=== PATIENT | male | born 1940 | race Caucasian/White ===

== ENCOUNTER → 2016-12-30 | Outpatient (CLI) | payer MEDICARE, OTHER | LOC: RAD 08:42 | PROVIDERS: ATTEND Nurse Practitioner Family | DX: R13.10 Dysphagia, unspecified (principal) | CPT/HCPCS: 74220 ==

== ENCOUNTER → 2017-01-21 | Day surgery (SDC) | payer MEDICARE, OTHER ==
[~2017-01-21] MED LIST: LIDOCAINE 2% JELLY 5 ML TUBE ONE
== END ==
LOC: END 07:24
PROVIDERS: ATTEND Nurse Practitioner Family
PROC: 4A0B7BZ Measurement of Gastrointestinal Pressure, Via Natural or Artificial Opening (ICD-10-PCS; principal; 2017-01-21)
DX: R13.10 Dysphagia, unspecified (principal)
CPT/HCPCS: 91010

== ENCOUNTER 2017-02-19 10:02 | Emergency (ER) | payer OTHER, MEDICARE ==
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
[2017-02-19] MEDS ORDERED: ACETAMINOPHEN 325 MG TABLET PO ONE (10:34)
[2017-02-19 11:27] VITALS: BP 166/79
== END 2017-02-19 11:27 | disposition home or self-care (01) ==
LOC: ER 10:02
DX: S02.40EA Zygomatic fracture, right side, initial encounter for closed fracture (principal); R68.84 Jaw pain; R22.0 Localized swelling, mass and lump, head; W22.8XXA Striking against or struck by other objects, initial encounter
CPT/HCPCS: 70486; 99284

== ENCOUNTER 2017-04-27 09:52 | Emergency (ER) | payer OTHER, MEDICARE ==
--- NOTE | 2017-04-27 10:57 | ER Document Report ---
ED Medical Screen (RME) - General Chief Complaint: Abdominal Pain Stated Complaint: ABDOMINAL PAIN,GROIN PAIN Time Seen by Provider: 04/27/17 10:53 Mode of Arrival: Ambulatory Information source: Patient TRAVEL OUTSIDE OF THE [place] IN LAST 30 DAYS: No - HPI Patient complains to provider of: abdominal pain Notes: 04/27/17 10:56 patient is a 76-year-old male who presents to the emergency room complaining of pain, mostly in his abdomen which radiates down into his testicles, he does report that he hurts "from my head to my toes", symptoms have been going on for the past 4-5 months, he was seen at [facility] recently and diagnosed with hematuria and proteinuria, was advised to get a CT scan which is scheduled for this Thursday, however he [facility] morning to tell them that he was not feeling any better and they advised him to come to the emergency room - Related Data Allergies/Adverse Reactions: latex Allergy (Verified 04/27/17 09:55) Past Medical History - Past Medical History Cardiac Medical History: Reports: Hx Coronary Artery Disease, Hx Hypertension Denies: Hx Heart Attack Pulmonary Medical History: Reports: Hx COPD Denies: Hx Asthma, Hx Bronchitis, Hx Pneumonia, Hx Tuberculosis Neurological Medical History: Denies: Hx Cerebrovascular Accident, Hx Seizures Endocrine Medical History: Reports: Hx Diabetes Mellitus Type 2 Renal/ Medical History: Denies: Hx Peritoneal Dialysis GI Medical History: Reports: Hx Gastroesophageal Reflux Disease Musculoskeltal Medical History: Reports Hx Arthritis Psychiatric Medical History: Denies: Hx Depression Past Surgical History: Reports: Hx Abdominal Surgery - had here, colon, Hx Bowel Surgery, Hx Testicular Surgery. Denies: Hx Pacemaker - Immunizations Immunizations up to date: Yes Hx Diphtheria, Pertussis, Tetanus Vaccination: Yes Physical Exam - Vital signs Vitals: Temp Pulse Resp BP Pulse Ox 98 F 83 18 126/71 H 96 04/27/17 09:55 04/27/17 09:55 04/27/17 09:55 04/27/17 09:55 04/27/17 09:55 Course - Vital Signs Vital signs: Temp Pulse Resp BP Pulse Ox 98 F 83 18 126/71 H 96 04/27/17 09:55 04/27/17 09:55 04/27/17 09:55 04/27/17 09:55 04/27/17 09:55
[2017-04-27 11:39] LABS: ABSOLUTE EOSINOPHILS # (AUTO) 0.1 10^3/uL (0.0-0.6); ABSOLUTE LYMPHOCYTES (AUTO) 1.3 10^3/uL (0.5-4.7); ABSOLUTE MONOCYTES (AUTO) 0.6 10^3/uL (0.1-1.4); ABSOLUTE NEUT (AUTO) 4.7 10^3/uL (1.7-8.2); BASOPHILS % (AUTO) 0.7 % (0-2); EOSINOPHILS % (AUTO) 1.4 % (0-6); HEMATOCRIT 39.6 % (37.9-51.0); HEMOGLOBIN 13.3 g/dL (13.5-17.0); HGB HCT DIFFERENCE 0.3; LYMPHOCYTES % (AUTO) 19.1 % (13-45); MEAN CORPUSCULAR HEMOGLOBIN 29.4 pg (27.0-33.4); MEAN CORPUSCULAR HGB CONC 33.5 g/dL (32.0-36.0); MEAN CORPUSCULAR VOLUME 88 fl (80-97); MONOCYTES % (AUTO) 8.5 % (3-13); RED BLOOD COUNT 4.52 10^6/uL (4.35-5.55); SEGMENTED NEUTROPHILS % (AUTO) 70.3 % (42-78); WHITE BLOOD COUNT 6.7 10^3/uL (4.0-10.5)
[2017-04-27 11:42] LABS: APPEARANCE,URINE CLOUDY; BILIRUBIN,URINE NEGATIVE (NEGATIVE); CALCIUM OXALATE CRYSTALS,URINE TOO NUMEROUS TO CNT /HPF; GLUCOSE, URINE NEGATIVE (NEGATIVE); KETONES,URINE NEGATIVE (NEGATIVE); LEUKOCYTE ESTERASE,URINE NEGATIVE (NEGATIVE); NITRITE,URINE NEGATIVE (NEGATIVE); PROTEIN,URINE 30 mg/dL (NEGATIVE); URINE SPECIFIC GRAVITY 1.029; UROBILINOGEN,URINE NEGATIVE mg/dL (<2.0)
[2017-04-27 11:54] LABS: ALANINE AMINOTRANSFERASE 32 U/L (21-72); ALBUMIN 4.6 g/dL (3.5-5.0); ALKALINE PHOSPHATASE 71 U/L (38-126); ANION GAP 13 (5-19); ASPARTATE AMINO TRANSFERASE 40 U/L (17-59); BILIRUBIN,DIRECT 0.3 mg/dL (0.0-0.4); BILIRUBIN,TOTAL 0.6 mg/dL (0.2-1.3); BLOOD UREA NITROGEN 20 mg/dL (7-20); CALCIUM 9.6 mg/dL (8.4-10.2); CARBON DIOXIDE 26 mmol/L (22-30); CHLORIDE 102 mmol/L (98-107); CREATININE RESULT 1.22 mg/dL (0.52-1.25); GLUCOSE 96 mg/dL (75-110); LIPASE 115.8 U/L (23-300); SODIUM 141.4 mmol/L (137-145); TOTAL PROTEIN 7.7 g/dL (6.3-8.2)
--- NOTE | 2017-04-27 12:12 | RADIOLOGY REPORT (SQ) ---
EXAM DESCRIPTION: CHEST PA/LAT COMPLETED DATE/TIME: 04/27/2017 11:47 am REASON FOR STUDY: cough COMPARISON: 10/18/2013. NUMBER OF VIEWS: Two view. TECHNIQUE: Frontal and lateral radiographic views of the chest acquired. LIMITATIONS: None. FINDINGS: LUNGS AND PLEURA: No opacities, masses or pneumothorax. No pleural effusion. Attenuated bl ood vessels and flattened jason-diaphragms. MEDIASTINUM AND HILAR STRUCTURES: No masses. No contour abnormalities. HEART AND VASCULAR STRUCTURES: Heart normal in size and contour. No evidence for failure. BONES: No acute findings. HARDWARE: Hardware in the right shoulder. OTHER: No other significant finding. IMPRESSION: COPD. NO ACUTE RADIOGRAPHIC FINDING IN THE CHEST. TECHNICAL DOCUMENTATION: JOB ID: [id number] [employer]- All Rights Reserved
--- NOTE | 2017-04-27 14:30 | RADIOLOGY REPORT (SQ) ---
EXAM DESCRIPTION: CT ABD/PELVIS WITH IV ORAL COMPLETED DATE/TIME: 04/27/2017 2:12 pm REASON FOR STUDY: abdominal pain COMPARISON: 05/24/2013 and 08/06/2011. TECHNIQUE: CT scan of the abdomen and pelvis performed with intravenous and oral contrast using shweta sadie scanning technique with dynamic intravenous contrast injection. Images reviewed with lung, soft t issue, and bone windows. Reconstructed coronal and sagittal MPR images reviewed. Delayed images for e valuation of the urinary system also acquired. All images stored on PACS. All CT scanners at this facility use dose modulation, iterative reconstruction, and/or weight based d osing when appropriate to reduce radiation dose to as low as reasonably achievable (ALARA). [facility]: Dose Right [facility]: CareDose [facility]: Dose Right [facility]: Teradose 4D [facility]: [employer] CONTRAST TYPE AND DOSE: contrast/concentration: Isovue 370.00 mg/ml; Total Contrast Delivered: 79.0 ml; Total Saline Delivered: 68.0 ml RENAL FUNCTION: BUN 20 creatinine 1.22. RADIATION DOSE: Up-to-date CT equipment and radiation dose reduction techniques were employed. CTDIv ol: 5.9 - 8.0 mGy. DLP: 773 mGy-cm. . LIMITATIONS: None. FINDINGS: LOWER CHEST: No significant findings. No nodules or infiltrates. LIVER: Normal size. No masses or dilated ducts. SPLEEN: Normal size. 1.2 cm low-attenuation lesion in the superior spleen. This measured 3-4 mm on the prior study. PANCREAS: Lobulated cystic structure in the head and proximal body of the pancreas. Currently measur es 2.1 x 5.0 cm. Previous measurement 1.6 x 3.9 cm. No enhancing lesions. No significant calcificat ions. No adjacent inflammation or peripancreatic fluid collections. Pancreatic duct not dilated. GALLBLADDER: No identified stones by CT criteria. No inflammatory changes to suggest cholecystitis. ADRENAL GLANDS: No significant masses or asymmetry. RIGHT KIDNEY AND URETER: Small subcentimeter cortical cyst No solid masses. No significant calcific ations. No hydronephrosis or hydroureter. LEFT KIDNEY AND URETER: No solid masses. 3 mm calculus in the lower pole. No hydronephrosis or hy droureter. AORTA AND VESSELS: No aneurysm. No dissection. Renal arteries, SMA, celiac without stenosis. RETROPERITONEUM: No retroperitoneal adenopathy, hemorrhage or masses. BOWEL AND PERITONEAL CAVITY: Right hemicolectomy. No obstruction. No visualized masses. No free flui d. No inflammatory changes or thickening of bowel wall. APPENDIX: Surgically absent. PELVIS: No significant masses. Normal bladder. No free fluid. ABDOMINAL WALL: No masses. Surgical mesh in the lower abdominal wall. No hernias. BONES: Stable lucent lesion in the left iliac crest with sclerotic center. Chronic changes in the sp ine. No acute findings. OTHER: No other significant finding. IMPRESSION: 1. LOBULATED CYSTIC LESION IN THE PROXIMAL PANCREAS SHOWS PROGRESSIVE INCREASE IN SIZE. CONCERNING F OR A CYSTIC PANCREATIC NEOPLASM. FURTHER EVALUATION WITH OUTPATIENT MRI OF THE PANCREAS MAY PROVIDE ADDITIONAL DETAIL. 2. NONOBSTRUCTING CALYCEAL CALCULUS IN THE LEFT KIDNEY. SMALL CORTICAL CYST IN THE RIGHT KIDNEY. 3. LOW-ATTENUATION LESION IN THE SUPERIOR ASPECT OF THE SPLEEN, POSSIBLY A SMALL CYST. 4. SURGICAL CHANGES AND CHRONIC BONY FINDINGS DESCRIBED ABOVE. 5. NO ACUTE FINDINGS. TECHNICAL DOCUMENTATION: JOB ID: [id number] Quality ID # [id number]: Final reports with documentation of one or more dose reduction techniques (e.g., Au tomated exposure control, adjustment of the mA and/or kV according to patient size, use of iterative reconstruction technique) 2010 [employer]- All Rights Reserved
--- NOTE | 2017-04-27 14:56 | ER Document Report ---
ED General - General Chief Complaint: Abdominal Pain Stated Complaint: ABDOMINAL PAIN,GROIN PAIN Time Seen by Provider: 04/27/17 10:53 Mode of Arrival: Ambulatory Information source: Patient Notes: 76-year-old male with extensive family history of pancreatic cancers presents with concerns of abdominal pain and possible pancreatic cancer. Patient notes he has not been feeling well over the past 5 months Denies any fevers or chills nausea vomiting or diarrhea TRAVEL OUTSIDE OF THE [place] IN LAST 30 DAYS: No - HPI Onset: Other Onset/Duration: Persistent Quality of pain: Achy Severity: Mild Pain Level: 1 Associated symptoms: Other Exacerbated by: Denies Relieved by: Denies Similar symptoms previously: Yes Recently seen / treated by doctor: Yes - Related Data Allergies/Adverse Reactions: latex Allergy (Verified 04/27/17 09:55) Past Medical History - General Information source: Patient - Social History Smoking Status: Former Smoker Cigarette use (# per day): No Chew tobacco use (# tins/day): No Smoking Education Provided: No Frequency of alcohol use: None Drug Abuse: None Family History: Reviewed & Not Pertinent Patient has suicidal ideation: No Patient has homicidal ideation: No - Past Medical History Cardiac Medical History: Reports: Hx Coronary Artery Disease, Hx Hypertension Denies: Hx Heart Attack Pulmonary Medical History: Reports: Hx COPD Denies: Hx Asthma, Hx Bronchitis, Hx Pneumonia, Hx Tuberculosis Neurological Medical History: Denies: Hx Cerebrovascular Accident, Hx Seizures Endocrine Medical History: Reports: Hx Diabetes Mellitus Type 2 Renal/ Medical History: Denies: Hx Peritoneal Dialysis GI Medical History: Reports: Hx Gastroesophageal Reflux Disease Musculoskeltal Medical History: Reports Hx Arthritis Psychiatric Medical History: Denies: Hx Depression Past Surgical History: Reports: Hx Abdominal Surgery - had here, colon, Hx Bowel Surgery, Hx Testicular Surgery. Denies: Hx Pacemaker - Immunizations Immunizations up to date: Yes Hx Diphtheria, Pertussis, Tetanus Vaccination: Yes Hx Pneumococcal Vaccination: 11/09/08 Review of Systems - Review of Systems Notes: REVIEW OF SYSTEMS: CONSTITUTIONAL : Denies fever, chills, or sweats. Denies recent illness. EENT: Denies eye, ear, throat, or mouth pain or symptoms. Denies nasal or sinus congestion or discharge. Denies throat, tongue, or mouth swelling or difficulty swallowing. CARDIOVASCULAR: Denies chest pain. Denies palpitations or racing or irregular heart beat. Denies ankle edema. RESPIRATORY: Denies cough, cold, or chest congestion. Denies shortness of breath, difficulty breathing, or wheezing. GASTROINTESTINAL: Admits to abdominal pain GENITOURINARY: Denies difficulty urinating, painful urination, burning, frequency, blood in urine, or discharge. MUSCULOSKELETAL: Denies back or neck pain or stiffness. Denies joint pain or swelling. SKIN: Denies rash, lesions or sores. HEMATOLOGIC : Denies easy bruising or bleeding. LYMPHATIC: Denies swollen, enlarged glands. NEUROLOGICAL: Denies confusion or altered mental status. Denies passing out or loss of consciousness. Denies dizziness or lightheadedness. Denies headache. Denies weakness or paralysis or loss of use of either side. Denies problems with gait or speech. Denies sensory loss, numbness, or tingling. Denies seizures. PSYCHIATRIC: Denies anxiety or stress. Denies depression, suicidal ideation, or homicidal ideation. ALL OTHER SYSTEMS REVIEWED AND NEGATIVE. Dictation was performed using [email or web address] voice recognition software PHYSICAL EXAMINATION: GENERAL: Well-appearing, well-nourished and in no acute distress. HEAD: Atraumatic, normocephalic. EYES: Pupils equal round and reactive to light, extraocular movements intact, sclera anicteric, conjunctiva are normal. ENT: Nares patent, oropharynx clear without exudates. Moist mucous membranes. NECK: Normal range of motion, supple without lymphadenopathy LUNGS: Breath sounds clear to auscultation bilaterally and equal. No wheezes rales or rhonchi. HEART: Regular rate and rhythm without murmurs ABDOMEN: Soft, nontender, nondistended abdomen. No guarding, no rebound. No masses appreciated. Musculoskeletal: Normal range of motion, no pitting or edema. No cyanosis. NEUROLOGICAL: Cranial nerves grossly intact. Normal speech, normal gait. Normal sensory, motor exams PSYCH: Normal mood, normal affect. SKIN: Warm, Dry, normal turgor, no rashes or lesions noted. Physical Exam - Vital signs Vitals: Temp Pulse Resp BP Pulse Ox 98 F 83 18 126/71 H 96 04/27/17 09:55 04/27/17 09:55 04/27/17 09:55 04/27/17 09:55 04/27/17 09:55 Course - Re-evaluation Re-evalutation: 04/27/17 16:31 Urinalysis is consistent with multiple numerous calcium oxalate crystals, however no large stone is noted in his ureter, given that the pain has been constant for 5-6 months I do not expect this to be the issue more worrisome the patient does not fact have a mass on his pancreas, therefore has been given to the patient he has been instructed to follow-up with oncology today. Patient states she will do so. Unfortunately have poor prognosis if it is pancreatic cancer After performing a Medical Screening Examination, I estimate there is LOW risk for ACUTE APPENDICITIS, BOWEL OBSTRUCTION, ACUTE CHOLECYSTITIS, PERFORATED DIVERTICULITIS, INCARCERATED HERNIA, PANCREATITIS, or PERFORATED ULCER, thus I consider the discharge disposition reasonable. Also, there is no evidence or peritonitis, sepsis, or toxicity. I have reevaluated this patient multiple times and no significant life threatening changes are noted. The patient and I have discussed the diagnosis and risks, and we agree with discharging home with close follow-up with the understanding that symptoms and presentations can change. We also discussed returning to the Emergency Department immediately if new or worsening symptoms occur. We have discussed the symptoms which are most concerning (e.g., bloody stool, fever, changing or worsening pain, intractable vomiting - standard verbal up date) that necessitate immediate return. - Vital Signs Vital signs: Temp Pulse Resp BP Pulse Ox 98 F 83 18 126/71 H 96 04/27/17 09:55 04/27/17 09:55 04/27/17 09:55 04/27/17 09:55 04/27/17 09:55 - Laboratory Result Diagrams: 04/27/17 11:20 04/27/17 11:20 Laboratory results interpreted by me: 04/27/17 04/27/17 04/27/17 11:20 11:20 11:20 Hgb 13.3 L Est GFR (Non-Af Amer) 58 L Urine Protein 30 H Urine Ascorbic Acid 40 H - Diagnostic Test Radiology reviewed: Image reviewed, Reports reviewed - Report given to patient concern for pancreatic mass Discharge - Discharge Clinical Impression: Pancreatic mass Abdominal pain Qualifiers: Abdominal location: generalized Qualified Code(s): R10.84 - Generalized abdominal pain Condition: Stable Disposition: HOME, SELF-CARE Instructions: Growth or Mass, Pending Workup (OM) Referrals: NATALEE WELLER MD [ACTIVE STAFF] - Follow up tomorrow MITCHELL HAN MD [ACTIVE STAFF] - Follow up tomorrow CARIDAD REGALADO MD [ACTIVE STAFF] - Follow up tomorrow
[2017-04-27 16:54] VITALS: BP 148/72
== END 2017-04-27 15:05 | disposition home or self-care (01) ==
LOC: ER 09:52
DX: K86.9 Disease of pancreas, unspecified (principal); R10.84 Generalized abdominal pain; R10.30 Lower abdominal pain, unspecified; Z80.8 Family history of malignant neoplasm of other organs or systems; Z87.891 Personal history of nicotine dependence
CPT/HCPCS: 36415; 71020; 74177; 80053; 81001; 83690; 85025; 99284

== ENCOUNTER → 2017-05-15 | Outpatient (CLI) | payer MEDICARE ==
--- NOTE | 2017-05-18 09:20 | RADIOLOGY REPORT (SQ) ---
EXAM DESCRIPTION: PET CT SKULL/THIGH COMPLETED DATE/TIME: 05/15/2017 12:34 pm REASON FOR STUDY: PANCREATIC CA (C25) C25.0 MALIGNANT NEOPLASM OF HEAD OF PANCREAS COMPARISON: CT abdomen pelvis 04/27/2017, 05/24/2013, 08/06/2011, 07/13/2007 MRI abdomen 07/07/2012 RADIONUCLIDE AND DOSE: 9.8 mCi F18 FDG The route of agent administration: Intravenous FASTING BLOOD SUGAR: 111 mg/dl CONTRAST TYPE AND DOSE: No CT contrast given. TECHNIQUE: Blood glucose level was verified. Above dose of FDG was injected intravenously. 2-D seg mented attenuation correction images were obtained from the base of the skull to the midthighs. Nonc ontrast CT images were obtained for attenuation correction and fusion with emission images. CT image s were performed without oral or intravenous contrast and are not sensitive for parenchymal lesions. A series of overlapping emission PET images were obtained. Images reviewed and manipulated at [facility] work station by the radiologist. Images stored on PACS. LIMITATIONS: None. FINDINGS: HEAD AND NECK: No areas of abnormal metabolic activity in the soft tissues of the head and neck. CHEST: No areas of abnormal metabolic activity in the chest. ABDOMEN AND PELVIS: Patient has a cystic lesion along the ventral edge of the pancreatic head and nec k, 5 cm transverse x 2.5 cm AP. This is non metabolic. This is similar compared to 04/27/2017, and l arger than on 05/24/2013 where it measured 4 x 2 cm in size. In 2006, this lesion measured about 3 by 1.4 cm size. No areas of abnormal metabolic activity in the abdomen or pelvis. Expected physiologic activity is p resent in the genitourinary system and bowel. PROXIMAL LOWER EXTREMITIES: No areas of abnormal metabolic activity in the soft tissues of the lower extremities. BONES: No abnormal metabolic activity in the visualized skeleton. A stable skeletal lesion is presen t in the left innominate bone 6 x 4 cm in size with peripheral lucency and central dense sclerosis. This non metabolic, and has not changed since [address] FINDINGS: Post right hemicolectomy. Old right humeral head prosthesis. Hiatal hernia repair, bilateral inguinal hernia repair, 5 mm left lower pole intrarenal nonobstructive stone, ather osclerotic aortoiliac and bilateral renal artery calcification OTHER: Liver SUV 2.1, blood pool activity 1.8 SUV IMPRESSION: Non metabolic cystic pancreatic mass TECHNICAL DOCUMENTATION: JOB ID: [id number] [employer]- All Rights Reserved
== END ==
LOC: RAD 10:20
PROVIDERS: ATTEND Internal Medicine
DX: C25.0 Malignant neoplasm of head of pancreas (principal)
CPT/HCPCS: 78815; A9552

== ENCOUNTER 2017-06-18 17:11 | Emergency (ER) | payer OTHER, MEDICARE ==
[2017-06-18 18:15] LABS: ABSOLUTE EOSINOPHILS # (AUTO) 0.1 10^3/uL (0.0-0.6); ABSOLUTE MONOCYTES (AUTO) 0.7 10^3/uL (0.1-1.4); ABSOLUTE NEUT (AUTO) 5.5 10^3/uL (1.7-8.2); BASOPHILS % (AUTO) 0.5 % (0-2); EOSINOPHILS % (AUTO) 1.2 % (0-6); HEMATOCRIT 35.8 % (37.9-51.0); HEMOGLOBIN 11.9 g/dL (13.5-17.0); HGB HCT DIFFERENCE -0.1; LYMPHOCYTES % (AUTO) 13.3 % (13-45); MEAN CORPUSCULAR HEMOGLOBIN 29.8 pg (27.0-33.4); MEAN CORPUSCULAR HGB CONC 33.2 g/dL (32.0-36.0); MEAN CORPUSCULAR VOLUME 90 fl (80-97); MONOCYTES % (AUTO) 9.2 % (3-13); RED CELL DISTRIBUTION WIDTH 13.4 % (11.5-14.0); SEGMENTED NEUTROPHILS % (AUTO) 75.8 % (42-78); WHITE BLOOD COUNT 7.2 10^3/uL (4.0-10.5)
[2017-06-18 18:23] LABS: ALANINE AMINOTRANSFERASE 44 U/L (21-72); ALBUMIN 4.1 g/dL (3.5-5.0); ALKALINE PHOSPHATASE 64 U/L (38-126); ANION GAP 10 (5-19); ASPARTATE AMINO TRANSFERASE 42 U/L (17-59); BILIRUBIN,DIRECT 0.4 mg/dL (0.0-0.4); BILIRUBIN,TOTAL 0.4 mg/dL (0.2-1.3); BLOOD UREA NITROGEN 29 mg/dL (7-20); CALCIUM 9.1 mg/dL (8.4-10.2); CARBON DIOXIDE 25 mmol/L (22-30); CHLORIDE 112 mmol/L (98-107); CREATINE KINASE 78 U/L (55-170); GLUCOSE 61 mg/dL (75-110); POTASSIUM 3.8 mmol/L (3.6-5.0); SODIUM 146.6 mmol/L (137-145); TOTAL PROTEIN 6.6 g/dL (6.3-8.2)
[2017-06-18 18:32] LABS: APPEARANCE,URINE CLOUDY; BILIRUBIN,URINE NEGATIVE (NEGATIVE); CALCIUM OXALATE CRYSTALS,URINE TOO NUMEROUS TO CNT /HPF; GLUCOSE, URINE NEGATIVE (NEGATIVE); KETONES,URINE NEGATIVE (NEGATIVE); LEUKOCYTE ESTERASE,URINE MODERATE (NEGATIVE); NITRITE,URINE NEGATIVE (NEGATIVE); PROTEIN,URINE 100 mg/dL (NEGATIVE)
[2017-06-18 18:35] LABS: CREATINE KINASE MB 2.75 ng/mL (<4.55); TROPONIN I 0.016 ng/mL
--- NOTE | 2017-06-18 19:20 | ER Document Report ---
ED Syncope and Near Syncope - General Information source: Patient TRAVEL OUTSIDE OF THE [place] IN LAST 30 DAYS: No <DESTINI WU - Last Filed: 06/18/17 22:50> <LINA BAILEY - Last Filed: 06/19/17 00:21> - General Chief Complaint: Syncope Stated Complaint: SYNCOPE Time Seen by Provider: 06/18/17 18:53 Notes: Patient is a 76 year old male that presents to the emergency department today with complaints of a syncopal episode that occurred just prior to arrival. According to the patient, he felt like he was going to have an episode of diarrhea just prior to this. Patient states he cannot remember whether or not he actually did have a bowel movement prior to the syncopal episode. Patient mentions that he was told he had a mass in his pancreas the last time he was seen here, he went to oncology at [facility] and he said that this mass was not cancerous and they opted not to operate on this because of inherent dangers of the Whipple procedure. Grand daughter at bedside states that she heard the patient fall, she got to him immediately and he was "not breathing" for a few seconds and then began gasping and moaning but not talking. states it took a few minutes for the patient to come back to his baseline. states the patient was in a "cold sweat". Patient denies any urinary symptoms. Granddaughter and at bedside deny any seizure-like activity. (DESTINI WU ) - Related Data Allergies/Adverse Reactions: latex Allergy (Verified 06/18/17 20:44) Past Medical History - General Information source: [facility], [facility] - Social History Smoking Status: Never Smoker Cigarette use (# per day): No Chew tobacco use (# tins/day): No Frequency of alcohol use: None Drug Abuse: None Lives with: Family Family History: Reviewed & Not Pertinent - Past Medical History Cardiac Medical History: Reports: Hx Coronary Artery Disease, Hx Hypertension Pulmonary Medical History: Reports: Hx COPD Endocrine Medical History: Reports: Hx Diabetes Mellitus Type 2 GI Medical History: Reports: Hx Gastroesophageal Reflux Disease Musculoskeltal Medical History: Reports Hx Arthritis Past Surgical History: Reports: Hx Abdominal Surgery - had here, colon, Hx Bowel Surgery, Hx Testicular Surgery - Immunizations Immunizations up to date: Yes Hx Diphtheria, Pertussis, Tetanus Vaccination: Yes Hx Pneumococcal Vaccination: 11/09/08 <DESTINI WU - Last Filed: 06/18/17 22:50> Review of Systems - Review of Systems Constitutional: No symptoms reported EENT: No symptoms reported Cardiovascular: See HPI, Syncope, Dizziness Respiratory: No symptoms reported Gastrointestinal: See HPI, Diarrhea Genitourinary: No symptoms reported Male Genitourinary: No symptoms reported Musculoskeletal: No symptoms reported Skin: No symptoms reported Hematologic/Lymphatic: No symptoms reported Neurological/Psychological: No symptoms reported -: Yes All other systems reviewed and negative <DESTINI WU - Last Filed: 06/18/17 22:50> Physical Exam <DESTINI WU - Last Filed: 06/18/17 22:50> <LINA BAILEY - Last Filed: 06/19/17 00:21> - Vital signs Vitals: Resp Pulse Ox 18 99 06/18/17 17:27 06/18/17 17:27 - Notes Notes: PHYSICAL EXAM GENERAL: Alert, interacts well. No acute distress. HEAD: Normocephalic, atraumatic. EYES: Pupils equal, round, and reactive to light. Extraocular movements intact. ENT: Oral mucosa moist, tongue midline. NECK: Full range of motion. Supple. Trachea midline. LUNGS: Clear to auscultation bilaterally, no wheezes, rales, or rhonchi. No respiratory distress. HEART: Mildly bradycardic, normal rhythm. No murmurs, gallops, or rubs. ABDOMEN: Easily reducible ventral hernia. Soft, non-tender. Non-distended. Bowel sounds present in all 4 quadrants. EXTREMITIES: Moves all 4 extremities spontaneously. No edema, radial and dorsalis pedis pulses 2/4 bilaterally. No cyanosis. NEUROLOGICAL: Alert and oriented x3. Normal speech. PSYCH: Normal affect, normal mood. SKIN: Warm, dry, normal turgor. No rashes or lesions noted. (DESTINI WU) Course - Laboratory Result Diagrams: 06/18/17 17:35 06/18/17 17:35 <DESTINI WU - Last Filed: 06/18/17 22:50> - Laboratory Result Diagrams: 06/18/17 17:35 06/18/17 17:35 <LINA BAILEY - Last Filed: 06/19/17 00:21> - Re-evaluation Re-evalutation: 06/18/17 23:05 CBC shows anemia with hemoglobin 11.9 this is chronic, no leukocytosis, CMP shows slightly worsened renal failure compared to baseline, urinalysis shows moderate leukocyte esterase and too numerous to count calcium oxalate crystals. Lipase normal, cardiac enzymes negative, no evidence of obstructive biliary process at this time. Abdominal ultrasound does not visualize the previously seen mass but there is no evidence of obstruction. Patient had occasional mild episodes of bradycardia but no severe or symptomatic bradycardia while he was here. Patient's syncopal episode happened right after he stood up after having diarrhea, suspect this was a vasovagal in nature. No evidence of ischemic cardiac event, no evidence of cardiac arrest. Patient is completely neurologically intact at this time. Patient will be discharged to home on antibiotics for the urinary tract infection, encouraged to return should he have any further dizzy spells. (LINA BAILEY) - Vital Signs Vital signs: Temp Pulse Resp BP Pulse Ox 98.3 F 54 L 18 186/92 H 100 06/18/17 23:20 06/18/17 18:55 06/18/17 23:20 06/18/17 23:20 06/18/17 22:51 - Laboratory Laboratory results interpreted by me: 06/18/17 06/18/17 06/18/17 17:35 17:35 17:35 RBC 4.00 L Hgb 11.9 L Hct 35.8 L Sodium 146.6 H Chloride 112 H BUN 29 H Creatinine 1.70 H Est GFR ( Amer) 48 L Est GFR (Non-Af Amer) 39 L Glucose 61 L Urine Protein 100 H Urine Urobilinogen 2.0 H Ur Leukocyte Esterase MODERATE H Urine Ascorbic Acid 40 H - EKG Interpretation by Me Additional EKG results interpreted by me: 06/18/17 23:07 EKG shows sinus bradycardia at a rate of 53, no ST segment elevations or depressions, right bundle branch block, rapid R-wave progression per my interpretation. (LINA BAILEY) Discharge <DESTINI WU - Last Filed: 06/18/17 22:50> <LINA BAILEY - Last Filed: 06/19/17 00:21> - Discharge Clinical Impression: Syncope Qualifiers: Syncope type: vasovagal syncope Qualified Code(s): R55 - Syncope and collapse Hypertension Qualifiers: Hypertension type: renovascular hypertension Qualified Code(s): I15.0 - Renovascular hypertension Urinary tract infection Qualifiers: Urinary tract infection type: acute cystitis Hematuria presence: with hematuria Qualified Code(s): N30.01 - Acute cystitis with hematuria Condition: Stable Disposition: HOME, SELF-CARE Additional Instructions: Vasovagal Symptoms Your symptoms seem to be due to a fall in blood pressure, caused by the interaction of your nervous system with your circulatory system. This can result in abnormally slow pulse rate, faintness, abnormal sensations, low blood pressure, difficulty with vision, or fainting (syncope). Vasovagal symptoms may be brought on by emotional distress, pain, dehydration, bleeding, or medication effects. Often, no cause can be identified. Your exam has revealed no signs of a serious problem. Usually, no further tests are required. However, if further workup has been recommended it's important that you follow up as instructed. Should you feel lightheaded or "about to faint," you should sit or lie down as quickly as possible. The episode will usually pass. Recurring symptoms will require further evaluation to determine the cause. Call the physician if you develop severe prolonged dizziness, headache, chest pain, shortness of breath, or other new symptoms. Prescriptions: Cephalexin Monohydrate [Keflex 500 mg Capsule] 500 mg PO QID #20 capsule Scribe Attestation: 06/19/17 00:21 I personally performed the services described in the documentation, reviewed and edited the documentation which was dictated to the scribe in my presence, and it accurately records my words and actions. (LINA BAILEY) Scribe Documentation - Scribe Written by Lisa:: Lisa Dai, 06/18/2017 [id number] acting as scribe for :: Scotty <DESTINI WU - Last Filed: 06/18/17 22:50>
[2017-06-18] MEDS ORDERED: NORMAL SALINE 500 ML IV ONE (19:50)
--- NOTE | 2017-06-18 22:00 | RADIOLOGY REPORT (SQ) ---
EXAM DESCRIPTION: U/S ABDOMEN LIMITED W/O DOP COMPLETED DATE/TIME: 06/18/2017 9:45 pm REASON FOR STUDY: RUQ pain, mass COMPARISON: None. TECHNIQUE: Dynamic and static grayscale images acquired of the abdomen and recorded on PACS. Additio nal selected color Doppler and spectral images recorded. LIMITATIONS: None. FINDINGS: PANCREAS: The mass demonstrated on PET-CT and recent CT is not appreciated by ultrasound. This is obscured by bowel gas. LIVER: No masses. Echotexture normal. LIVER VASCULATURE: Normal directional flow of the main portal vein and hepatic veins. GALLBLADDER: No stones. Normal wall thickness. No pericholecystic fluid. ULTRASOUND-DETECTED ESPINOZA'S SIGN: Negative. INTRAHEPATIC DUCTS AND COMMON DUCT: CBD and intrahepatic ducts normal caliber. No filling defects. INFERIOR VENA CAVA: Normal flow. AORTA: No aneurysm. RIGHT KIDNEY: Normal size. Normal echogenicity. No solid or suspicious masses. No hydronephrosis. No calcifications. PERITONEAL AND RIGHT PLEURAL SPACE: No ascites or effusions. OTHER: No other significant findings. IMPRESSION: Pancreatic lesion is not visualized. It is obscured by overlying bowel gas. No other s ignificant findings. TECHNICAL DOCUMENTATION: JOB ID: [id number] All Rights Reserved
[2017-06-18] MEDS ORDERED: CEFTRIAXONE 1 GM/D5W RTU 50 ML IV ONE (22:14)
[2017-06-18 23:38] VITALS: BP 186/92
--- NOTE | 2017-06-19 13:00 | EKG REPORT ---
SEVERITY:- ABNORMAL ECG - SINUS RHYTHM RIGHT BUNDLE BRANCH BLOCK INFERIOR Q WAVES, CONSIDER PRIOR INFERIOR SD : Confirmed by: Cheng Brumfield 19-Jun-2017 12:59:28
== END 2017-06-18 23:30 | disposition home or self-care (01) ==
LOC: ER 17:11
DX: R55 Syncope and collapse (principal); N30.01 Acute cystitis with hematuria; R19.7 Diarrhea, unspecified; R00.1 Bradycardia, unspecified; I45.10 Unspecified right bundle-branch block; K43.9 Ventral hernia without obstruction or gangrene; I25.10 Atherosclerotic heart disease of native coronary artery without angina pectoris; I12.9 Hypertensive chronic kidney disease with stage 1 through stage 4 chronic kidney disease, or unspecified chronic kidney disease; E11.22 Type 2 diabetes mellitus with diabetic chronic kidney disease; N18.9 Chronic kidney disease, unspecified; D64.9 Anemia, unspecified; J44.9 Chronic obstructive pulmonary disease, unspecified; Z91.040 Latex allergy status
CPT/HCPCS: 93005; 99285; 96361; 96365; 36415; 87040; 82553; 82550; 83690; 85025; 80053; 81001; 84484; 76705; 93010; J7040; J0696

== ENCOUNTER 2017-10-11 06:57 | Observation (INO) | payer OTHER, MEDICARE ==
[2017-10-11] MEDS ORDERED: MORPHINE SULFATE 10 MG/ML INJ IV ONE (07:22)
[2017-10-11] MEDS ORDERED: VANCOMYCIN HCL INJ 1000 MG VIAL IV ONE (07:22)
--- NOTE | 2017-10-11 07:32 | ER Document Report ---
ED General - General Chief Complaint: Hand Pain Stated Complaint: FINGER PAIN R HAND Time Seen by Provider: 10/11/17 07:10 Mode of Arrival: Ambulatory Information source: Patient Notes: 76-year-old male presents with one half week duration of finger pain. Patient notes about a week and half ago he was working with [employer], had a spine stick him in the finger. He noted over the next day that it became swollen red and painful, [facility], notes that since then the pain initially went down has worsened. Patient is unable to extend his finger notes pain with movement TRAVEL OUTSIDE OF THE [place] IN LAST 30 DAYS: No - HPI Onset: Last week Onset/Duration: Worse Quality of pain: Sharp Severity: Moderate Pain Level: 2 Associated symptoms: Other Exacerbated by: Movement Relieved by: Denies Similar symptoms previously: Yes Recently seen / treated by doctor: Yes - Related Data Allergies/Adverse Reactions: latex Allergy (Verified 10/11/17 07:00) Past Medical History - Social History Smoking Status: Never Smoker Cigarette use (# per day): No Chew tobacco use (# tins/day): No Smoking Education Provided: No Drug Abuse: None Family History: Reviewed & Not Pertinent Patient has suicidal ideation: No Patient has homicidal ideation: No - Past Medical History Cardiac Medical History: Reports: Hx Coronary Artery Disease, Hx Hypertension Denies: Hx Heart Attack Pulmonary Medical History: Reports: Hx COPD Denies: Hx Asthma, Hx Bronchitis, Hx Pneumonia, Hx Tuberculosis Neurological Medical History: Denies: Hx Cerebrovascular Accident, Hx Seizures Endocrine Medical History: Reports: Hx Diabetes Mellitus Type 2 Renal/ Medical History: Denies: Hx Peritoneal Dialysis GI Medical History: Reports: Hx Gastroesophageal Reflux Disease Musculoskeltal Medical History: Reports Hx Arthritis Psychiatric Medical History: Denies: Hx Depression Past Surgical History: Reports: Hx Abdominal Surgery - had here, colon, Hx Bowel Surgery, Hx Testicular Surgery. Denies: Hx Pacemaker - Immunizations Immunizations up to date: Yes Hx Diphtheria, Pertussis, Tetanus Vaccination: Yes Hx Pneumococcal Vaccination: 11/09/08 Review of Systems - Review of Systems Notes: REVIEW OF SYSTEMS: CONSTITUTIONAL : Denies fever, chills, or sweats. Denies recent illness. EENT: Denies eye, ear, throat, or mouth pain or symptoms. Denies nasal or sinus congestion or discharge. Denies throat, tongue, or mouth swelling or difficulty swallowing. CARDIOVASCULAR: Denies chest pain. Denies palpitations or racing or irregular heart beat. Denies ankle edema. RESPIRATORY: Denies cough, cold, or chest congestion. Denies shortness of breath, difficulty breathing, or wheezing. GASTROINTESTINAL: Denies abdominal pain or distention. Denies nausea, vomiting , or diarrhea. Denies blood in vomitus, stools, or per rectum. Denies black, tarry stools. Denies constipation. GENITOURINARY: Denies difficulty urinating, painful urination, burning, frequency, blood in urine, or discharge. MUSCULOSKELETAL: right hand 4th digit pain SKIN: redness to finger HEMATOLOGIC : Denies easy bruising or bleeding. LYMPHATIC: Denies swollen, enlarged glands. NEUROLOGICAL: Denies confusion or altered mental status. Denies passing out or loss of consciousness. Denies dizziness or lightheadedness. Denies headache. Denies weakness or paralysis or loss of use of either side. Denies problems with gait or speech. Denies sensory loss, numbness, or tingling. Denies seizures. PSYCHIATRIC: Denies anxiety or stress. Denies depression, suicidal ideation, or homicidal ideation. ALL OTHER SYSTEMS REVIEWED AND NEGATIVE. Dictation was performed using [employer] voice recognition software PHYSICAL EXAMINATION: GENERAL: Well-appearing, well-nourished and in no acute distress. HEAD: Atraumatic, normocephalic. EYES: Pupils equal round extraocular movements intact, conjunctiva are normal. ENT: Nares patent NECK: Normal range of motion LUNGS: No respiratory distress Musculoskeletal: Patient has arthritic changes in all digits, in right hand fourth digit is contracted in flexion, patient is unable to extend fully, it is erythematous at the joint space and swollen all throughout. NEUROLOGICAL: Normal speech, normal gait. PSYCH: Normal mood, normal affect. SKIN: Warm, Dry, normal turgor, no rashes or lesions noted. Physical Exam - Vital signs Vitals: Temp Pulse Resp BP Pulse Ox 97.9 F 71 16 110/55 L 97 10/11/17 07:06 10/11/17 07:06 10/11/17 07:06 10/11/17 07:06 10/11/17 07:06 Course - Re-evaluation Re-evalutation: 10/11/17 07:29 Dr Piedra called on cell phone due ot ocncern for flexor tenosynovitis , he requests lab work and will evaluate in the ED 10/11/17 07:35 10/11/17 08:49 Dr Piedra will admit ot his service due ot concerns of cellulitis - Vital Signs Vital signs: Temp Pulse Resp BP Pulse Ox 97.9 F 71 16 110/55 L 97 10/11/17 07:06 10/11/17 07:06 10/11/17 07:06 10/11/17 07:06 10/11/17 07:06 - Laboratory Result Diagrams: 10/11/17 07:45 10/11/17 07:45 Laboratory results interpreted by me: 10/11/17 10/11/17 07:45 07:45 RBC 3.71 L Hgb 11.0 L Hct 32.5 L BUN 27 H Est GFR (Non-Af Amer) 56 L Total Protein 6.0 L - Diagnostic Test Radiology reviewed: Image reviewed, Reports reviewed Discharge - Discharge Clinical Impression: Finger pain, right Cellulitis Qualifiers: Site of cellulitis of extremity: finger Laterality: right Qualified Code(s): L03.011 - Cellulitis of right finger Condition: Stable Disposition: ADMITTED INPATIENT Admitting Provider: Dorothea Unit Admitted: Surgical Floor
--- NOTE | 2017-10-11 07:54 | RADIOLOGY REPORT (SQ) ---
EXAM DESCRIPTION: FINGER RIGHT COMPLETED DATE/TIME: 10/11/2017 7:43 am REASON FOR STUDY: concern for infection COMPARISON: None. NUMBER OF VIEWS: Three views. TECHNIQUE: AP, lateral, and oblique images acquired of the right fourth finger. LIMITATIONS: None. FINDINGS: MINERALIZATION: Osteopenia. BONES: No acute fracture or dislocation. No worrisome bone lesions. [id number] osteoarthritis involves the interphalangeal joints and 1st carpometacarpal joint. Several ossicular loose bodies o f the ulnocarpal joint measure up to 0.8 cm each. 0.3 cm ossicular fragment at the lateral aspect of the 1st carpometacarpal joint. Bones and joints of the 4th digit appear intact, as queried. SOFT TISSUES: Possible swelling of the 4th digit. No foreign body. OTHER: No other significant finding. IMPRESSION: No acute bone or joint defect. [id number]-[id number] osteoarthritis. COMMENT: SITE OF TRAUMA/COMPLAINT MARKED/STAMP COMPLETED: YES. TECHNICAL DOCUMENTATION: JOB ID: [id number] [employer]- All Rights Reserved
[2017-10-11 08:32] LABS: ABSOLUTE BASOPHILS # (AUTO) 0.1 10^3/uL (0.0-0.2); ABSOLUTE EOSINOPHILS # (AUTO) 0.1 10^3/uL (0.0-0.6); ABSOLUTE LYMPHOCYTES (AUTO) 1.1 10^3/uL (0.5-4.7); ABSOLUTE MONOCYTES (AUTO) 0.5 10^3/uL (0.1-1.4); ABSOLUTE NEUT (AUTO) 4.3 10^3/uL (1.7-8.2); BASOPHILS % (AUTO) 0.8 % (0-2); EOSINOPHILS % (AUTO) 1.8 % (0-6); HEMATOCRIT 32.5 % (37.9-51.0); HGB HCT DIFFERENCE 0.5; LYMPHOCYTES % (AUTO) 18.5 % (13-45); MEAN CORPUSCULAR HEMOGLOBIN 29.5 pg (27.0-33.4); MEAN CORPUSCULAR HGB CONC 33.8 g/dL (32.0-36.0); MEAN CORPUSCULAR VOLUME 88 fl (80-97); MONOCYTES % (AUTO) 8.3 % (3-13); RED BLOOD COUNT 3.71 10^6/uL (4.35-5.55); RED CELL DISTRIBUTION WIDTH 13.5 % (11.5-14.0); SEGMENTED NEUTROPHILS % (AUTO) 70.6 % (42-78); WHITE BLOOD COUNT 6.1 10^3/uL (4.0-10.5)
[2017-10-11 08:42] LABS: ALANINE AMINOTRANSFERASE 39 U/L (21-72); ALBUMIN 3.8 g/dL (3.5-5.0); ALKALINE PHOSPHATASE 66 U/L (38-126); ANION GAP 12 (5-19); ASPARTATE AMINO TRANSFERASE 35 U/L (17-59); BILIRUBIN,DIRECT 0.3 mg/dL (0.0-0.4); BILIRUBIN,TOTAL 0.4 mg/dL (0.2-1.3); BLOOD UREA NITROGEN 27 mg/dL (7-20); CALCIUM 8.8 mg/dL (8.4-10.2); CARBON DIOXIDE 25 mmol/L (22-30); CHLORIDE 106 mmol/L (98-107); CREATININE RESULT 1.25 mg/dL (0.52-1.25); GLUCOSE 93 mg/dL (75-110); POTASSIUM 4.1 mmol/L (3.6-5.0); SODIUM 142.5 mmol/L (137-145)
[2017-10-11 08:47] LABS: C-REACTIVE PROTEIN < 5.0 mg/L (<10.0)
[2017-10-11] MEDS ORDERED: MORPHINE SULFATE 10 MG/ML INJ IV PRN (08:49)
[2017-10-11] MEDS ORDERED: OXYCODONE-ACETAMINOPHEN 5-325 MG TABLET PO PRN (08:49)
[2017-10-11] MEDS ORDERED: ONDANSETRON HCL INJ/PF 4 MG/2 ML SDV IV PRN (08:49)
[2017-10-11 09:12] LABS: ERYTHROCYTE SEDIMENTATION RATE 19 mm/hr (0-20)
--- NOTE | 2017-10-11 09:20 | PDOC H&P ---
History of Present Illness Patient complains of: Right ring finger pain History of Present Illness: KIERSTEN BEAN is a 76 year old male patient presents today for evaluation of his right ring finger. States 2 week ago he began having pain swelling and redness he was seen at [facility] and started on antibiotics. He states it significantly improved at that time but over the past 48 hours the pain returned he has difficulty moving his fingers and has increased swelling of the ring finger. Denies fever chills or sweats. States he has been eating more shrimp likely which has caused him cramps and discomfort throughout his extremities. Unaware of history of gout. Notes history of MRSA. Past Medical History Cardiac Medical History: Reports: Coronary Artery Disease, Hypertension Denies: Myocardial Infarction Pulmonary Medical History: Reports: Chronic Obstructive Pulmonary Disease (COPD) Denies: Asthma, Bronchitis, Pneumonia, Tuberculosis Neurological Medical History: Denies: Seizures Endocrine Medical History: Reports: Diabetes Mellitus Type 2 GI Medical History: Reports: Gastroesophageal Reflux Disease Musculoskeltal Medical History: Reports: Arthritis Psychiatric Medical History: Denies: Depression Hematology: Denies: Anemia Past Surgical History Past Surgical History: Denies: Pacemaker Social History Smoking Status: Never Smoker Frequency of Alcohol Use: None Hx Recreational Drug Use: No Drugs: Marijuana Hx Prescription Drug Abuse: No Family History Family History: Reviewed & Not Pertinent Parental Family History Reviewed: No Children Family History Reviewed: No Sibling(s) Family History Reviewed.: No Medication/Allergy Allergies/Adverse Reactions: latex Allergy (Verified 10/11/17 07:00) Review of Systems All systems: as per PMH Constitutional: ABSENT: chills, fever(s), headache(s), weight gain, weight loss Eyes: ABSENT: visual disturbances Ears: ABSENT: hearing changes Cardiovascular: ABSENT: chest pain, dyspnea on exertion, edema, orthropnea, palpitations Respiratory: ABSENT: cough, hemoptysis Gastrointestinal: ABSENT: abdominal pain, constipation, diarrhea, hematemesis, hematochezia, nausea, vomiting Genitourinary: PRESENT: hematuria. ABSENT: dysuria Musculoskeletal: PRESENT: as per HPI Integumentary: ABSENT: rash, wounds Neurological: ABSENT: abnormal gait, abnormal speech, confusion, dizziness, focal weakness, syncope Psychiatric: ABSENT: anxiety, depression, homidical ideation, suicidal ideation Endocrine: ABSENT: cold intolerance, heat intolerance, menstrual abnormalities, polydipsia, polyuria Hematologic/Lymphatic: ABSENT: easy bleeding, easy bruising, lymphadenopathy Physical Exam Vital Signs: Temp Pulse Resp BP Pulse Ox 97.9 F 71 16 110/55 L 97 10/11/17 07:06 10/11/17 07:06 10/11/17 07:06 10/11/17 07:06 10/11/17 07:06 Intake & Output 10/10/17 10/11/17 10/12/17 06:59 06:59 06:59 Weight 72.575 kg General appearance: PRESENT: no acute distress, well-developed, well-nourished Head exam: PRESENT: atraumatic, normocephalic Eye exam: PRESENT: conjunctiva pink, EOMI, PERRLA. ABSENT: scleral icterus Ear exam: PRESENT: normal external ear exam Mouth exam: PRESENT: moist, tongue midline Neck exam: PRESENT: full ROM. ABSENT: carotid bruit, JVD, lymphadenopathy, thyromegaly Cardiovascular exam: PRESENT: RRR. ABSENT: diastolic murmur, rubs, systolic murmur Pulses: PRESENT: normal dorsalis pedis pul, +2 pedal pulses bilateral Vascular exam: PRESENT: normal capillary refill GI/Abdominal exam: PRESENT: normal bowel sounds, soft. ABSENT: distended, guarding, mass, organolmegaly, rebound, tenderness Rectal exam: PRESENT: deferred Musculoskeletal exam: PRESENT: other - Right ring finger: Swelling along the ring finger compared to a non-affected side. Exquisite tenderness along the PIP joint radially and ulnarly. No significant effusion noted. Mild soft tissue swelling dorsally. No pain with PIP joint mid arc range of motion. Pain with terminal flexion and extension. No tenderness along the flexor sheath. No significant fusiform swelling appreciated. Patient has degenerative changes noted of the PIP and DIP joint with flexed position of PIPs of middle and small finger. Neurological exam: PRESENT: alert, awake, oriented to person, oriented to place , oriented to time, oriented to situation, CN II-XII grossly intact. ABSENT: motor sensory deficit Psychiatric exam: PRESENT: appropriate affect, normal mood. ABSENT: homicidal ideation, suicidal ideation Skin exam: PRESENT: dry, intact, warm. ABSENT: cyanosis, rash Results Laboratory Results: 10/11/17 07:45 10/11/17 07:45 10/11/17 10/11/17 07:45 07:45 WBC 6.1 RBC 3.71 L Hgb 11.0 L Hct 32.5 L MCV 88 MCH 29.5 MCHC 33.8 RDW 13.5 Plt Count 186 Seg Neutrophils % 70.6 Lymphocytes % 18.5 Monocytes % 8.3 Eosinophils % 1.8 Basophils % 0.8 Absolute Neutrophils 4.3 Absolute Lymphocytes 1.1 Absolute Monocytes 0.5 Absolute Eosinophils 0.1 Absolute Basophils 0.1 Sodium 142.5 Potassium 4.1 Chloride 106 Carbon Dioxide 25 Anion Gap 12 BUN 27 H Creatinine 1.25 Est GFR ( Amer) > 60 Est GFR (Non-Af Amer) 56 L Glucose 93 Calcium 8.8 Total Bilirubin 0.4 AST 35 ALT 39 Alkaline Phosphatase 66 C-Reactive Protein < 5.0 Total Protein 6.0 L Albumin 3.8 Impressions: Finger X-Ray 10/11/17 07:29 IMPRESSION: No acute bone or joint defect. [id number] osteoarthritis. Status: Image reviewed by me - I have reviewed patient's radiographs demonstrate moderate degenerative changes of the PIP joint with osteophyte formation and soft tissue swelling. Assessment & Plan - Diagnosis (1) Cellulitis Qualifiers: Site of cellulitis of extremity: finger Laterality: right Qualified Code( s): L03.011 - Cellulitis of right finger Is this a current diagnosis for this admission?: Yes Plan: On examination patient does not meet all diagnostic criteria for flexor tenosynovitis however this remains within differential diagnosis. At this point I feel majority of patient's discomfort is more cellulitic in nature as opposed to septic joint or flexor tenosynovitis thus today patient will be started on antibiotics including MRSA coverage given his history of MRSA furthermore if he continues to have discomfort would consider MRI. 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 Lastly given patient's recent reaction to shellfish and polyarthralgia type complaints I will start the patient on colchicine prophylactically for gout.
--- NOTE | 2017-10-11 09:45 | EKG REPORT ---
SEVERITY:- ABNORMAL ECG - SINUS RHYTHM FIRST DEGREE AV BLOCK RIGHT BUNDLE BRANCH BLOCK BORDERLINE INFERIOR Q WAVES : Confirmed by: Andrews Mccrary MD 11-Oct-2017 09:45:20
[2017-10-11] MEDS ORDERED: COLCHICINE 0.6 MG TABLET PO ONE (10:00)
[2017-10-11] MEDS ORDERED: AMPICILLIN SOD/SULBACTAM 1.5 GM VIAL IV SCH (12:00)
[2017-10-11] MEDS: AMPICILLIN SODIUM/SULBACTAM NA 1.5 GM in NORMAL SALINE 50 ML IV SCH ×2 (17:08→20:41)
[2017-10-11] MEDS ORDERED: KETOROLAC TROMETHAMINE INJ/PF 30 MG/1 ML SDV IV PRN (18:44)
[2017-10-11] MEDS ORDERED: VANCOMYCIN HCL INJ 1000 MG VIAL IV PRN (19:13)
[2017-10-11] MEDS ORDERED: VANCOMYCIN HCL INJ 1000 MG VIAL ONE (21:39)
[2017-10-11] MEDS: VANCOMYCIN HCL 1,000 MG in DEXTROSE 5%-WATER 250 ML IV SCH (21:52)
[2017-10-11] MEDS ORDERED: RIVAROXABAN 10 MG TABLET PO SCH (22:00)
[2017-10-12] MEDS: AMPICILLIN SODIUM/SULBACTAM NA 1.5 GM in NORMAL SALINE 50 ML IV SCH ×3 (02:53→14:34)
--- NOTE | 2017-10-12 08:12 | PDOC DISCHARGE SUMMARY ---
General - Admit/Disc Date/PCP Admission Date/Primary Care Provider: 10/11/17 09:09 Discharge Date: 10/12/17 - Discharge Diagnosis (1) Cellulitis Is this a current diagnosis for this admission?: Yes - Additional Information Resuscitation Status: Full Code Discharge Diet: Regular Discharge Activity: Activity As Tolerated Home Medications: Hydralazine HCl [Apresoline 10 mg Tablet] 20 mg PO BID 10/11/17 Lisinopril [Zestril] 5 mg PO DAILY 10/11/17 Nifedipine [Nifedipine ER] 60 mg PO DAILY 10/11/17 Ranitidine HCl [Zantac 150 mg Tablet] 150 mg PO BIDP PRN 10/11/17 Sucralfate [Carafate 1 gm Tablet] 1 gm PO QID 10/11/17 Sulfamethoxazole/Trimethoprim [Bactrim Ds Tablet] 1 each PO BID PRN #10 tablet 10/12/17 History of Present Illness History of Present Illness: KIERSTEN BEAN is a 76 year old male patient presents today for evaluation of his right ring finger. States 2 week ago he began having pain swelling and redness he was seen at the [place] and started on antibiotics. He states it significantly improved at that time but over the past 48 hours the pain returned he has difficulty moving his fingers and has increased swelling of the ring finger. Denies fever chills or sweats. States he has been eating more shrimp likely which has caused him cramps and discomfort throughout his extremities. Unaware of history of gout. Notes history of MRSA. Hospital Course Hospital Course: Patient was admitted under observation for IV antibiotics. Over 24 hours patient saw significant improvement of his pain swelling and discomfort after IV antibiotics and anti-inflammatories. Underlying gout could still be cause for patient's issue however superficial infection continues within the differential diagnosis. Given the patient saw significant improvement and had no pain or discomfort on examination today the decision was made to proceed with discharge on p.o. antibiotics. Furthermore patient's history of pancreatic tumor was discussed with patient's oncologist who will set the patient up for outpatient evaluation. Physical Exam Vital Signs: Temp Pulse Resp BP Pulse Ox 97.5 F 70 18 164/76 H 99 10/11/17 23:26 10/11/17 23:26 10/11/17 23:26 10/11/17 23:26 10/11/17 23:26 Intake & Output 10/11/17 10/12/17 10/13/17 06:59 06:59 06:59 Intake Total 585 Output Total 0 Balance 585 Weight 73.4 kg General appearance: PRESENT: no acute distress, well-developed, well-nourished Head exam: PRESENT: atraumatic, normocephalic Eye exam: PRESENT: conjunctiva pink, EOMI, PERRLA. ABSENT: scleral icterus Ear exam: PRESENT: normal external ear exam Mouth exam: PRESENT: moist, tongue midline Neck exam: PRESENT: full ROM. ABSENT: carotid bruit, JVD, lymphadenopathy, thyromegaly Cardiovascular exam: PRESENT: RRR. ABSENT: diastolic murmur, rubs, systolic murmur Pulses: PRESENT: normal dorsalis pedis pul, +2 pedal pulses bilateral Vascular exam: PRESENT: normal capillary refill GI/Abdominal exam: PRESENT: normal bowel sounds, soft. ABSENT: distended, guarding, mass, organolmegaly, rebound, tenderness Rectal exam: PRESENT: deferred Musculoskeletal exam: PRESENT: other - Right ring finger: No tenderness palpation on the joint line. Flexed position of the PIPs middle ring and small finger. Patient able to make full composite fist without discomfort. No pain with passive stretch. No tenderness to palpation of the flexor sheath. No fusiform swelling. Neurological exam: PRESENT: alert, awake, oriented to person, oriented to place , oriented to time, oriented to situation, CN II-XII grossly intact. ABSENT: motor sensory deficit Psychiatric exam: PRESENT: appropriate affect, normal mood. ABSENT: homicidal ideation, suicidal ideation Skin exam: PRESENT: dry, intact, warm. ABSENT: cyanosis, rash Results Impressions: Finger X-Ray 10/11/17 07:29 IMPRESSION: No acute bone or joint defect. [id number] osteoarthritis. Plan Discharge Plan: Patient will be discharged on p.o. antibiotics. I have recommended he follow- up with his primary care physician for further evaluation and treatment of possible gouty arthropathy as well. Patient is to call or present to the emergency room he has increasing pain redness swelling or temperature greater than 101.5.
[2017-10-12] MEDS ORDERED: FAMOTIDINE 20 MG TABLET PO PRN (08:50)
[2017-10-12] MEDS ORDERED: ONDANSETRON HCL INJ/PF 4 MG/2 ML SDV IV PRN (09:00)
[2017-10-12] MEDS ORDERED: VANCOMYCIN HCL INJ 1000 MG VIAL IV SCH (10:00)
[2017-10-12] MEDS ORDERED: LISINOPRIL 5 MG TABLET PO SCH (10:00)
[2017-10-12] MEDS ORDERED: HYDRALAZINE HCL 10 MG TABLET PO SCH (10:00)
[2017-10-12] MEDS ORDERED: NIFEDIPINE 30 MG TAB.ER.24 PO SCH (10:00)
[2017-10-12] MEDS: VANCOMYCIN HCL 1,000 MG in DEXTROSE 5%-WATER 250 ML IV SCH (10:57)
[2017-10-12] MEDS ORDERED: SUCRALFATE 1 GM TABLET PO SCH (11:00)
--- NOTE | 2017-10-12 14:15 | PDOC CONSULTATION ---
Consultation Consult Date: 10/12/17 Attending physician:: LEO TONG Consult reason:: Hypertension History of Present Illness Admission Date/PCP: 10/11/17 09:09 History of Present Illness: KIERSTEN BEAN is a 76 year old male patient who presented to the orthopedic surgery service for cellulitis of his right ring finger. The patient has been discharged today after receiving IV antibiotics. Unfortunately his blood pressure was elevated as high as 196 systolic. The patient has a history of severe hypertension. He tells me that he takes his blood pressure medicines regularly but that for the last 34 years he has always had trouble with his blood pressure. His blood pressure is currently managed at the local [place] [facility]. He is currently on hydralazine 20 mg twice a day, nifedipine 60 mg daily, lisinopril 5 mg daily. The patient states that sometimes he has to take an extra tablet of the nifedipine for total dose of 90 mg daily. He usually judges this by whatever his blood pressure is doing for the day. On admission the patient's systolic blood pressure was noted to be 131. His home medications were not started here in the hospital. Over the course of time the patient's blood pressure gradually trended up to what it is today at 196/90. The patient was given his blood pressure medicines at 9:45 today. This is would be his first dose of medications in over 24 hours. Repeat blood pressure at the time of my visit is 179 systolic in the right arm and 174 systolic in the left at the bedside. The patient states he usually gets headaches and has a small one now. He states his blood pressures usually run this high even without his medications. Sometimes it will come right back down. Past Medical History Cardiac Medical History: Reports: Coronary Artery Disease, Hypertension Pulmonary Medical History: Reports: Chronic Obstructive Pulmonary Disease (COPD) Endocrine Medical History: Reports: Diabetes Mellitus Type 2 GI Medical History: Reports: Gastroesophageal Reflux Disease Musculoskeltal Medical History: Reports: Arthritis Past Surgical History Past Surgical History: Reports: Herniorrhaphy Social History Smoking Status: Never Smoker Frequency of Alcohol Use: None Hx Recreational Drug Use: No Drugs: Marijuana Hx Prescription Drug Abuse: No - Advance Directive Resuscitation Status: Full Code Family History Family History: Reviewed & Not Pertinent Medication/Allergy Home Medications: Lisinopril [Zestril] 5 mg PO DAILY 10/11/17 Nifedipine [Nifedipine ER] 60 mg PO DAILY 10/11/17 Ranitidine HCl [Zantac 150 mg Tablet] 150 mg PO BIDP PRN 10/11/17 Sucralfate [Carafate 1 gm Tablet] 1 gm PO QID 10/11/17 Hydralazine HCl [Apresoline 10 mg Tablet] 20 mg PO TID #90 tablet 10/12/17 Sulfamethoxazole/Trimethoprim [Bactrim Ds Tablet] 1 each PO BID PRN #10 tablet 10/12/17 Allergies/Adverse Reactions: latex Allergy (Verified 10/11/17 07:00) Review of Systems Review of Systems: Patient denies any current fevers, chills, nausea, vomiting, blood in stool, blood in the urine, coughing up blood, bloody emesis. He does report headache. He describes it as small. Physical Exam Vital Signs: Temp Pulse Resp BP Pulse Ox 97.7 F 51 L 16 196/90 H 100 10/12/17 11:32 10/12/17 11:32 10/12/17 07:34 10/12/17 12:18 10/12/17 11:32 Intake & Output 10/11/17 10/12/17 10/13/17 06:59 06:59 06:59 Intake Total 585 Output Total 0 Balance 585 Weight 73.4 kg GENERAL: This is a well-developed and nourished appearing white male resting in bed currently in no acute distress. HEENT: Normocephalic atraumatic. Trachea is midline. Sclera are anicteric. Moist mucous membranes. HEART: Regular rate and rhythm. No murmurs, rubs or gallops. LUNGS: Clear to auscultation bilaterally with equal rise and fall of the chest. ABDOMEN: Soft, nontender, nondistended with normoactive bowel sounds EXTREMETIES: No clubbing, cyanosis or edema. 2+ peripheral pulses bilaterally. NEURO: Awake, alert and oriented 3. Cranial nerves II through XII are grossly intact. Results Impressions: Finger X-Ray 10/11/17 07:29 IMPRESSION: No acute bone or joint defect. Bgsc-[id number] osteoarthritis. Assessment & Plan - Diagnosis (1) Uncontrolled hypertension Is this a current diagnosis for this admission?: Yes Plan: Patient is currently on several medications to include lisinopril, nifedipine, hydralazine. I think part of the problem may be due to rebound hypertension. Right now the patient's hydralazine is scheduled for 20 mg every 12 hours. This is too far apart and would allow for rebound hypertension. At minimum the patient should be dosed 3 times daily and preferably 4 times daily. I am going to give the patient a stat dose of hydralazine and change his prescription to 20 mg 3 times daily. He was asked to follow-up with his primary care physician in regards to management of his blood pressures. Unfortunately, I cannot add on medications such as beta-joana or calcium channel joana secondary to the patient's bradycardia in the low 50s. If he still remains elevated, one might consider going up on his lisinopril or changing his hydralazine to 4 times daily. A prescription for hydralazine 3 times daily was made for the patient. (2) Hyperlipidemia Plan: Continue home medications. (3) Cellulitis Qualifiers: Site of cellulitis of extremity: finger Laterality: right Qualified Code( s): L03.011 - Cellulitis of right finger Is this a current diagnosis for this admission?: Yes Plan: As per primary service. - Time Time Spent: 30 to 50 Minutes Within: within 24 hours
[2017-10-12] MEDS ORDERED: HYDRALAZINE HCL INJ/PF 20 MG/1 ML SDV IV ONE (14:45)
[2017-10-12 15:39] VITALS: BP 196/90
== END 2017-10-12 16:59 | disposition home or self-care (01) ==
LOC: ER 06:57 → EH 09:09 → INTOOBSV 09:09 → 4W 12:07
PROVIDERS: ADMIT Orthopaedic Surgery; ATTEND Orthopaedic Surgery
DX: L03.011 Cellulitis of right finger (principal); M19.041 Primary osteoarthritis, right hand; M18.9 Osteoarthritis of first carpometacarpal joint, unspecified; I10 Essential (primary) hypertension; R51 Headache; R00.1 Bradycardia, unspecified; E78.5 Hyperlipidemia, unspecified; K21.9 Gastro-esophageal reflux disease without esophagitis; I25.10 Atherosclerotic heart disease of native coronary artery without angina pectoris; Z86.14 Personal history of Methicillin resistant Staphylococcus aureus infection; Z79.899 Other long term (current) drug therapy
CPT/HCPCS: 93005; 99285; 96374; 36415; 87040; 84550; 85025; 85652; 86140; 80053; 73140; 93010; G0378 ×3; J3490; J0360; J2270; J0295 ×2; J2405; J7060; J3370 ×2

== ENCOUNTER 2017-12-16 19:05 | Emergency (ER) | payer OTHER, MEDICARE ==
[2017-12-16 19:21] VITALS: BP 154/77
[2017-12-16] MEDS ORDERED: NORMAL SALINE 1000 ML 1,000 ML IV ONE (20:07)
--- NOTE | 2017-12-16 20:07 | ER Document Report ---
ED Medical Screen (RME) - General Chief Complaint: Abdominal Pain Stated Complaint: ABDOMINAL PAIN Time Seen by Provider: 12/16/17 20:04 Notes: Patient states that he was seen here approximate 9 months ago for epigastric pain. At that time he was told he had pancreatic cancer. He states he followed up in [place] and they did a biopsy and told him that he did not have cancer. They did tell him that he had pancreatitis. He states since then he has had diarrhea and has to wake up 4-5 times each night to have a bowel movement. No recent antibiotics. No fever. He still has epigastric pain. He was seen by his primary care physician today who told him to come to the hospital and get a CT scan. TRAVEL OUTSIDE OF THE [place] IN LAST 30 DAYS: No - Related Data Allergies/Adverse Reactions: latex Allergy (Verified 12/16/17 19:05) Past Medical History - Social History Frequency of alcohol use: Occasional Drug Abuse: None - Past Medical History Cardiac Medical History: Reports: Hx Coronary Artery Disease, Hx Hypertension Denies: Hx Heart Attack Pulmonary Medical History: Reports: Hx COPD Denies: Hx Asthma, Hx Bronchitis, Hx Pneumonia, Hx Tuberculosis Neurological Medical History: Denies: Hx Cerebrovascular Accident, Hx Seizures Endocrine Medical History: Reports: Hx Diabetes Mellitus Type 2 Renal/ Medical History: Denies: Hx Peritoneal Dialysis GI Medical History: Reports: Hx Gastroesophageal Reflux Disease Musculoskeltal Medical History: Reports Hx Arthritis Psychiatric Medical History: Denies: Hx Depression Past Surgical History: Reports: Hx Abdominal Surgery - had here, colon, Hx Bowel Surgery, Hx Herniorrhaphy, Hx Testicular Surgery. Denies: Hx Pacemaker - Immunizations Immunizations up to date: Yes Hx Diphtheria, Pertussis, Tetanus Vaccination: Yes History of Influenza Vaccine for 08/2017 - 01/2018 Season: Yes Influenza Administration Date for 08/2017 - 01/2018 Season: 08/09/17 Physical Exam - Vital signs Vitals: Temp Pulse Resp BP Pulse Ox 98.6 F 56 L 16 154/77 H 96 12/16/17 19:19 12/16/17 19:19 12/16/17 19:19 12/16/17 19:19 12/16/17 19:19 Course - Vital Signs Vital signs: Temp Pulse Resp BP Pulse Ox 98.6 F 56 L 16 154/77 H 96 12/16/17 19:19 12/16/17 19:19 12/16/17 19:19 12/16/17 19:19 12/16/17 19:19
[2017-12-16 20:41] LABS: ABSOLUTE BASOPHILS # (AUTO) 0.1 10^3/uL (0.0-0.2); ABSOLUTE EOSINOPHILS # (AUTO) 0.1 10^3/uL (0.0-0.6); ABSOLUTE LYMPHOCYTES (AUTO) 1.8 10^3/uL (0.5-4.7); ABSOLUTE MONOCYTES (AUTO) 0.4 10^3/uL (0.1-1.4); ABSOLUTE NEUT (AUTO) 3.7 10^3/uL (1.7-8.2); BASOPHILS % (AUTO) 1.1 % (0-2); EOSINOPHILS % (AUTO) 1.2 % (0-6); HEMATOCRIT 35.4 % (37.9-51.0); HEMOGLOBIN 11.5 g/dL (13.5-17.0); LYMPHOCYTES % (AUTO) 30.1 % (13-45); MEAN CORPUSCULAR HEMOGLOBIN 27.7 pg (27.0-33.4); MEAN CORPUSCULAR HGB CONC 32.6 g/dL (32.0-36.0); MEAN CORPUSCULAR VOLUME 85 fl (80-97); MONOCYTES % (AUTO) 6.1 % (3-13); PLATELET COUNT 169 10^3/uL (150-450); RED BLOOD COUNT 4.16 10^6/uL (4.35-5.55); RED CELL DISTRIBUTION WIDTH 14.2 % (11.5-14.0); SEGMENTED NEUTROPHILS % (AUTO) 61.5 % (42-78); TOTAL CELLS COUNTED % (AUTO) 100 %
[2017-12-16 20:48] LABS: ALANINE AMINOTRANSFERASE 28 U/L (21-72); ALBUMIN 4.7 g/dL (3.5-5.0); ALKALINE PHOSPHATASE 59 U/L (38-126); ANION GAP 13 (5-19); ASPARTATE AMINO TRANSFERASE 28 U/L (17-59); BILIRUBIN,DIRECT 0.1 mg/dL (0.0-0.4); BILIRUBIN,TOTAL 0.3 mg/dL (0.2-1.3); BLOOD UREA NITROGEN 28 mg/dL (7-20); CALCIUM 9.7 mg/dL (8.4-10.2); CARBON DIOXIDE 21 mmol/L (22-30); CHLORIDE 108 mmol/L (98-107); GLUCOSE 86 mg/dL (75-110); LIPASE 93.9 U/L (23-300); POTASSIUM 3.9 mmol/L (3.6-5.0); SODIUM 142.4 mmol/L (137-145); TOTAL PROTEIN 6.7 g/dL (6.3-8.2)
[2017-12-16 20:57] LABS: APPEARANCE,URINE CLOUDY; BILIRUBIN,URINE NEGATIVE (NEGATIVE); COLOR,URINE YELLOW; GLUCOSE, URINE NEGATIVE (NEGATIVE); KETONES,URINE NEGATIVE (NEGATIVE); LEUKOCYTE ESTERASE,URINE NEGATIVE (NEGATIVE); NITRITE,URINE NEGATIVE (NEGATIVE); PROTEIN,URINE 100 mg/dL (NEGATIVE); URINE SPECIFIC GRAVITY 1.027; UROBILINOGEN,URINE NEGATIVE mg/dL (<2.0)
--- NOTE | 2017-12-17 00:27 | RADIOLOGY REPORT (SQ) ---
EXAM DESCRIPTION: CT ABDOMEN AND PELVIS WITH CONTRAST CLINICAL HISTORY: Diffuse abdominal pain. COMPARISON: 04/27/2017 TECHNIQUE: CT of the abdomen and pelvis are performed during IV bolus administration of 79 mL of Isovue-370. Delayed imaging also obtained. DLP: 701.12 mGycm FINDINGS: Abdomen: The liver has normal size and density. No intrahepatic mass or biliary dilatation. No calcified gallstones. The spleen and adrenal glands are unremarkable. There is a lobulated cystic mass arising from the head of the pancreas which is unchanged in configuration measuring 5.0 x 2.0 cm. The kidneys have normal size and contour without evidence of solid mass or hydronephrosis. Bosniak class I right renal cysts. Punctate nonobstructing bilateral renal calculi, the largest in the inferior pole of the left kidney measuring 0.6 cm. Aortoiliac atherosclerosis. IVC is unremarkable. The portal vein patent. The proximal visceral and renal arteries are patent. No free intraperitoneal air. The stomach and duodenum have normal course. Pelvis: Prior hernia repair noted. Urinary bladder is unremarkable. No free pelvic fluid or lymphadenopathy. No dilated loops of large or small bowel. Scattered diverticula of the colon. The visualized lung bases are clear. No destructive bone lesions identified. Mild degenerative change of the spine. Redemonstrated expansile nonaggressive left iliac lesion with internal calcified matrix measuring 2.9 x 4.3 cm. This is stable in appearance since at least March 2014. IMPRESSION: 1. No acute inflammatory or obstructive abnormality identified. 2. Redemonstrated lobulated cystic mass arising from the head of the pancreas measuring 5.0 x 2.0 cm. This is unchanged in appearance when compared with the previous study. Differential considerations include benign or malignant pancreatic cystic neoplasm, cystic adenocarcinoma, or pancreatic pseudocyst. 3. Diverticulosis without evidence of diverticulitis. 4. Nonobstructing left renal calculi. This exam was performed according to our departmental dose-optimization program, which includes automated exposure control, adjustment of the mA and/or kV according to patient size and/or use of iterative reconstruction technique.
--- NOTE | 2017-12-17 01:44 | ER Document Report ---
ED General - General Chief Complaint: Abdominal Pain Stated Complaint: ABDOMINAL PAIN Time Seen by Provider: 12/16/17 20:04 Notes: Patient is a 77-year-old male presents with complaint of upper abdominal pain is been there for over 3 weeks. No associated vomiting. Few episodes diarrhea. No blood in the stool. No fevers. He does have a history of pancreatic cancer. He says that he spits followed with Dr. Mane but has not followed back up with them. He says that he was informed by his doctor that he should come and get a CT scan performed being that he has ongoing pain. He says he otherwise feels well and has no further concerns at this time. He has not received any treatment for pancreatic cancer yet. He denies any radiation or chemotherapy. Denies any surgical interventions. TRAVEL OUTSIDE OF THE [place] IN LAST 30 DAYS: No - Related Data Allergies/Adverse Reactions: latex Allergy (Verified 12/16/17 19:05) Past Medical History - Social History Smoking Status: Never Smoker Frequency of alcohol use: Occasional Drug Abuse: None Family History: None Patient has suicidal ideation: No Patient has homicidal ideation: No - Past Medical History Cardiac Medical History: Reports: Hx Coronary Artery Disease, Hx Hypertension Denies: Hx Heart Attack Pulmonary Medical History: Reports: Hx COPD Denies: Hx Asthma, Hx Bronchitis, Hx Pneumonia, Hx Tuberculosis Neurological Medical History: Denies: Hx Cerebrovascular Accident, Hx Seizures Endocrine Medical History: Reports: Hx Diabetes Mellitus Type 2 Renal/ Medical History: Denies: Hx Peritoneal Dialysis GI Medical History: Reports: Hx Gastroesophageal Reflux Disease Musculoskeltal Medical History: Reports Hx Arthritis Psychiatric Medical History: Denies: Hx Depression Past Surgical History: Reports: Hx Abdominal Surgery - had here, colon, Hx Bowel Surgery, Hx Herniorrhaphy, Hx Testicular Surgery. Denies: Hx Pacemaker - Immunizations Immunizations up to date: Yes Hx Diphtheria, Pertussis, Tetanus Vaccination: Yes Hx Pneumococcal Vaccination: 11/09/08 Review of Systems - Review of Systems Notes: My Normal Review Basic REVIEW OF SYSTEMS: CONSTITUTIONAL : Denies fever, chills, or sweats. Denies recent illness. EENT: Denies eye, ear, throat, or mouth pain or symptoms. Denies nasal or sinus congestion. CARDIOVASCULAR: Denies chest pain. RESPIRATORY: Denies cough, cold, or chest congestion. Denies shortness of breath, difficulty breathing, or wheezing. GASTROINTESTINAL: Epigastric abdominal pain. Denies nausea, vomiting, or diarrhea. Denies constipation. Last BM: MUSCULOSKELETAL: Denies neck or back pain or joint pain or swelling. SKIN: Denies rash or skin lesions. NEUROLOGICAL: Denies altered mental status or loss of consciousness. Denies headache. Denies weakness or paralysis or loss of use of either side. Denies problems with gait or speech. Denies sensory or motor loss. ALL OTHER SYSTEMS REVIEWED AND NEGATIVE. Physical Exam - Vital signs Vitals: Temp Pulse Resp BP Pulse Ox 98.6 F 56 L 16 154/77 H 96 12/16/17 19:19 12/16/17 19:19 12/16/17 19:19 12/16/17 19:19 12/16/17 19:19 - Notes Notes: General Appearance: Well nourished, alert, cooperative, no acute distress, no obvious discomfort. Well-appearing. Vitals: reviewed, See vital signs table. Head: no swelling or tenderness to the head Eyes: PERRL, EOMI, Conjuctiva clear Mouth: No decreasd moisture Lungs: No wheezing, No rales, No rhonci, No accessory muscle use, good air exchange bilaterally. Heart: Normal rate, Regular rythm, No murmur, no rub Abdomen: Normal BS, soft, No rigidity, mild epigastric abdominal tenderness to palpation., No guarding, no rebound, no abdominal masses, no organomegaly Extremities: strength 5/5 in all extremities, good pulses in all extremities, no swelling or tenderness in the extremities, no edema. Skin: warm, dry, appropriate color, no rash Neuro: speech clear, oriented x 3, normal affect, responds appropriately to questions. Course - Re-evaluation Re-evalutation: 12/17/17 09:[address] scan shows a pancreatic mass which is unchanged comparison to his previous CT scan. Patient seems unsure about the exact follow-up plan in regards to this in regards to his treatment plan. I did call and speak with Dr. Regalado who says to have the patient call his office this morning and he will fit him in and help solidify good treatment plan for the patient. Patient' s labs otherwise are non-concerning. Patient looks clinically very well. I feel patient safe to be discharged home. Encouraged her return to ER if he is worsening pain, intractable vomiting, fevers, or feels unwell. Patient agrees with plan and will be discharged home. Dictation of this chart was performed using voice recognition software; therefore, there may be some unintended grammatical errors. - Vital Signs Vital signs: Temp Pulse Resp BP Pulse Ox 98.6 F 56 L 16 154/77 H 96 12/16/17 19:19 12/16/17 19:19 12/16/17 19:19 12/16/17 19:19 12/16/17 19:19 - Laboratory Result Diagrams: 12/16/17 20:15 12/16/17 20:15 Laboratory results interpreted by me: 12/16/17 12/16/17 12/16/17 20:15 20:15 20:15 RBC 4.16 L Hgb 11.5 L Hct 35.4 L RDW 14.2 H Chloride 108 H Carbon Dioxide 21 L BUN 28 H Creatinine 1.61 H Est GFR ( Amer) 51 L Est GFR (Non-Af Amer) 42 L Urine Protein 100 H Urine Ascorbic Acid 40 H Discharge - Discharge Clinical Impression: Pancreatic mass Hematuria Qualifiers: Hematuria type: unspecified type Qualified Code(s): R31.9 - Hematuria, unspecified Condition: Good Disposition: HOME, SELF-CARE Additional Instructions: Your CT scan shows a pancreatic mass or tumor. I spoke with your cancer doctor, Dr. Regalado, who wants you to call the office this morning so he can fit you in to his scheduled to see you and explain treatment options. please return to the ER if you have fevers, vomiting, difficulty urinating, or if you feel unwell. You also have some blood in your urine. Please talk to Dr. Regalado about this as well. Referrals: CARIDAD REGALADO MD [ACTIVE STAFF] - 12/17/17 (call office this morning and Dr. Regalado wants to evaluate you today.)
== END 2017-12-17 02:06 | disposition home or self-care (01) ==
LOC: ER 19:05
DX: K86.9 Disease of pancreas, unspecified (principal); R31.9 Hematuria, unspecified; R10.10 Upper abdominal pain, unspecified; R19.7 Diarrhea, unspecified; Z85.07 Personal history of malignant neoplasm of pancreas
CPT/HCPCS: 99284; 96360; 36415; 83690; 85025; 80053; 81001; 74177; J7030

== ENCOUNTER 2018-03-28 01:11 | Emergency (ER) | payer OTHER, MEDICARE ==
[2018-03-28 02:27] LABS: ABSOLUTE EOSINOPHILS # (AUTO) 0.1 10^3/uL (0.0-0.6); ABSOLUTE LYMPHOCYTES (AUTO) 1.6 10^3/uL (0.5-4.7); ABSOLUTE MONOCYTES (AUTO) 0.5 10^3/uL (0.1-1.4); ABSOLUTE NEUT (AUTO) 2.6 10^3/uL (1.7-8.2); EOSINOPHILS % (AUTO) 2.1 % (0-6); HEMOGLOBIN 10.7 g/dL (13.5-17.0); LYMPHOCYTES % (AUTO) 33.1 % (13-45); MEAN CORPUSCULAR HEMOGLOBIN 28.5 pg (27.0-33.4); MEAN CORPUSCULAR HGB CONC 33.3 g/dL (32.0-36.0); MEAN CORPUSCULAR VOLUME 86 fl (80-97); MONOCYTES % (AUTO) 9.8 % (3-13); PLATELET COUNT 146 10^3/uL (150-450); RED BLOOD COUNT 3.74 10^6/uL (4.35-5.55); RED CELL DISTRIBUTION WIDTH 14.6 % (11.5-14.0); TOTAL CELLS COUNTED % (AUTO) 100 %; WHITE BLOOD COUNT 4.9 10^3/uL (4.0-10.5)
[2018-03-28 02:55] LABS: ALANINE AMINOTRANSFERASE 34 U/L (21-72); ALBUMIN 3.8 g/dL (3.5-5.0); ALKALINE PHOSPHATASE 52 U/L (38-126); ANION GAP 12 (5-19); ASPARTATE AMINO TRANSFERASE 29 U/L (17-59); BLOOD UREA NITROGEN 28 mg/dL (7-20); CALCIUM 9.1 mg/dL (8.4-10.2); CARBON DIOXIDE 27 mmol/L (22-30); CHLORIDE 105 mmol/L (98-107); GLUCOSE 133 mg/dL (75-110); LIPASE 105.9 U/L (23-300); POTASSIUM 4.2 mmol/L (3.6-5.0); SODIUM 143.9 mmol/L (137-145); TOTAL PROTEIN 6.3 g/dL (6.3-8.2)
[2018-03-28 03:02] LABS: BILIRUBIN,TOTAL < 0.1 mg/dL (0.2-1.3)
--- NOTE | 2018-03-28 03:42 | RADIOLOGY REPORT (SQ) ---
EXAM DESCRIPTION: CT ABDOMEN AND PELVIS WITH CONTRAST CLINICAL HISTORY: Diffuse abdominal pain. COMPARISON: None Available. TECHNIQUE: CT of the abdomen and pelvis performed following IV administration of 70 mL of Isovue 300. Delayed images obtained. DLP: 776.95 mGycm FINDINGS: Lung Bases: The visualized lung bases are clear. Bones: No destructive bone lesions identified. Degenerative change of the spine. Possible left hip joint effusion. Abdomen: Liver: Liver has normal size and density. Mild dilatation of the intrahepatic bile ducts. The common bile duct measures 1.0 cm. Gallbladder: No calcified gallstones. Spleen, Pancreas, and Adrenal Glands: The spleen, pancreas, and adrenal glands are unremarkable. Kidneys: Nonobstructing inferior pole left renal calculus. Nonobstructing renal calculi. The interpolar right kidney there is an possible peripherally enhancing exophytic hypodense nodule measuring 1.3 x 0.8 cm. Vasculature: Aortoiliac atherosclerosis. IVC is unremarkable. The portal vein is patent. The proximal visceral and renal arteries are patent. Stomach: Postoperative change in the epigastric region. Other: No free intraperitoneal air. Postoperative change in the anterior abdominal wall. Pelvis: Bladder: Urinary bladder is unremarkable. Bowel: Scattered diverticula of the colon without pericolic fat stranding. Prior right hemicolectomy. Appendix: Surgically absent. Pelvis: Prostate is not enlarged. IMPRESSION: 1. Mild intrahepatic and extrahepatic biliary dilatation with the common bile duct measuring 1.0 cm. No definite obstructing abnormality identified. Correlation with MRCP may be helpful if there is concern for biliary obstruction. 2. There is a 1.3 cm possibly peripherally enhancing nodule in the interpolar right kidney. This is concerning for renal cell carcinoma. Correlation with multiphase MRI or CT of the abdomen recommended. 3. Diverticulosis without evidence of acute diverticulitis. 4. Nonobstructing left renal calculus. This exam was performed according to our departmental dose-optimization program, which includes automated exposure control, adjustment of the mA and/or kV according to patient size and/or use of iterative reconstruction technique.
--- NOTE | 2018-03-28 04:37 | ER Document Report ---
ED General - General Chief Complaint: Abdominal Pain Stated Complaint: ABDOMINAL PAIN Time Seen by Provider: 03/28/18 01:33 Mode of Arrival: Ambulatory Information source: Patient TRAVEL OUTSIDE OF THE [place] IN LAST 30 DAYS: No - HPI Patient complains to provider of: abdominal pain LUQ Onset: Just prior to arrival Onset/Duration: Gradual - had had for months but worse last few weeks Associated symptoms: None Exacerbated by: Denies Relieved by: Denies Similar symptoms previously: No Recently seen / treated by doctor: Yes - negative stress test last week Notes: Patient presents with left upper quadrant abdominal pain. He states that he has had it for months. He states he has a history of esophageal surgery in the distant past. He also states that he had some pancreatic issues he thought maybe it was cancer but it has resolved. He states he eats a good diet blueberries and such and so he thinks that the cancer may have gone away. Goes up with service control operator regarding his pancreas he is also seen a skilled nursing professional this week and had a negative stress test. Patient denies any nausea vomiting diarrhea fevers chest pain shortness of breath or any other concerns. - Related Data Allergies/Adverse Reactions: latex Allergy (Verified 12/16/17 19:05) Past Medical History - General Information source: Patient - Social History Smoking Status: Current Every Day Smoker Chew tobacco use (# tins/day): No Frequency of alcohol use: Occasional Drug Abuse: None Lives with: Family - Family History: None Patient has suicidal ideation: No Patient has homicidal ideation: No - Past Medical History Cardiac Medical History: Reports: Hx Coronary Artery Disease, Hx Hypertension Denies: Hx Heart Attack Pulmonary Medical History: Reports: Hx COPD Denies: Hx Asthma, Hx Bronchitis, Hx Pneumonia, Hx Tuberculosis Neurological Medical History: Denies: Hx Cerebrovascular Accident, Hx Seizures Endocrine Medical History: Reports: Hx Diabetes Mellitus Type 2 Renal/ Medical History: Reports: None. Denies: Hx Peritoneal Dialysis GI Medical History: Reports: Hx Gastroesophageal Reflux Disease, Other - perfed colon Musculoskeltal Medical History: Reports Hx Arthritis Psychiatric Medical History: Reports: None Denies: Hx Depression Past Surgical History: Reports: Hx Abdominal Surgery - had here, colon, Hx Bowel Surgery, Hx Herniorrhaphy, Hx Testicular Surgery. Denies: Hx Pacemaker - Immunizations Immunizations up to date: Yes Hx Diphtheria, Pertussis, Tetanus Vaccination: Yes Hx Pneumococcal Vaccination: 11/09/08 Review of Systems - Review of Systems Constitutional: No symptoms reported EENT: No symptoms reported Cardiovascular: No symptoms reported Respiratory: No symptoms reported Gastrointestinal: See HPI Genitourinary: No symptoms reported Male Genitourinary: No symptoms reported Musculoskeletal: No symptoms reported Skin: No symptoms reported Hematologic/Lymphatic: No symptoms reported Neurological/Psychological: No symptoms reported Physical Exam - Vital signs Vitals: Temp Pulse Resp BP Pulse Ox 98.0 F 60 16 109/64 98 03/28/18 01:16 03/28/18 01:16 03/28/18 01:16 03/28/18 01:16 03/28/18 01:16 - Notes Notes: PHYSICAL EXAMINATION: GENERAL: Well-appearing, well-nourished and in no acute distress. Sitting up in bed in no acute distress. HEAD: Atraumatic, normocephalic. EYES: Pupils equal round and reactive to light, extraocular movements intact, sclera anicteric, conjunctiva are normal. ENT: Nares patent, oropharynx clear without exudates. Moist mucous membranes. NECK: Normal range of motion, supple without lymphadenopathy LUNGS: Breath sounds clear to auscultation bilaterally and equal. No wheezes rales or rhonchi. HEART: Regular rate and rhythm ABDOMEN: Soft, nontender, nondistended abdomen. No guarding, no rebound. No masses appreciated. Patient has a mid abdominal vertical healed incisional scar Musculoskeletal: Normal range of motion, no pitting or edema. No cyanosis. NEUROLOGICAL: Cranial nerves grossly intact. Normal speech. Normal sensory, motor exams PSYCH: Normal mood, normal affect. SKIN: Warm, Dry, normal turgor, no rashes or lesions noted. Course - Re-evaluation Re-evalutation: 03/28/18 04:35 Labs- All tests 24 hr 03/28/18 03/28/18 01:34 01:34 WBC 4.9 RBC 3.74 L Hgb 10.7 L Hct 32.0 L MCV 86 MCH 28.5 MCHC 33.3 RDW 14.6 H Plt Count 146 L Seg Neutrophils % 54.0 Lymphocytes % 33.1 Monocytes % 9.8 Eosinophils % 2.1 Basophils % 1.0 Absolute Neutrophils 2.6 Absolute Lymphocytes 1.6 Absolute Monocytes 0.5 Absolute Eosinophils 0.1 Absolute Basophils 0.0 Sodium 143.9 Potassium 4.2 Chloride 105 Carbon Dioxide 27 Anion Gap 12 BUN 28 H Creatinine 1.51 H Est GFR ( Amer) 55 L Est GFR (Non-Af Amer) 45 L Glucose 133 H Calcium 9.1 Total Bilirubin < 0.1 L Direct Bilirubin Not Reportable Neonat Total Bilirubin Not Reportable Neonat Direct Bilirubin Not Reportable Neonat Indirect Bili Not Reportable AST 29 ALT 34 Alkaline Phosphatase 52 Total Protein 6.3 Albumin 3.8 Lipase 105.9 Abdomen/Pelvis CT 03/28/18 02:21 IMPRESSION: 1. Mild intrahepatic and extrahepatic biliary dilatation with the common bile duct measuring 1.0 cm. No definite obstructing abnormality identified. Correlation with MRCP may be helpful if there is concern for biliary obstruction. 2. There is a 1.3 cm possibly peripherally enhancing nodule in the interpolar right kidney. This is concerning for renal cell carcinoma. Correlation with multiphase MRI or CT of the abdomen recommended. 3. Diverticulosis without evidence of acute diverticulitis. 4. Nonobstructing left renal calculus. This exam was performed according to our departmental dose-optimization program, which includes automated exposure control, adjustment of the mA and/or kV according to patient size and/or use of iterative reconstruction technique. 03/28/18 04:44 I sat on the bed with the patient and reviewed the CAT scan findings. I had a copy of the impression of my hand and I underlined to the area regarding the right kidney mass and possible carcinoma or cancer. The patient is to take the copy with him to his doctor at the [facility]. He thinks he has an appointment next week. I also told him he had to follow-up with his service control operator or stomach doctors and he needed to show them the results to the CAT scan for that as well. Patient's to return to the emergency department if he has any concerns or worsening of symptoms. When I went into talk to him about the CAT scan patient was sleeping in bed in no acute distress. Patient is agreeable to the discharge plan. - Vital Signs Vital signs: Temp Pulse Resp BP Pulse Ox 98.0 F 60 16 109/64 98 03/28/18 01:16 03/28/18 01:16 03/28/18 01:16 03/28/18 01:16 03/28/18 01:16 - Laboratory Result Diagrams: 03/28/18 01:34 03/28/18 01:34 Laboratory results interpreted by me: 03/28/18 03/28/18 01:34 01:34 RBC 3.74 L Hgb 10.7 L Hct 32.0 L RDW 14.6 H Plt Count 146 L BUN 28 H Creatinine 1.51 H Est GFR ( Amer) 55 L Est GFR (Non-Af Amer) 45 L Glucose 133 H Total Bilirubin < 0.1 L - Diagnostic Test Radiology reviewed: Image reviewed, Reports reviewed Discharge - Discharge Clinical Impression: Abdominal pain, Right kidney mass Condition: Stable Disposition: HOME, SELF-CARE Instructions: Abdominal Pain ([facility]), Growth or Mass, Pending Workup ([facility]) Additional Instructions: You had an abnormal growth on your right kidney which is concerning. Cancer cannot be ruled out. Please follow-up the primary medical doctor as you will need further evaluations for this. Also follow-up with your service control operator regarding continued abdominal pain and abnormalities found on the CAT scan here today. Copy of the CT results was given to you. Please bring that to your doctor on the next visit.
[2018-03-28 05:32] VITALS: BP 141/77
== END 2018-03-28 05:32 | disposition home or self-care (01) ==
LOC: ER 01:11
DX: N28.89 Other specified disorders of kidney and ureter (principal); R10.12 Left upper quadrant pain; F17.200 Nicotine dependence, unspecified, uncomplicated; I25.10 Atherosclerotic heart disease of native coronary artery without angina pectoris; I10 Essential (primary) hypertension; J44.9 Chronic obstructive pulmonary disease, unspecified; E11.9 Type 2 diabetes mellitus without complications
CPT/HCPCS: 36415; 74177; 80053; 83690; 85025; 99284

== ENCOUNTER → 2018-05-10 | Outpatient (CLI) | payer MEDICARE, OTHER ==
--- NOTE | 2018-05-10 12:15 | RADIOLOGY REPORT (SQ) ---
EXAM DESCRIPTION: UGI SERIES COMPLETED DATE/TIME: 05/10/2018 8:46 am REASON FOR STUDY: GERD (K21.9) K21.9 GASTRO-ESOPHAGEAL REFLUX DISEASE WITHOUT ESOPHAGITIS COMPARISON: CT abdomen pelvis 03/28/2018, 12/16/2017, 04/27/2017 PET-CT 05/25/2017 TECHNIQUE: Under fluoroscopic guidance, patient ingested effervescent granules followed by thick and thin barium. Fluoroscopic spot images and routine radiographic images acquired and stored on PACS. 12 MM BARIUM TABLET GIVEN: Yes. No significant delay in passage. LIMITATIONS: None. FLUOROSCOPY TIME: FLUORO TIME: 1.8 minutes 32 digital images saved to PACS. FINDINGS: NEUROMUSCULAR COORDINATION OF SWALLOW: Normal. No aspiration. ESOPHAGEAL MOTILITY: Normal peristalsis. No esophageal spasm. ESOPHAGEAL MUCOSA: Normal mucosa without masses or ulceration. GASTRO-ESOPHAGEAL JUNCTION: There is a small hiatal hernia without Schatzki's ring of or distal esoph ageal stricture. Surgical laparoscopic tacks are present from a slipped Lulu fundoplication. Inte rmittent reflux to the mid thoracic esophagus. STOMACH: Normal without masses or ulcerations. GASTRIC OUTLET: No delay in emptying. Normal pylorus. DUODENAL BULB: Normal distention. No spasm or ulceration. DUODENUM: Mucosa normal. No extrinsic masses or malrotation. PROXIMAL SMALL BOWEL: Mucosa normal. No extrinsic masses or malrotation. There is brisk gastric emp tying and brisk transit through the small bowel. By 15 minutes after the upper GI, on the overhead f ilms there is opacification of the distal ileum and ascending colon which are unremarkable. NON-GI TRACT STRUCTURES: No significant finding. OTHER: No other significant finding. IMPRESSION: Slipped Lulu fundoplication No distal esophageal stricture. Gastroesophageal reflux to the mid 3rd of the esophagus Prompt gastric emptying. Rapid small-bowel transit time COMMENT: Quality ID 145: Final reports for procedures using fluoroscopy that document radiation exp osure indices, or exposure time and number of fluorographic images (if radiation exposure indices are not available) TECHNICAL DOCUMENTATION: JOB ID: [id number] [employer]- All Rights Reserved Reading location - IP/workstation name: [facility]
== END ==
LOC: RAD 07:35
PROVIDERS: ATTEND Surgery
DX: K21.9 Gastro-esophageal reflux disease without esophagitis (principal); K44.9 Diaphragmatic hernia without obstruction or gangrene
CPT/HCPCS: 74247

== ENCOUNTER 2019-03-09 22:03 | Observation (INO) | payer OTHER, MEDICARE ==
--- NOTE | 2019-03-09 23:49 | ER Document Report ---
ED Medical Screen (RME) - General Chief Complaint: Low Blood Sugar Stated Complaint: HYPOGLYCEMIA Time Seen by Provider: 03/09/19 23:37 Primary Care Provider: ANGELINA WALLACE MD [Primary Care Provider] - Follow up as needed TRAVEL OUTSIDE OF THE [place] IN LAST 30 DAYS: No - Related Data Allergies/Adverse Reactions: latex Allergy (Verified 12/16/17 19:05) Past Medical History - Past Medical History Cardiac Medical History: Reports: Hx Coronary Artery Disease, Hx Hypertension Denies: Hx Heart Attack Pulmonary Medical History: Reports: Hx COPD Denies: Hx Asthma, Hx Bronchitis, Hx Pneumonia, Hx Tuberculosis Neurological Medical History: Denies: Hx Cerebrovascular Accident, Hx Seizures Endocrine Medical History: Reports: Hx Diabetes Mellitus Type 2 Renal/ Medical History: Denies: Hx Peritoneal Dialysis GI Medical History: Reports: Hx Gastroesophageal Reflux Disease Musculoskeltal Medical History: Reports Hx Arthritis Psychiatric Medical History: Denies: Hx Depression Past Surgical History: Reports: Hx Abdominal Surgery - had here, colon, Hx Bowel Surgery, Hx Herniorrhaphy, Hx Testicular Surgery. Denies: Hx Pacemaker - Immunizations Immunizations up to date: Yes Hx Diphtheria, Pertussis, Tetanus Vaccination: Yes History of Influenza Vaccine for 08/2017 - 01/2018 Season: Yes Influenza Administration Date for 08/2017 - 01/2018 Season: 08/09/17 Physical Exam - Vital signs Vitals: Temp Pulse Resp BP Pulse Ox 96.8 F L 52 L 16 119/56 L 98 03/09/19 22:17 03/09/19 22:17 03/09/19 22:17 03/09/19 22:17 03/09/19 22:17 Course - Vital Signs Vital signs: Temp Pulse Resp BP Pulse Ox 96.8 F L 52 L 16 119/56 L 98 03/09/19 22:17 03/09/19 22:17 03/09/19 22:17 03/09/19 22:17 03/09/19 22:17 - Laboratory Laboratory results interpreted by me: 03/09/19 23:33 POC Glucose 119 H Doctor's Discharge - Discharge Referrals: ANGELINA WALLACE MD [Primary Care Provider] - Follow up as needed
[2019-03-09] MEDS ORDERED: MORPHINE SULFATE 10 MG/ML INJ IV ONE (23:50)
--- NOTE | 2019-03-10 00:11 | ER Document Report ---
ED Medical Screen (RME) - General Chief Complaint: Low Blood Sugar Stated Complaint: HYPOGLYCEMIA Time Seen by Provider: 03/09/19 23:37 Primary Care Provider: ANGELINA WALLACE MD [Primary Care Provider] - Follow up as needed Notes: Patient is a 78-year-old male who presents to the urgency department with a chief complaint of altered mental status and weakness. His states that when he was at home he was acting as if he was drunk, but he does not drink, nor did he drink tonight. He did have altered mental status and weakness. EMS was called and his blood sugar was 33. He was given 250 mL of D10. He states that he does feel better. Exam: Strong in all extremities, appears tired. I have greeted and performed a rapid initial assessment of this patient. A comprehensive ED assessment and evaluation of the patient, analysis of test results and completion of medical decision making process will be conducted by an additional ED providers. TRAVEL OUTSIDE OF THE [place] IN LAST 30 DAYS: No - Related Data Allergies/Adverse Reactions: latex Allergy (Verified 12/16/17 19:05) Past Medical History - Past Medical History Cardiac Medical History: Reports: Hx Coronary Artery Disease, Hx Hypertension Denies: Hx Heart Attack Pulmonary Medical History: Reports: Hx COPD Denies: Hx Asthma, Hx Bronchitis, Hx Pneumonia, Hx Tuberculosis Neurological Medical History: Denies: Hx Cerebrovascular Accident, Hx Seizures Endocrine Medical History: Reports: Hx Diabetes Mellitus Type 2 Renal/ Medical History: Denies: Hx Peritoneal Dialysis GI Medical History: Reports: Hx Gastroesophageal Reflux Disease Musculoskeltal Medical History: Reports Hx Arthritis Psychiatric Medical History: Denies: Hx Depression Past Surgical History: Reports: Hx Abdominal Surgery - had here, colon, Hx Bowel Surgery, Hx Herniorrhaphy, Hx Testicular Surgery. Denies: Hx Pacemaker - Immunizations Immunizations up to date: Yes Hx Diphtheria, Pertussis, Tetanus Vaccination: Yes History of Influenza Vaccine for 08/2017 - 01/2018 Season: Yes Influenza Administration Date for 08/2017 - 01/2018 Season: 08/09/17 Physical Exam - Vital signs Vitals: Temp Pulse Resp BP Pulse Ox 96.8 F L 52 L 16 119/56 L 98 03/09/19 22:17 03/09/19 22:17 03/09/19 22:17 03/09/19 22:17 03/09/19 22:17 Course - Vital Signs Vital signs: Temp Pulse Resp BP Pulse Ox 96.8 F L 52 L 16 119/56 L 98 03/09/19 22:17 03/09/19 22:17 03/09/19 22:17 03/09/19 22:17 03/09/19 22:17 - Laboratory Laboratory results interpreted by me: 03/09/19 23:33 POC Glucose 119 H Doctor's Discharge - Discharge Referrals: ANGELINA WALLACE MD [Primary Care Provider] - Follow up as needed
[2019-03-10 01:13] LABS: ABSOLUTE BASOPHILS # (AUTO) 0.1 10^3/uL (0.0-0.2); ABSOLUTE EOSINOPHILS # (AUTO) 0.1 10^3/uL (0.0-0.6); ABSOLUTE LYMPHOCYTES (AUTO) 0.9 10^3/uL (0.5-4.7); ABSOLUTE MONOCYTES (AUTO) 0.6 10^3/uL (0.1-1.4); ABSOLUTE NEUT (AUTO) 5.3 10^3/uL (1.7-8.2); EOSINOPHILS % (AUTO) 1.3 % (0-6); HEMATOCRIT 33.4 % (37.9-51.0); HEMOGLOBIN 11.1 g/dL (13.5-17.0); LYMPHOCYTES % (AUTO) 13.1 % (13-45); MEAN CORPUSCULAR HEMOGLOBIN 30.1 pg (27.0-33.4); MEAN CORPUSCULAR HGB CONC 33.2 g/dL (32.0-36.0); MEAN CORPUSCULAR VOLUME 91 fl (80-97); MONOCYTES % (AUTO) 8.3 % (3-13); PLATELET COUNT 126 10^3/uL (150-450); RED BLOOD COUNT 3.68 10^6/uL (4.35-5.55); RED CELL DISTRIBUTION WIDTH 15.1 % (11.5-14.0); SEGMENTED NEUTROPHILS % (AUTO) 76.3 % (42-78); TOTAL CELLS COUNTED % (AUTO) 100 %
[2019-03-10 02:18] LABS: ALANINE AMINOTRANSFERASE 94 U/L (21-72); ALBUMIN 3.5 g/dL (3.5-5.0); ALKALINE PHOSPHATASE 46 U/L (38-126); ANION GAP 7 (5-19); ASPARTATE AMINO TRANSFERASE 56 U/L (17-59); BILIRUBIN,DIRECT 0.3 mg/dL (0.0-0.4); BILIRUBIN,TOTAL 0.3 mg/dL (0.2-1.3); BLOOD UREA NITROGEN 28 mg/dL (7-20); CALCIUM 8.4 mg/dL (8.4-10.2); CARBON DIOXIDE 27 mmol/L (22-30); CHLORIDE 106 mmol/L (98-107); CREATINE KINASE 97 U/L (55-170); GLUCOSE 104 mg/dL (75-110); POTASSIUM 3.8 mmol/L (3.6-5.0); SODIUM 140.3 mmol/L (137-145)
--- NOTE | 2019-03-10 02:33 | RADIOLOGY REPORT (SQ) ---
EXAM DESCRIPTION: CT HEAD WITHOUT IV CONTRAST COMPLETED DATE/TME: 03/10/2019 00:06 CLINICAL HISTORY: 78 years, Male, AMS COMPARISON: 10/16/2014 CT brain TECHNIQUE: 189 Images stored on PACS. All CT scanners at this facility use dose modulation, iterative reconstruction, and/or weight based dosing when appropriate to reduce radiation dose to as low as reasonably achievable (ALARA). [facility]: Dose Right [facility]: CareDose [facility]: Dose Right [facility]: Teradose 4D [facility]: 2U LIMITATIONS: None. FINDINGS: The globes are intact. Mucosal thickening of the maxillary sinuses bilaterally. No displaced or depressed skull fracture. No intra or extra-axial hemorrhage. CT is limited for evaluation of acute infarct. No CT evidence for large or territorial acute infarct. No mass. No midline shift. Age-appropriate atrophy. Minor small vessel ischemic change IMPRESSION: Age-appropriate atrophy with minor small vessel ischemic change TECHNICAL DOCUMENTATION: Quality ID # [id number]: Final reports with documentation of one or more dose reduction techniques (e.g., Automated exposure control, adjustment of the mA and/or kV according to patient size, use of iterative reconstruction technique) copyright 2011 [employer]- All Rights Reserved
[2019-03-10 02:35] LABS: CREATINE KINASE MB 2.51 ng/mL (<4.55); TROPONIN I 0.028 ng/mL
--- NOTE | 2019-03-10 02:39 | RADIOLOGY REPORT (SQ) ---
EXAM DESCRIPTION: XR CHEST 1 VIEW COMPLETED DATE/TME: 03/10/2019 00:07 CLINICAL HISTORY: AMS COMPARISON: 04/27/2017 FINDINGS: Single frontal view of the chest. Atherosclerotic calcification tortuosity of thoracic aorta. Heart is not enlarged. Leads overlie the chest. No consolidation, pneumothorax, or pleural effusion. Reverse right shoulder arthroplasty. Upper abdominal soft tissues are unremarkable. IMPRESSION: 1. No acute pulmonary process identified.
--- NOTE | 2019-03-10 05:09 | ER Document Report ---
ED General - General Chief Complaint: Low Blood Sugar Stated Complaint: HYPOGLYCEMIA Time Seen by Provider: 03/09/19 23:37 Notes: Patient is a 78-year-old male who presents to the urgency department with a chief complaint of altered mental status and weakness. His states that when he was at home he was acting as if he was drunk, but he does not drink, nor did he drink tonight. He did have altered mental status and weakness. EMS was [facility] and his blood sugar was 33. He was given 250 mL of D10. He states that he does feel better. He denies any weakness at this time. He also states that he did have some chest pain when he takes deep breath in. He has problems with chronic diarrhea. States that he has had some trouble swallowing and sometimes feels like he is able to swallow well. 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 Patient states that he is not on any diabetic medications. Denies any fever, cough, congestion, shortness of breath, or dizziness. TRAVEL OUTSIDE OF THE [place] IN LAST 30 DAYS: No - Related Data Allergies/Adverse Reactions: latex Allergy (Verified 12/16/17 19:05) Past Medical History - General Information source: Patient - Social History Smoking Status: Unknown if Ever Smoked Chew tobacco use (# tins/day): No Drug Abuse: None Family History: None Patient has suicidal ideation: No Patient has homicidal ideation: No - Past Medical History Cardiac Medical History: Reports: Hx Coronary Artery Disease, Hx Hypertension Denies: Hx Heart Attack Pulmonary Medical History: Reports: Hx COPD Denies: Hx Asthma, Hx Bronchitis, Hx Pneumonia, Hx Tuberculosis Neurological Medical History: Denies: Hx Cerebrovascular Accident, Hx Seizures Endocrine Medical History: Reports: Hx Diabetes Mellitus Type 2 Renal/ Medical History: Denies: Hx Peritoneal Dialysis GI Medical History: Reports: Hx Gastroesophageal Reflux Disease Musculoskeletal Medical History: Reports Hx Arthritis Psychiatric Medical History: Denies: Hx Depression Past Surgical History: Reports: Hx Abdominal Surgery - had here, colon, Hx Bowel Surgery, Hx Herniorrhaphy, Hx Testicular Surgery. Denies: Hx Pacemaker - Immunizations Immunizations up to date: Yes Hx Diphtheria, Pertussis, Tetanus Vaccination: Yes Hx Pneumococcal Vaccination: 11/09/08 Review of Systems - Review of Systems Notes: REVIEW OF SYSTEMS: CONSTITUTIONAL : Denies recent illness. Denies recent unintentional weight loss. Denies fever, chills, or sweats. EENT: Denies eye, ear, throat, or mouth pain, discharge, or symptoms. Denies nasal or sinus congestion. CARDIOVASCULAR: Denies chest pain. RESPIRATORY: Denies shortness of breath, cough, congestion, difficulty breathing, or wheezing. GASTROINTESTINAL: Denies nausea, vomiting, and diarrhea. Denies abdominal pain. Denies constipation. GENITOURINARY: Denies difficulty urinating, burning, blood in urine, urgency or frequency. MUSCULOSKELETAL: Denies neck and back pain. Denies joint pain or swelling. SKIN: Denies rash, itchiness, or lesions HEMATOLOGIC : Denies easy bruising or bleeding. LYMPHATIC: Denies swollen, painful, enlarged glands. NEUROLOGICAL: See HPI PSYCHIATRIC: Denies stress, anxiety, alteration in sleep patterns, or depression. All other systems reviewed and negative. Physical Exam - Vital signs Vitals: Temp Pulse Resp BP Pulse Ox 96.8 F L 52 L 16 119/56 L 98 03/09/19 22:17 03/09/19 22:17 03/09/19 22:17 03/09/19 22:17 03/09/19 22:17 - Notes Notes: PHYSICAL EXAMINATION: GENERAL: Appears stated age, thin, no acute distress. HEAD: Normocephalic, atraumatic. EYES: PERRL, conjunctiva normal, all extraocular movements intact, sclera nonicteric ENT: Moist mucous membranes. NECK: Supple, no noticeable swelling, redness, rash. Normal range of motion. LUNGS: Equal breath sounds bilaterally and clear to auscultation. No wheezes rales or rhonchi. CARDIOVASCULAR: S1-S2, regular rate, regular rhythm. Radial pulses 2+, normal. ABDOMEN: Normoactive bowel sounds. Soft, nontender, no guarding, no rebound tenderness, and no masses palpated. EXTREMITIES: Normal strength and range of motion, no pitting or edema. No cyanosis. NEUROLOGICAL: Moves all extremities upon command. Strength 5/5 in all extremities. PSYCH: Normal mood, normal affect. SKIN: Warm, dry. No rash, lesions, ulcerations noted. Normal skin turgor. Course - Re-evaluation Re-evalutation: 03/10/19 03:45 Patient's initial troponin is 0.29. Another troponin will be drawn to evaluate if his troponin is increasing. Patient states that he does notice some pain at his ribs. States that it is sometimes painful when he takes a deep breath. His chest x-ray is normal, ruling out pneumonia. He is strong in all extremities. His CT does show some small vessel ischemia and atrophy, but no midline shift or large intracranial hemorrhage. 03/10/19 05:10 Patient second troponin is 0.34 urinalysis to rule out any urinary tract infection. Patient's lipase is normal. I am worried because the patient was hypoglycemic and does not have any cause of his hypoglycemia. There is a possibility that his chronic diarrhea may have some impact on hypoglycemia. 03/10/19 05:29 Patient's urinalysis is unremarkable. I spoke with Dr. Bruce, and the patient will be admitted under the hospitalist service. - Vital Signs Vital signs: Temp Pulse Resp BP Pulse Ox 96.8 F L 52 L 15 173/87 H 98 03/09/19 22:17 03/09/19 22:17 03/10/19 06:01 03/10/19 07:01 03/10/19 07:01 - Laboratory Result Diagrams: 03/10/19 00:55 03/10/19 00:55 Laboratory results interpreted by me: 03/09/19 03/10/19 03/10/19 23:33 00:32 00:55 RBC 3.68 L Hgb 11.1 L Hct 33.4 L RDW 15.1 H Plt Count 126 L BUN Est GFR (Non-Af Amer) POC Glucose 119 H 113 H ALT Total Protein Urine Ascorbic Acid 03/10/19 03/10/19 00:55 03:35 RBC Hgb Hct RDW Plt Count BUN 28 H Est GFR (Non-Af Amer) 59 L POC Glucose ALT 94 H Total Protein 6.0 L Urine Ascorbic Acid 40 H - EKG Interpretation by Me Additional EKG results interpreted by me: 03/10/19 Atrial fibrillation. Rate 60; QRS 170; QT 496; QTC 496 right bundle branch block noted. Multiple premature ventricular contractions noted. Discharge - Discharge Clinical Impression: Elevated troponin, Hypoglycemia Altered mental status Qualifiers: Altered mental status type: unspecified Qualified Code(s): R41.82 - Altered mental status, unspecified Condition: Stable Disposition: ADMITTED INPATIENT Admitting Provider: Teo (Hospitalist) Unit Admitted: Telemetry
[2019-03-10 05:20] LABS: APPEARANCE,URINE CLEAR; BILIRUBIN,URINE NEGATIVE (NEGATIVE); COLOR,URINE STRAW; GLUCOSE, URINE NEGATIVE (NEGATIVE); KETONES,URINE NEGATIVE (NEGATIVE); LEUKOCYTE ESTERASE,URINE NEGATIVE (NEGATIVE); NITRITE,URINE NEGATIVE (NEGATIVE); PROTEIN,URINE NEGATIVE (NEGATIVE); URINE SPECIFIC GRAVITY 1.009; UROBILINOGEN,URINE NEGATIVE mg/dL (<2.0)
[2019-03-10] MEDS ORDERED: (PENDING PHARMACY ID) (Ranitidine Hcl [Zantac 150 Mg Tablet] 150 MG) PO PRN (05:41)
[2019-03-10] MEDS ORDERED: TEMAZEPAM 7.5 MG CAPSULE PO PRN (05:53)
[2019-03-10] MEDS ORDERED: MAG HYDROX/AL HYDROX/SIMETH SUSP 30 ML UDCUP PO PRN (05:53)
[2019-03-10] MEDS ORDERED: ONDANSETRON HCL INJ/PF 4 MG/2 ML SDV IV PRN (05:53)
[2019-03-10] MEDS ORDERED: MAGNESIUM HYDROXIDE SUSP 30 ML UDCUP PO PRN (05:53)
[2019-03-10] MEDS ORDERED: NALBUPHINE HCL INJ 10 MG/1 ML AMPULE IV PRN (05:57)
[2019-03-10] MEDS ORDERED: ACETAMINOPHEN 325 MG TABLET PO PRN (05:57)
--- NOTE | 2019-03-10 06:58 | PDOC H&P ---
History of Present Illness Admission Date/PCP: 03/10/2019 [facility] Patient complains of: AMS History of Present Illness: KIERSTEN BEAN is a 78 year old male who presented by EMS to the emergency room with an acute history of altered mental status. Patient admits that he and his were at home and he suddenly began acting as if he were drunk (noted by his ) and to be incoherent. She called EMS and he was found to have a blood sugar of 33 which responded well to a 10% dextrose infusion. Upon his arrival in the emergency room he denied current symptoms but did indicate that he had a recurrence of his chronic sharp inspiratory pain in left subcostal area earlier and that he has chronic diarrhea and recently has experienced difficulty with swallowing. He additionally has longer-term problems with a nonoperable pancreatic mass and ill fitting dentures. In the emergency room he was found to have a minimal elevation of his troponin at 0.028 which increased to 0.034 over the course of 3 to 4 hours. His emergency room evaluation was otherwise unremarkable. Because of his sudden unexplained hypoglycemia and the related altered mental status patient will be placed in observation for further evaluation and treatment. Past Medical History Cardiac Medical History: Reports: Coronary Artery Disease, Hypertension Denies: Myocardial Infarction Pulmonary Medical History: Reports: Chronic Obstructive Pulmonary Disease (COPD) Denies: Asthma, Bronchitis, Pneumonia, Tuberculosis EENT Medical History: Reports: Other - Ill fitting dentures, difficulty swallowing Neurological Medical History: Denies: Hemorrhagic CVA, Ischemic CVA, Seizures Endocrine Medical History: Reports: Diabetes Mellitus Type 2 Denies: Diabetes Mellitus Type 1, Hyperthyroidism, Hypothyroidism, Obesity Renal/ Medical History: Denies: Chronic Kidney Disease, Nephrolithiasis Malignancy Medical History: Reports: None GI Medical History: Reports: Gastroesophageal Reflux Disease, Other - Pancreatic problem that is not operable, history of partial colectomy Denies: Cirrhosis, Hepatitis Musculoskeltal Medical History: Reports: Arthritis Denies: Gout Skin Medical History: Denies: Eczema, Psoriasis Psychiatric Medical History: Denies: Alcohol Dependency, Substance Abuse, Tobacco Dependency Traumatic Medical History: Reports: None Hematology: Denies: Anemia, Bleeding Tendencies Infectious Medical History: Reports: None Past Surgical History Past Surgical History: Reports: Herniorrhaphy, Other - Partial colectomy Social History Information Source: Patient Lives with: Spouse/Significant other Smoking Status: Former Smoker Frequency of Alcohol Use: None Hx Recreational Drug Use: Yes Drugs: Marijuana Hx Prescription Drug Abuse: No - Advance Directive Resuscitation Status: Full Code Surrogate healthcare decision maker:: Spouse Family History Family History: Hypertension Parental Family History Reviewed: Yes Children Family History Reviewed: No Sibling(s) Family History Reviewed.: Yes Medication/Allergy Home Medications: Lisinopril [Zestril] 5 mg PO DAILY 10/11/17 Nifedipine [Nifedipine ER] 60 mg PO DAILY 10/11/17 Ranitidine HCl [Zantac 150 mg Tablet] 150 mg PO BIDP PRN 10/11/17 Sucralfate [Carafate 1 gm Tablet] 1 gm PO QID 10/11/17 Hydralazine HCl [Apresoline 10 mg Tablet] 20 mg PO TID #90 tablet 10/12/17 Allergies/Adverse Reactions: latex Allergy (Verified 12/16/17 19:05) Review of Systems Constitutional: ABSENT: chills, fever(s) Eyes: ABSENT: visual disturbances, other - Eye pain Ears: ABSENT: hearing changes, other - Ear pain Nose, Mouth, and Throat: PRESENT: other - Ill fitting dentures. ABSENT: mouth pain, sore throat Cardiovascular: PRESENT: chest pain - With inspiration earlier last evening. ABSENT: dyspnea on exertion, edema, orthropnea, palpitations Respiratory: ABSENT: cough, dyspnea Gastrointestinal: PRESENT: as per HPI, abdominal pain - Left subcostal sharp pain with inspiration (chronic), diarrhea - Chronic diarrhea, dysphagia - Difficulty swallowing. ABSENT: constipation, nausea, vomiting Genitourinary: ABSENT: dysuria, hematuria Musculoskeletal: ABSENT: back pain, joint swelling, muscle weakness Integumentary: ABSENT: pruritus, rash Neurological: PRESENT: as per HPI, confusion - During his period of hypoglycemia, other - Incoherent during period of hypoglycemia. ABSENT: convulsions, focal weakness, memory loss, syncope Psychiatric: ABSENT: anxiety, depression Endocrine: ABSENT: cold intolerance, heat intolerance Hematologic/Lymphatic: ABSENT: easy bleeding, easy bruising Physical Exam Vital Signs: Temp Pulse Resp BP Pulse Ox 96.8 F L 52 L 13 146/69 H 98 03/09/19 22:17 03/09/19 22:17 03/10/19 05:01 03/10/19 05:01 03/10/19 05:01 Intake & Output 03/08/19 03/09/1919 23:59 23:59 23:59 Weight 70.5 kg General appearance: PRESENT: no acute distress, cooperative Head exam: PRESENT: atraumatic, normocephalic Eye exam: ABSENT: conjunctival injection, scleral icterus Ear exam: PRESENT: normal external ear exam. ABSENT: bleeding, drainage Mouth exam: PRESENT: dry mucosa, neck supple Neck exam: ABSENT: thyromegaly, tracheal deviation Respiratory exam: PRESENT: clear to auscultation venessa, symmetrical, unlabored Cardiovascular exam: PRESENT: RRR. ABSENT: clicks, gallop, rubs Pulses: PRESENT: normal radial pulses, normal dorsalis pedis pul Vascular exam: PRESENT: normal capillary refill. ABSENT: pallor GI/Abdominal exam: PRESENT: normal bowel sounds, soft, tenderness - Left subcostal region with mild tenderness reproduces pain mentioned in HPI Rectal exam: PRESENT: deferred Extremities exam: ABSENT: joint swelling, pedal edema Musculoskeletal exam: PRESENT: full ROM, normal inspection Neurological exam: PRESENT: alert, oriented to person, oriented to place, oriented to time, oriented to situation, CN II-XII grossly intact. ABSENT: motor sensory deficit Psychiatric exam: PRESENT: appropriate affect, normal mood Skin exam: PRESENT: dry, intact, warm. ABSENT: jaundice, rash, urticaria Results Laboratory Results: 03/10/19 00:55 03/10/19 00:55 03/10/19 03/10/19 03/10/19 00:55 00:55 00:55 WBC 7.0 RBC 3.68 L Hgb 11.1 L Hct 33.4 L MCV 91 MCH 30.1 MCHC 33.2 RDW 15.1 H Plt Count 126 L Seg Neutrophils % 76.3 Lymphocytes % 13.1 Monocytes % 8.3 Eosinophils % 1.3 Basophils % 1.0 Absolute Neutrophils 5.3 Absolute Lymphocytes 0.9 Absolute Monocytes 0.6 Absolute Eosinophils 0.1 Absolute Basophils 0.1 Sodium 140.3 Potassium 3.8 Chloride 106 Carbon Dioxide 27 Anion Gap 7 BUN 28 H Creatinine 1.20 Est GFR ( Amer) > 60 Est GFR (Non-Af Amer) 59 L Glucose 104 Calcium 8.4 Total Bilirubin 0.3 AST 56 ALT 94 H Alkaline Phosphatase 46 Total Protein 6.0 L Albumin 3.5 Lipase 91.5 Urine Color Urine Appearance Urine pH Ur Specific [place] Urine Protein Urine Glucose (UA) Urine Ketones Urine Blood Urine Nitrite Ur Leukocyte Esterase Urine WBC (Auto) Urine RBC (Auto) 03/10/19 03:35 WBC RBC Hgb Hct MCV MCH MCHC RDW Plt Count Seg Neutrophils % Lymphocytes % Monocytes % Eosinophils % Basophils % Absolute Neutrophils Absolute Lymphocytes Absolute Monocytes Absolute Eosinophils Absolute Basophils Sodium Potassium Chloride Carbon Dioxide Anion Gap BUN Creatinine Est GFR ( Amer) Est GFR (Non-Af Amer) Glucose Calcium Total Bilirubin AST ALT Alkaline Phosphatase Total Protein Albumin Lipase Urine Color STRAW Urine Appearance CLEAR Urine pH 6.0 Ur Specific [place] 1.009 Urine Protein NEGATIVE Urine Glucose (UA) NEGATIVE Urine Ketones NEGATIVE Urine Blood NEGATIVE Urine Nitrite NEGATIVE Ur Leukocyte Esterase NEGATIVE Urine WBC (Auto) 0 Urine RBC (Auto) 4 03/10/19 03/10/19 03/10/19 00:55 00:55 03:35 Creatine Kinase 97 CK-MB (CK-2) 2.51 Troponin I 0.028 0.034 Impressions: Head CT 03/10/19 00:06 IMPRESSION: Age-appropriate atrophy with minor small vessel ischemic change TECHNICAL DOCUMENTATION: Quality ID # [id number]: Final reports with documentation of one or more dose reduction techniques (e.g., Automated exposure control, adjustment of the mA and/or kV according to patient size, use of iterative reconstruction technique) copyright 2011 [employer]- All Rights Reserved Chest X-Ray 03/10/19 00:07 IMPRESSION: 1. No acute pulmonary process identified. Assessment and Plan - Diagnosis (1) Acute metabolic encephalopathy due to hypoglycemia Is this a current diagnosis for this admission?: Yes Plan: Patient will be observed closely for any recurrence of his altered mental status. He will have appropriate laboratory evaluations performed on an ongoing basis including a CBC, metabolic profile and magnesium level. Thyroid studies will be obtained as will a hemoglobin A1c. (2) Dysphagia Qualifiers: Dysphagia type: unspecified Qualified Code(s): R13.10 - Dysphagia, unspecified Is this a current diagnosis for this admission?: Yes Plan: Patient will be seen by speech therapy for evaluation of his dysphagia. Further diagnostic studies will be ordered based on the evaluation of speech therapy. (3) Chronic diarrhea Is this a current diagnosis for this admission?: Yes Plan: Patient will be evaluated for chronic diarrhea initially with laboratory evaluation. Consideration may be given towards a colonoscopy which could be done either during his hospital observation or as an outpatient. (4) Hypertension Qualifiers: Hypertension type: essential hypertension Qualified Code(s): I10 - Essential (primary) hypertension Is this a current diagnosis for this admission?: Yes Plan: Patient will continue with his usual antihypertensive agents once his medical reconciliation has been completed. - Time Time Spent with patient: 15-24 minutes Medications reviewed and adjusted accordingly: Yes Anticipated discharge: Home - Inpatient Certification Based on my medical assessment, after consideration of the patient's c omorbidities, presenting symptoms, or acuity I expect that the services needed warrant INPATIENT care.: No I certify that my determination is in accordance with my understanding of Medicare's requirements for reasonable and necessary INPATIENT services [42 CFR 412.3e].: No Medical Necessity: Need Close Monitoring Due to Risk of Patient Decompensation, Risk of Complication if Not Cared For in Hospital
[2019-03-10] MEDS: HEPARIN SOD (PORCINE) 5,000 UNIT/ML 1 ML SYRINGE SUBCUT SCH ×3 (07:19→22:03)
[2019-03-10 08:10] LABS: CREATINE KINASE MB 2.55 ng/mL (<4.55)
[2019-03-10 08:20] LABS: TROPONIN I 0.04 ng/mL
--- NOTE | 2019-03-10 09:32 | EKG REPORT ---
SEVERITY:- ABNORMAL ECG - SINUS RHYTHM VENTRICULAR TRIGEMINY RIGHT BUNDLE BRANCH BLOCK : Confirmed by: Cheng Brumfield 10-Mar-2019 09:31:30
[2019-03-10] MEDS: DOCUSATE SODIUM 100 MG CAPSULE PO SCH ×2 (09:37→17:35)
[2019-03-10] MEDS: SUCRALFATE 1 GM TABLET PO SCH ×4 (09:37→22:14)
[2019-03-10] MEDS: LISINOPRIL 10 MG TABLET PO SCH (09:37)
[2019-03-10] MEDS: HYDRALAZINE HCL 10 MG TABLET PO SCH ×3 (09:37→17:42)
[2019-03-10] MEDS: FAMOTIDINE 20 MG TABLET PO SCH ×2 (09:37→22:14)
[2019-03-10] MEDS: NIFEDIPINE 30 MG TAB.ER.24 PO SCH (09:38)
[2019-03-10 15:29] LABS: CREATINE KINASE MB 1.8 ng/mL (<4.55)
[2019-03-10 15:34] LABS: TROPONIN I 0.036 ng/mL
[2019-03-10 20:25] LABS: CREATINE KINASE MB 1.53 ng/mL (<4.55); TROPONIN I 0.037 ng/mL
[2019-03-11] MEDS: HEPARIN SOD (PORCINE) 5,000 UNIT/ML 1 ML SYRINGE SUBCUT SCH (05:30)
[2019-03-11 08:47] LABS: HEMATOCRIT 34.3 % (37.9-51.0); HEMOGLOBIN 11.2 g/dL (13.5-17.0); MEAN CORPUSCULAR HEMOGLOBIN 29.7 pg (27.0-33.4); MEAN CORPUSCULAR HGB CONC 32.7 g/dL (32.0-36.0); MEAN CORPUSCULAR VOLUME 91 fl (80-97); PLATELET COUNT 150 10^3/uL (150-450); RED BLOOD COUNT 3.78 10^6/uL (4.35-5.55); RED CELL DISTRIBUTION WIDTH 14.6 % (11.5-14.0); WHITE BLOOD COUNT 4.5 10^3/uL (4.0-10.5)
[2019-03-11] MEDS: DOCUSATE SODIUM 100 MG CAPSULE PO SCH (09:11)
[2019-03-11] MEDS: FAMOTIDINE 20 MG TABLET PO SCH (09:11)
[2019-03-11] MEDS: LISINOPRIL 10 MG TABLET PO SCH (09:11)
[2019-03-11] MEDS: SUCRALFATE 1 GM TABLET PO SCH (09:11)
[2019-03-11] MEDS: NIFEDIPINE 30 MG TAB.ER.24 PO SCH (09:11)
[2019-03-11 09:12] LABS: ANION GAP 11 (5-19); BLOOD UREA NITROGEN 23 mg/dL (7-20); CALCIUM 8.8 mg/dL (8.4-10.2); CARBON DIOXIDE 24 mmol/L (22-30); CHLORIDE 102 mmol/L (98-107); CHOLESTEROL 82.62 mg/dL (0-200); GLUCOSE 268 mg/dL (75-110); POTASSIUM 4.2 mmol/L (3.6-5.0); SODIUM 137.2 mmol/L (137-145); TRIGLYCERIDES 58 mg/dL (<150)
[2019-03-11] MEDS: HYDRALAZINE HCL 10 MG TABLET PO SCH (09:13)
[2019-03-11 09:32] LABS: DIRECT LDL 41 mg/dL (<100)
[2019-03-11 12:13] VITALS: BP 130/53
--- NOTE | 2019-03-11 15:38 | PDOC DISCHARGE SUMMARY ---
General - Admit/Disc Date/PCP Admission Date/Primary Care Provider: 03/10/19 06:05 Discharge Date: 03/11/19 - Discharge Diagnosis (1) Acute metabolic encephalopathy due to hypoglycemia Is this a current diagnosis for this admission?: Yes Summary: The patient presented to the hospital with a fingerstick glucose of 33. He was quite confused. In fact he states that during the initial episode at home he does not remember much. With his glucose back in the normal range the enceph alopathy has resolved. (2) Hypoglycemia Is this a current diagnosis for this admission?: Yes Summary: He admits that he has been having some episodes of low blood glucose. He has a pancreatic mass that is being followed for 2 years now. He is on Pancrease enzymes for presumed pancreatic insufficiency. It is not clear why his sugar dropped. His family states that he does not eat regularly. I strongly suggested that they purchase a glucometer. If he is feeling poorly the first thing he said he was check his glucose. He should keep glucose tablets, gel or honey sticks in the car so that if he is feeling poorly he can take 1 of those. Being that he is not diabetic, hyperglycemia is not a significant concern. I also suggested that he see an vocational counselor. Certain studies can be done to see if he has any type of insulinoma or an exaggerated response of insulin to diet. The dietitian is going to see the patient before he leaves for strategy on foods to eat not only for the pancreatic insufficiency but for the hypoglycemia. (3) Pancreatic insufficiency Is this a current diagnosis for this admission?: Yes Summary: The patient has a mass at the head of the pancreas that is being followed conservatively. He is too high risk for a Whipple procedure. He has exhibited weight loss and experienced weakness in his extremities, fatigue and loss of subcutaneous fat. I explained how pancreatic enzymes work and that the dose can be adjusted based on the patient's response. I also explained that it was important to have certain dietary guidelines to help with his chronic diarrhea. I suggested that he see an vocational counselor after discharge. - Additional Information Resuscitation Status: Full Code Home Medications: Amlodipine Besylate [Norvasc 10 mg Tablet] 10 mg PO DAILY 03/10/19 Atorvastatin Calcium [Lipitor 80 mg Tablet] 40 mg PO QHS 03/10/19 Carvedilol [Coreg 25 mg Tablet] 12.5 mg PO Q12 03/10/19 Cholecalciferol (Vitamin D3) [Vitamin D3] 1,000 unit PO DAILY 03/10/19 Cyanocobalamin (Vitamin B-12) [Vitamin B-12 1000 mcg Tablet] 1,000 mcg PO DAILY 03/10/19 Diclofenac Sodium [Voltaren] 2 gm TOP QIDP PRN 03/10/19 Isosorbide Mononitrate [Imdur 30 mg Tablet.er] 30 mg PO DAILY 03/10/19 Lactobacillus Acidophilus [Acidophilus Lactobacilli] 1 cap PO BID 03/10/19 Lipase/Protease/Amylase [Judson Beltran 36,000 Units Capsule] 1 cap PO BIDP PRN 03/10/19 Lipase/Protease/Amylase [Judson Beltran 36,000 Units Capsule] 2 cap PO MEALS 03/10/19 Lisinopril [Prinivil 40 mg Tablet] 40 mg PO DAILY 03/10/19 Loratadine [Claritin 10 mg Tablet] 10 mg PO DAILYP PRN 03/10/19 Melatonin 10 mg PO QHS 03/10/19 Multivitamin [Daily Multiple Vitamin] 1 tab PO DAILY 03/10/19 [place]-3 Fatty Acids/Fish Oil [Fish Oil 1,000 mg Capsule] 2 cap PO BID 03/10/19 Ranitidine HCl [Zantac 150 mg Tablet] 150 mg PO BIDP PRN 03/10/19 Trazodone HCl [Desyrel 50 mg Tablet] 50 mg PO HSP PRN 03/10/19 Nifedipine [Procardia XL 30 mg Tablet] 60 mg PO DAILY tab.er.24 03/11/19 Sucralfate [Carafate 1 gm Tablet] 1 gm PO QID tablet 03/11/19 History of Present Illness Patient complains of: Altered mental status with low glucose History of Present Illness: KIERSTEN BEAN is a 78 year old male with medical history of coronary disease, hypertension, COPD chronic diarrhea. He is being followed for a mass at the head of the pancreas. He presented to the emergency department with a fingerstick glucose of 33. He had altered mental status that improved with glucose supplement. He was admitted to the hospital service for observation. Hospital Course Hospital Course: Patient sugars improved and more stable this morning. He will be discharged home. See details above. Physical Exam Vital Signs: Temp Pulse Resp BP Pulse Ox 98.2 F 64 16 139/64 H 97 03/11/19 07:24 03/11/19 07:24 03/11/19 07:24 03/11/19 07:24 03/11/19 07:24 Intake & Output 03/10/19 03/11/19 03/12/19 06:59 06:59 06:59 Intake Total 192 Balance 192 Weight 70.5 kg 67.7 kg General appearance: PRESENT: cooperative, mild distress, thin Head exam: PRESENT: normocephalic Respiratory exam: PRESENT: clear to auscultation venessa, symmetrical, unlabored. ABSENT: rales, rhonchi, wheezes Cardiovascular exam: PRESENT: RRR, +S1, +S2 GI/Abdominal exam: PRESENT: normal bowel sounds, soft, tenderness. ABSENT: distended Rectal exam: PRESENT: deferred Gentrourinary exam: ABSENT: indwelling catheter Extremities exam: PRESENT: other - Decreased muscle mass. ABSENT: pedal edema Neurological exam: PRESENT: alert, awake, oriented to person, oriented to place, oriented to time, oriented to situation, CN II-XII grossly intact Psychiatric exam: PRESENT: flat affect. ABSENT: agitated, anxious Focused psych exam: ABSENT: delusional, restlessness Results Laboratory Results: 03/11/19 08:10 03/11/19 08:10 03/11/19 03/11/19 03/11/19 08:10 08:10 08:10 WBC 4.5 RBC 3.78 L Hgb 11.2 L Hct 34.3 L MCV 91 MCH 29.7 MCHC 32.7 RDW 14.6 H Plt Count 150 Sodium 137.2 Potassium 4.2 Chloride 102 Carbon Dioxide 24 Anion Gap 11 BUN 23 H Creatinine 1.17 Est GFR ( Amer) > 60 Est GFR (Non-Af Amer) > 60 Glucose 268 H Calcium 8.8 Magnesium 2.0 Triglycerides 58 Cholesterol 82.62 LDL Cholesterol Direct 41 VLDL Cholesterol 12.0 HDL Cholesterol 48 TSH 1.36 03/10/19 03/10/19 03/10/19 00:55 00:55 03:35 Creatine Kinase 97 CK-MB (CK-2) 2.51 Troponin I 0.028 0.034 03/10/19 03/10/19 03/10/19 07:20 07:20 14:40 Creatine Kinase 92 75 CK-MB (CK-2) 2.55 Troponin I 0.040 03/10/19 03/10/19 03/10/19 14:40 19:27 19:27 Creatine Kinase 61 CK-MB (CK-2) 1.80 1.53 Troponin I 0.036 0.037 Impressions: Head CT 03/10/19 00:06 IMPRESSION: Age-appropriate atrophy with minor small vessel ischemic change TECHNICAL DOCUMENTATION: Quality ID # 436: Final reports with documentation of one or more dose reduction techniques (e.g., Automated exposure control, adjustment of the mA and/or kV according to patient size, use of iterative reconstruction technique) copyright 2011 [email or web address]- All Rights Reserved Chest X-Ray 03/10/19 00:07 IMPRESSION: 1. No acute pulmonary process identified. Qualifiers - * PATIENT BEING DISCHARGED WITH ANY OF THE FOLLOWING DIAGNOSIS: No Acute Heart Failure Is this a Heart Failure Patient?: No Plan Time Spent: Greater than 30 Minutes
== END 2019-03-11 12:45 | disposition home or self-care (01) ==
LOC: ER 22:03 → EH 03-10 06:05 → 4W 03-10 09:12
PROVIDERS: ADMIT Emergency Medicine; ATTEND Emergency Medicine
DX: G93.41 Metabolic encephalopathy (principal); E16.1 Other hypoglycemia; K86.89 Other specified diseases of pancreas; R63.4 Abnormal weight loss; R53.1 Weakness; K52.9 Noninfective gastroenteritis and colitis, unspecified; R13.10 Dysphagia, unspecified; R07.1 Chest pain on breathing; I25.10 Atherosclerotic heart disease of native coronary artery without angina pectoris; I10 Essential (primary) hypertension; K21.9 Gastro-esophageal reflux disease without esophagitis; R10.9 Unspecified abdominal pain; R07.81 Pleurodynia; I67.82 Cerebral ischemia; G31.9 Degenerative disease of nervous system, unspecified; R79.89 Other specified abnormal findings of blood chemistry; I48.91 Unspecified atrial fibrillation; I45.10 Unspecified right bundle-branch block; I49.3 Ventricular premature depolarization; Z79.899 Other long term (current) drug therapy; Z97.2 Presence of dental prosthetic device (complete) (partial); Z90.49 Acquired absence of other specified parts of digestive tract; Z87.891 Personal history of nicotine dependence; Z82.49 Family history of ischemic heart disease and other diseases of the circulatory system; Z87.19 Personal history of other diseases of the digestive system; Z98.890 Other specified postprocedural states
CPT/HCPCS: 93005; 99285; 36415 ×2; 82553; 82962 ×3; 82550; 83690; 83735; 84443; 85025; 85027; 80048; 80053; 81001; 84484; 83036; 80061; 71045; 70450; 93010; 92610; G0378 ×3; J3490 ×4

== ENCOUNTER → 2019-04-07 | Outpatient (CLI) | payer MEDICARE, OTHER ==
--- NOTE | 2019-04-07 14:03 | RADIOLOGY REPORT (SQ) ---
EXAM DESCRIPTION: NM GASTRIC EMPTYING STUDY COMPLETED DATE/TIME: 04/07/2019 1:22 pm REASON FOR STUDY: R10.13 EPIGASTRIC PAIN R10.13 EPIGASTRIC PAIN COMPARISON: None. RADIONUCLIDE AND DOSE: 2 millicuries Tc-99m Sulfur Colloid. A wide variety of solid foods have been used. The route of agent administration: Oral. TECHNIQUE: 1 minute serial static imaging performed at time of meal, 1 hour, 2 hours, 3 hours, and 4 hours as needed. Once stomach reaches 90% emptying, the test is complete. Image intensity values pl otted with respect to time with linear regression algorithm. LIMITATIONS: None. FINDINGS: Patient was observed for 4 hours. Immediate post meal serves as baseline. Gastric emptying at 60 minutes was 0.25%. Gastric emptying at 90 minutes was 6.6% Gastric emptying at 120 minutes was 11.4%. Gastric emptying at 180 minutes was 21.75%. Gastric emptying at 240 minutes was 6.4% Normal values: 60 minutes: 30-90% retained. If less than 30%, abnormally rapid emptying. If greater than 90%, del ayed gastric emptying. 120 minutes: <60% retained. If greater than 60%, delayed gastric emptying. 240 minutes: <10% retained. If greater than 10%, delayed gastric emptying. IMPRESSION: Delayed gastric emptying. TECHNICAL DOCUMENTATION: JOB ID: [id number] [employer] All Rights Reserved rev-03/26 Reading location - IP/workstation name: [email or web address]
== END ==
LOC: RAD 07:45
PROVIDERS: ATTEND Internal Medicine Gastroenterology
DX: R10.13 Epigastric pain (principal)
CPT/HCPCS: 78264; A9541

== ENCOUNTER 2019-11-07 02:22 | Emergency (ER) | payer OTHER, MEDICARE ==
[2019-11-07] MEDS ORDERED: ACETAMINOPHEN 325 MG TABLET PO ONE (02:34)
--- NOTE | 2019-11-07 03:30 | RADIOLOGY REPORT (SQ) ---
EXAM DESCRIPTION: XR HAND 3 OR MORE VIEWS COMPLETED DATE/TME: 11/07/2019 02:33 CLINICAL HISTORY: 79 years, Male, severe pain COMPARISON: None. NUMBER OF VIEWS: 3 TECHNIQUE: 3 view left hand LIMITATIONS: None. FINDINGS: Osteopenia. Flexed position of the second digit. Negative for acute fracture or dislocation. Degenerative changes throughout the hand and wrist. Mild diffuse soft tissue swelling IMPRESSION: Osteopenia with advanced degenerative change. No acute fracture copyright 2010 [employer]- All Rights Reserved
--- NOTE | 2019-11-07 03:33 | RADIOLOGY REPORT (SQ) ---
EXAM: X-ray shoulder two or more views CLINICAL DATA: 79-year-old male with right shoulder pain TECHNICAL DATA: Three x-ray views of the right shoulder were performed on 11/07/2019 at 3:07 AM. COMPARISONS: Prior two-view chest performed on 04/27/2017 FINDINGS: There are remote postsurgical changes of the right shoulder consistent with a total right shoulder arthroplasty. The prosthetic components appear to be grossly satisfactory in position and alignment. There is no evidence of acute fracture or dislocation. There are mild degenerative changes of the acromioclavicular joint. No pathologic lytic or sclerotic bone lesions are seen. Bone mineralization is slightly diminished.. No focal soft tissue abnormalities are identified. IMPRESSION: 1. Total right shoulder arthroplasty without definite hardware failure or acute osseous abnormality. 2. Mild degenerative changes as described above.
[2019-11-07 05:04] VITALS: BP 118/77
[2019-11-07] MEDS ORDERED: HYDROCODONE/ACETAMINOPHEN 5-325 MG (6 TAB/ER DISP) PO PRN (06:20)
--- NOTE | 2019-11-07 06:22 | ER Document Report ---
ED Extremity Problem, Upper - General Chief Complaint: Hand Pain Stated Complaint: HAND, SHOULDER PAIN Time Seen by Provider: 11/07/19 06:15 Mode of Arrival: Ambulatory Information source: Patient Notes: 79-year-old male presented to ED for complaint of left hand and right shoulder pain that started yesterday. He states he knows he has arthritis and he knows it is bad but this pain is worse than normal. He states he has been using a topical arthritic medicine and it has helped some but he is still having pain. Patient denies any new injuries that he knows of. He does have a history of surgery to the right shoulder. He also has multiple other medical problems. TRAVEL OUTSIDE OF THE [place] IN LAST 30 DAYS: No - HPI Patient complains to provider of: Right - Right shoulder pain arthritis, Left - Left hand pain and arthritis Onset: Other - Prisca were started yesterday Recent injury: No Quality of pain: Sharp Severity of pain: Persistent Pain Level: 5 Associated symptoms: None Exacerbated by: Movement Relieved by: Rest, Positioning Similar symptoms previously: Yes Recently seen / treated by doctor: No - Related Data Allergies/Adverse Reactions: latex Allergy (Verified 12/16/17 19:05) Home Medications: herbs Past Medical History - General Information source: Patient - Social History Smoking Status: Never Smoker Chew tobacco use (# tins/day): No Frequency of alcohol use: Rare Drug Abuse: None Lives with: Family Family History: None, Reviewed & Not Pertinent Patient has suicidal ideation: No Patient has homicidal ideation: No - Past Medical History Cardiac Medical History: Reports: Hx Coronary Artery Disease, Hx Hypertension, Other Pulmonary Medical History: Reports: Hx COPD EENT Medical History: Reports: None Neurological Medical History: Reports: None Endocrine Medical History: Reports: Hx Diabetes Mellitus Type 2 Renal/ Medical History: Reports: Hx Renal Insufficiency Malignancy Medical History: Reports None GI Medical History: Reports: Hx Diverticulitis, Hx Gastroesophageal Reflux Disease, Hx Colonoscopy, Hx Endoscopy, Other - Pancreatic mass Musculoskeletal Medical History: Reports Hx Arthritis, Reports Hx Musculoskeletal Deformity, Reports Hx Musculoskeletal Trauma Skin Medical History: Reports None Psychiatric Medical History: Reports: None Traumatic Medical History: Reports: Hx Fractures Infectious Medical History: Reports: None Past Surgical History: Reports: Hx Abdominal Surgery - had here, colon, Hx Bowel Surgery, Hx Herniorrhaphy, Hx Pacemaker, Hx Pancreatic Surgery, Hx Testicular Surgery, Other - Partial colectomy - Immunizations Immunizations up to date: Yes Hx Diphtheria, Pertussis, Tetanus Vaccination: Yes Hx Pneumococcal Vaccination: 11/09/08 Review of Systems - Review of Systems Constitutional: No symptoms reported EENT: No symptoms reported Cardiovascular: No symptoms reported Respiratory: No symptoms reported Gastrointestinal: No symptoms reported Genitourinary: No symptoms reported Male Genitourinary: No symptoms reported Musculoskeletal: Other - Left hand and right shoulder pain Skin: No symptoms reported Hematologic/Lymphatic: No symptoms reported Neurological/Psychological: No symptoms reported -: Yes All other systems reviewed and negative Physical Exam - Vital signs Vitals: Temp Pulse Resp BP Pulse Ox 97.9 F 60 20 140/68 H 96 11/07/19 02:28 11/07/19 02:28 11/07/19 02:28 11/07/19 02:28 11/07/19 02:28 Interpretation: Normal - General General appearance: Appears well, Alert - HEENT Head: Normocephalic, Atraumatic Eyes: Normal Pupils: PERRL - Respiratory Respiratory status: No respiratory distress Chest status: Nontender Breath sounds: Normal Chest palpation: Normal - Cardiovascular Rhythm: Regular Heart sounds: Normal auscultation Murmur: No - Abdominal Inspection: Normal Distension: No distension Bowel sounds: Normal Tenderness: Nontender Organomegaly: No organomegaly - Back Back: Normal, Nontender - Extremities General upper extremity: Normal color, Normal temperature General lower extremity: Normal inspection, Nontender, Normal color, Normal ROM, Normal temperature, Normal weight bearing. No: Caridad's sign Shoulder: Tender - Right shoulder, Limited ROM - Due to pain this is chronic. No: Abrasion, Deformity, Dislocation, Ecchymosis, Instability, Laceration Hand: Tender, Dislocation, No evidence of human bite, Swelling - Chronic arthritis to the hand chronic arthritis, Other. No: Abrasion, Ecchymosis, Instability, Laceration, Nail injury - Neurological Neuro grossly intact: Yes Cognition: Normal Orientation: AAOx4 Angela Coma Scale Eye Opening: Spontaneous [place] Coma Scale Verbal: Oriented [place] Coma Scale Motor: Obeys Commands [place] Coma Scale Total: 15 Speech: Normal Motor strength normal: LUE, RUE, LLE, RLE Sensory: Normal - Psychological Associated symptoms: Normal affect, Normal mood - Skin Skin Temperature: Warm Skin Moisture: Dry Skin Color: Normal Course - Re-evaluation Re-evalutation: 11/07/19 07:09 Discussed x-ray with patient and written report of x-ray given to patient to follow-up with his primary and orthopedics. Patient was given a [place] dispense pack to help him with his pain until he can follow-up with his primary doctor. Patient states he has been on hydrocodone in the past for this pain. - Vital Signs Vital signs: Temp Pulse Resp BP Pulse Ox 98.0 F 74 20 118/77 99 11/07/19 05:03 11/07/19 05:03 11/07/19 02:28 11/07/19 05:03 11/07/19 05:03 - Diagnostic Test Radiology reviewed: Image reviewed, Reports reviewed Discharge - Discharge Clinical Impression: Hand pain, left, Arthritis Right shoulder pain Qualifiers: Chronicity: chronic Qualified Code(s): M25.511 - Pain in right shoulder Condition: Stable Disposition: HOME, SELF-CARE Additional Instructions: Arthritis Your symptoms are due to arthritis. Arthritis is an inflammation of the joints. There are many types -- osteoarthritis (due to "wear and tear"), auto- immmune arthritis (such as rheumatoid, lupus, Yumkio's, and others), and crystal-induced arthritis (such as gout and pseudogout). The physician's examination, combined with laboratory tests, will determine the cause of your arthritis. All types of arthritis are treated with antiinflammatory medications. Other medication may be required for special types of arthritis, or if your problem does not respond to the antiinflammatory medicine. Local warmth may be helpful. Move the involved joints through the full range of motion daily. Mild exercise is usually still possible for most persons with arthritis (ask your physician). Swimming provides good exercise without damaging the joints. Contact the physician if you are worsening in any way. You state you have exacerbation of your pain in the left hand and right shoulder from your arthritis. You stated became much worse yesterday. You state you are not able to get into your primary care doctor until after the beginning of the year and the pain is much worse than normal. I have given you 6 [place] in the emergency room, which should help you if you sp cirilo this out until you can follow-up with your primary care doctor. Oral Narcotic Medication You have been given a [place] dispense back for pain control. This medication is a narcotic. It's best taken with food, as nausea can result if taken on an empty stomach. Don't operate machinery or drive within six hours of taking this medication. Do not combine this medicine with alcohol, or with any medication which can cause sedation (such as cold tablets or sleeping pills) unless you get permission from the physician. Narcotics tend to cause constipation. If possible, drink plenty of fluids and eat a diet high in fiber and fruits. Ice Packs Apply ice packs frequently against the painful area. Many different schedules are recommended, such as "20 minutes on, 20 minutes off" or "one hour ice, two hours rest." If you need to work, you may need to go longer between ice treatments. You should plan to have the area ice packed AT LEAST one fourth of the time. The ice should be applied over the wrap, tape, or splint, or over a layer of cloth -- not directly against the skin. Some ice bags have a built-in cloth and can be put directly on the skin. Warm Packs After approximately two days, apply gentle heat (such as a heating pad or hot water bottle) for about 20 to 30 minutes about every two hours -- at least four times daily. Warmth and elevation will help you make a more rapid recovery, and will ease the pain considerably. Do not use HOT heat, and never apply heat for longer than 30 minutes. The continuous heat can invisibly damage skin and muscles -- even when no burn is seen on the surface. Damaged muscles can make you MORE sore. FOLLOW-UP CARE: If you have been referred to a physician for follow-up care, call the [facility] office for an appointment as you were instructed or within the next two days. If you experience worsening or a significant change in your symptoms, notify the physician immediately or return to the Emergency Department at any time for re-evaluation.
== END 2019-11-07 06:30 | disposition home or self-care (01) ==
LOC: ER 02:22
DX: M19.042 Primary osteoarthritis, left hand (principal); M19.011 Primary osteoarthritis, right shoulder; I25.10 Atherosclerotic heart disease of native coronary artery without angina pectoris; I10 Essential (primary) hypertension; J44.9 Chronic obstructive pulmonary disease, unspecified; E11.9 Type 2 diabetes mellitus without complications; Z79.899 Other long term (current) drug therapy; Z91.040 Latex allergy status
CPT/HCPCS: 99283

== ENCOUNTER → 2019-12-23 | Outpatient (CLI) | payer OTHER ==
--- NOTE | 2019-12-23 16:36 | RADIOLOGY REPORT (SQ) ---
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 TECHNIQUE: Dynamic and static grayscale images acquired of the kidneys and bladder and recorded on P ACS. Additional selected color Doppler and spectral images recorded. LIMITATIONS: None. FINDINGS: RIGHT KIDNEY: Normal size, 11.4 cm. Normal echogenicity. No solid masses. Cysts are prese nt. No hydronephrosis. Echogenic foci are present suggesting small intrarenal calculi. LEFT KIDNEY: Normal size, 11.4 cm. Normal echogenicity. No solid masses. 7 mm echogenic focus sug gesting an intrarenal calculus. No hydronephrosis. BLADDER: There appears to be a polypoid lesion in the right side of the bladder versus bladder divert iculum. Ureteral jets are not seen. OTHER FINDINGS: No other significant finding. IMPRESSION: 1. Intrarenal calculi bilaterally. No hydronephrosis. 2. Polypoid lesion in the right side of the bladder versus bladder diverticulum. TECHNICAL DOCUMENTATION: JOB ID: [id number] 2010 [employer]- All Rights Reserved Reading location - IP/workstation name: [email or web address]
== END ==
LOC: RAD 13:45
PROVIDERS: ATTEND Internal Medicine Nephrology
DX: I12.9 Hypertensive chronic kidney disease with stage 1 through stage 4 chronic kidney disease, or unspecified chronic kidney disease (principal); N18.3 Chronic kidney disease, stage 3 (moderate)
CPT/HCPCS: 76770

== ENCOUNTER → 2020-02-02 | Outpatient (CLI) | payer OTHER ==
[2020-02-02 16:48] LABS: ABSOLUTE BASOPHILS # (AUTO) 0.1 10^3/uL (0.0-0.2); ABSOLUTE EOSINOPHILS # (AUTO) 0.1 10^3/uL (0.0-0.6); ABSOLUTE MONOCYTES (AUTO) 0.4 10^3/uL (0.1-1.4); ABSOLUTE NEUT (AUTO) 3.6 10^3/uL (1.7-8.2); BASOPHILS % (AUTO) 1.1 % (0-2); EOSINOPHILS % (AUTO) 1.7 % (0-6); HEMATOCRIT 34.8 % (37.9-51.0); HEMOGLOBIN 11.5 g/dL (13.5-17.0); LYMPHOCYTES % (AUTO) 19.4 % (13-45); MEAN CORPUSCULAR HEMOGLOBIN 29.7 pg (27.0-33.4); MEAN CORPUSCULAR HGB CONC 33.1 g/dL (32.0-36.0); MEAN CORPUSCULAR VOLUME 90 fl (80-97); MONOCYTES % (AUTO) 8.2 % (3-13); PLATELET COUNT 150 10^3/uL (150-450); RED BLOOD COUNT 3.88 10^6/uL (4.35-5.55); SEGMENTED NEUTROPHILS % (AUTO) 69.6 % (42-78); TOTAL CELLS COUNTED % (AUTO) 100 %; WHITE BLOOD COUNT 5.2 10^3/uL (4.0-10.5)
[2020-02-02 16:49] LABS: APPEARANCE,URINE CLOUDY; BILIRUBIN,URINE NEGATIVE (NEGATIVE); COLOR,URINE YELLOW; GLUCOSE, URINE NEGATIVE (NEGATIVE); KETONES,URINE NEGATIVE (NEGATIVE); LEUKOCYTE ESTERASE,URINE NEGATIVE (NEGATIVE); NITRITE,URINE NEGATIVE (NEGATIVE); PROTEIN,URINE 100 mg/dL (NEGATIVE); URINE SPECIFIC GRAVITY 1.025; UROBILINOGEN,URINE NEGATIVE mg/dL (<2.0)
[2020-02-02 16:54] LABS: ANION GAP 7 (5-19); BLOOD UREA NITROGEN 28 mg/dL (7-20); CALCIUM 9.5 mg/dL (8.4-10.2); CARBON DIOXIDE 28 mmol/L (22-30); CHLORIDE 106 mmol/L (98-107); GLUCOSE 95 mg/dL (75-110); PHOSPHORUS 3.6 mg/dL (2.5-4.5)
== END ==
LOC: OD 15:44
PROVIDERS: ATTEND Internal Medicine Nephrology
DX: I12.9 Hypertensive chronic kidney disease with stage 1 through stage 4 chronic kidney disease, or unspecified chronic kidney disease (principal); N18.3 Chronic kidney disease, stage 3 (moderate); E11.22 Type 2 diabetes mellitus with diabetic chronic kidney disease; D64.9 Anemia, unspecified
CPT/HCPCS: 36415; 80069; 81001; 82043; 82306; 82570; 82595; 83970; 84165; 85025; 86021; 86038; 86160; 86162; 86256; 86317; 86803; 86804; 87340

== ENCOUNTER → 2020-03-28 | Outpatient (CLI) | payer MEDICARE, OTHER ==
[2020-03-28 12:32] LABS: ABSOLUTE EOSINOPHILS # (AUTO) 0.1 10^3/uL (0.0-0.6); ABSOLUTE LYMPHOCYTES (AUTO) 1.1 10^3/uL (0.5-4.7); ABSOLUTE MONOCYTES (AUTO) 0.4 10^3/uL (0.1-1.4); ABSOLUTE NEUT (AUTO) 2.5 10^3/uL (1.7-8.2); BASOPHILS % (AUTO) 0.9 % (0-2); EOSINOPHILS % (AUTO) 3.1 % (0-6); HEMATOCRIT 33.6 % (37.9-51.0); HEMOGLOBIN 11.3 g/dL (13.5-17.0); LYMPHOCYTES % (AUTO) 25.9 % (13-45); MEAN CORPUSCULAR HEMOGLOBIN 29.7 pg (27.0-33.4); MEAN CORPUSCULAR HGB CONC 33.7 g/dL (32.0-36.0); MEAN CORPUSCULAR VOLUME 88 fl (80-97); MONOCYTES % (AUTO) 9.6 % (3-13); PLATELET COUNT 150 10^3/uL (150-450); RED BLOOD COUNT 3.81 10^6/uL (4.35-5.55); RED CELL DISTRIBUTION WIDTH 13.5 % (11.5-14.0); SEGMENTED NEUTROPHILS % (AUTO) 60.5 % (42-78); TOTAL CELLS COUNTED % (AUTO) 100 %; WHITE BLOOD COUNT 4.1 10^3/uL (4.0-10.5)
[2020-03-28 12:43] LABS: APPEARANCE,URINE SLIGHTLY-CLOUDY; BILIRUBIN,URINE NEGATIVE (NEGATIVE); COLOR,URINE YELLOW; GLUCOSE, URINE NEGATIVE (NEGATIVE); KETONES,URINE NEGATIVE (NEGATIVE); LEUKOCYTE ESTERASE,URINE NEGATIVE (NEGATIVE); NITRITE,URINE NEGATIVE (NEGATIVE); PROTEIN,URINE 100 mg/dL (NEGATIVE); URINE SPECIFIC GRAVITY 1.026; UROBILINOGEN,URINE NEGATIVE mg/dL (<2.0)
[2020-03-28 12:50] LABS: ALBUMIN 3.9 g/dL (3.5-5.0); ANION GAP 7 (5-19); BLOOD UREA NITROGEN 25 mg/dL (7-20); CALCIUM 8.8 mg/dL (8.4-10.2); CARBON DIOXIDE 26 mmol/L (22-30); CHLORIDE 105 mmol/L (98-107); GLUCOSE 110 mg/dL (75-110); PHOSPHORUS 3.9 mg/dL (2.5-4.5); POTASSIUM 4.1 mmol/L (3.6-5.0)
[2020-03-29 06:36] LABS: COMPLEMENT C3 99 mg/dL (82-167); COMPLEMENT C4 39 mg/dL (14-44); HEPATITIS C VIRUS AB 0.3 s/co ratio (0.0-0.9)
[2020-03-29 07:10] LABS: HEPATITS B SURFACE ANTIGEN Negative (Negative)
[2020-03-29 10:36] LABS: CREATININE URINE 175.9 mg/dL (Not Estab.)
[2020-03-29 10:38] LABS: MICROALBUMIN URINE 635.6 ug/mL (Not Estab.)
[2020-03-29 12:48] LABS: GLOMERULAR BASMENT MEMBRANE AB 3 units (0-20)
== END ==
LOC: OD 11:39
PROVIDERS: ATTEND Internal Medicine Nephrology
DX: I12.9 Hypertensive chronic kidney disease with stage 1 through stage 4 chronic kidney disease, or unspecified chronic kidney disease (principal); N18.3 Chronic kidney disease, stage 3 (moderate); E11.22 Type 2 diabetes mellitus with diabetic chronic kidney disease; D63.1 Anemia in chronic kidney disease; Z11.59 Encounter for screening for other viral diseases
CPT/HCPCS: 36415; 80069; 81001; 82043; 82306; 82570; 82595; 83970; 84165; 85025; 86021; 86038; 86160; 86162; 86256; 86317; 86803; 86804; 87340

== ENCOUNTER 2020-04-18 05:37 | Emergency (ER) | payer OTHER, MEDICARE ==
--- NOTE | 2020-04-18 06:15 | RADIOLOGY REPORT (SQ) ---
EXAM DESCRIPTION: CT HEAD WITHOUT IV CONTRAST COMPLETED DATE/TME: 04/18/2020 00:00 CLINICAL HISTORY: 79 years, Male, ams COMPARISON: 03-27 CT TECHNIQUE: 459 Images stored on PACS. All CT scanners at this facility use dose modulation, iterative reconstruction, and/or weight based dosing when appropriate to reduce radiation dose to as low as reasonably achievable (ALARA). [facility]: Dose Right [facility]: CareDose [facility]: Dose Right [facility]: Teradose 4D [facility]: [employer] LIMITATIONS: None. FINDINGS: Exam is limited due to patient motion. The superior most portion of the brain was not included on the exam. The globes appear intact. Paranasal sinuses and mastoid air cells are grossly unremarkable. No displaced or depressed skull fracture. As visualized no intra or extra-axial hemorrhage. CT is limited for evaluation of acute infarct. No CT evidence for large or territorial acute infarct. Age-appropriate atrophy. No mass or midline shift. IMPRESSION: Limited due to motion. The superior most portion of the brain not included on the exam. As visualized no evidence for acute intracranial abnormality TECHNICAL DOCUMENTATION: Quality ID # 436: Final reports with documentation of one or more dose reduction techniques (e.g., Automated exposure control, adjustment of the mA and/or kV according to patient size, use of iterative reconstruction technique) copyright 2011 [employer]- All Rights Reserved
[2020-04-18 07:02] LABS: APPEARANCE,URINE CLEAR; BILIRUBIN,URINE NEGATIVE (NEGATIVE); COLOR,URINE COLORLESS; GLUCOSE, URINE NEGATIVE (NEGATIVE); KETONES,URINE NEGATIVE (NEGATIVE); LEUKOCYTE ESTERASE,URINE NEGATIVE (NEGATIVE); NITRITE,URINE NEGATIVE (NEGATIVE); PROTEIN,URINE 30 mg/dL (NEGATIVE); URINE SPECIFIC GRAVITY 1.006; UROBILINOGEN,URINE NEGATIVE mg/dL (<2.0)
[2020-04-18 07:12] LABS: ALBUMIN 4.1 g/dL (3.5-5.0); ALKALINE PHOSPHATASE 64 U/L (38-126); ANION GAP 7 (5-19); ASPARTATE AMINO TRANSFERASE 53 U/L (17-59); BILIRUBIN,TOTAL 0.5 mg/dL (0.2-1.3); BLOOD UREA NITROGEN 27 mg/dL (7-20); CARBON DIOXIDE 28 mmol/L (22-30); CHLORIDE 104 mmol/L (98-107); GLUCOSE 106 mg/dL (75-110); TOTAL PROTEIN 6.7 g/dL (6.3-8.2)
[2020-04-18 07:13] LABS: ADD MANUAL MICROSCOPIC YES; ALCOHOL < 10 mg/dL (NONE DETECTED); RBC,URINE RARE /HPF; WBC,URINE RARE /HPF
[2020-04-18 07:15] LABS: ABSOLUTE EOSINOPHILS # (AUTO) 0.1 10^3/uL (0.0-0.6); ABSOLUTE MONOCYTES (AUTO) 0.5 10^3/uL (0.1-1.4); ABSOLUTE NEUT (AUTO) 6.2 10^3/uL (1.7-8.2); BASOPHILS % (AUTO) 0.6 % (0-2); EOSINOPHILS % (AUTO) 1.6 % (0-6); HEMATOCRIT 35.4 % (37.9-51.0); HEMOGLOBIN 11.7 g/dL (13.5-17.0); LYMPHOCYTES % (AUTO) 12.5 % (13-45); MEAN CORPUSCULAR HEMOGLOBIN 29.3 pg (27.0-33.4); MEAN CORPUSCULAR VOLUME 89 fl (80-97); MONOCYTES % (AUTO) 5.9 % (3-13); PLATELET COUNT 143 10^3/uL (150-450); RED CELL DISTRIBUTION WIDTH 13.7 % (11.5-14.0); SEGMENTED NEUTROPHILS % (AUTO) 79.4 % (42-78); TOTAL CELLS COUNTED % (AUTO) 100 %; WHITE BLOOD COUNT 7.8 10^3/uL (4.0-10.5)
[2020-04-18 07:20] LABS: URINE AMPHETAMINES SCREEN NEGATIVE; URINE BARBITURATES SCREEN NEGATIVE; URINE BENZODIAZEPINES SCREEN NEGATIVE; URINE COCAINE SCREEN NEGATIVE; URINE MARIJUANA (THC) SCREEN NEGATIVE; URINE PHENCYCLIDINE SCREEN NEGATIVE
[2020-04-18 07:23] LABS: URINE METHADONE SCREEN NEGATIVE
[2020-04-18] MEDS ORDERED: KETOROLAC TROMETHAMINE INJ/PF 30 MG/1 ML SDV IV ONE (07:37)
--- NOTE | 2020-04-18 07:40 | ER Document Report ---
ED General - General Chief Complaint: Abdominal Pain Stated Complaint: ABDOMINAL PAIN Time Seen by Provider: 04/18/20 07:28 Primary Care Provider: DEMETRIO MORAES MD [NO LOCAL MD] - Follow up as needed RODRIGO ROBERSON MD [NO LOCAL MD] - Follow up as needed JOCELYNN MUNOZ [NO LOCAL MD] - Follow up as needed Mode of Arrival: Medic Information source: Patient TRAVEL OUTSIDE OF THE [place] IN LAST 30 DAYS: No - HPI Onset: Other - since around 4am Onset/Duration: Sudden Quality of pain: Achy, Sharp Severity: Moderate Pain Level: 3 Associated symptoms: Nausea Exacerbated by: Movement Relieved by: Denies Similar symptoms previously: No Recently seen / treated by doctor: No Notes: 79 year old male with a history of Kidney Stones (seen in Dec 2019 on an ultrasound), CAD, HTN, DM, COPD, GERD here in the ER for left sided flank pain and left sided abdominal pain with associated nausea which started around 4am. The patient is somewhat of a poor historian and at times his [place] accent makes it difficult to understand him. Patient denies fevers, chills, sweats, new urinary symptoms. Patient does endorse some constipation. - Related Data Allergies/Adverse Reactions: latex Allergy (Verified 12/16/17 19:05) Past Medical History - General Information source: Patient - Social History Smoking Status: Never Smoker Frequency of alcohol use: None Drug Abuse: None Family History: None, Reviewed & Not Pertinent Patient has suicidal ideation: No Patient has homicidal ideation: No - Past Medical History Cardiac Medical History: Reports: Hx Coronary Artery Disease, Hx Hypertension Denies: Hx Heart Attack Pulmonary Medical History: Reports: Hx COPD Denies: Hx Asthma, Hx Bronchitis, Hx Pneumonia, Hx Tuberculosis Neurological Medical History: Denies: Hx Cerebrovascular Accident, Hx Seizures Endocrine Medical History: Reports: Hx Diabetes Mellitus Type 2. Denies: Hx Diabetes Mellitus Type 1, Hx Hyperthyroidism, Hx Hypothyroidism Renal/ Medical History: Reports: Hx Renal Insufficiency. Denies: Hx Peritoneal Dialysis GI Medical History: Reports: Hx Diverticulitis, Hx Gastroesophageal Reflux Disease, Hx Colonoscopy, Hx Endoscopy. Denies: Hx Cirrhosis, Hx Hepatitis Musculoskeletal Medical History: Reports Hx Arthritis, Denies Hx Gout, Reports Hx Musculoskeletal Deformity, Reports Hx Musculoskeletal Trauma Skin Medical History: Denies Hx Eczema, Denies Hx Psoriasis Psychiatric Medical History: Denies: Hx Depression Traumatic Medical History: Reports: Hx Fractures Infectious Medical History: Denies: Hx Hepatitis Past Surgical History: Reports: Hx Abdominal Surgery - had here, colon, Hx Bowel Surgery, Hx Herniorrhaphy, Hx Pacemaker, Hx Pancreatic Surgery, Hx Testicular Surgery, Other - Partial colectomy - Immunizations Immunizations up to date: Yes Hx Diphtheria, Pertussis, Tetanus Vaccination: Yes Hx Pneumococcal Vaccination: 11/09/08 Review of Systems - Review of Systems Constitutional: No symptoms reported EENT: No symptoms reported Cardiovascular: No symptoms reported Respiratory: No symptoms reported Gastrointestinal: Abdominal pain, Nausea Genitourinary: Flank pain - left sided Male Genitourinary: No symptoms reported Musculoskeletal: No symptoms reported Skin: No symptoms reported Hematologic/Lymphatic: No symptoms reported Neurological/Psychological: No symptoms reported -: Yes All other systems reviewed and negative Physical Exam - Vital signs Vitals: Temp 97.6 F 04/18/20 06:14 - Notes Notes: GENERAL: Well-appearing, well-nourished and in no acute distress. HEAD: Atraumatic, normocephalic. EYES: Pupils equal round and reactive to light, extraocular movements intact, sclera anicteric, conjunctiva are normal. ENT: External ears normal, nares patent, oropharynx clear without exudates. Mo ist mucous membranes. NECK: Normal range of motion, supple without lymphadenopathy or JVD. LUNGS: Breath sounds clear to auscultation bilaterally and equal. No wheezes rales or rhonchi. HEART: Regular rate and rhythm without murmurs, rubs or gallops. ABDOMEN: Soft, mild left upper quadrant tenderness, moderate left flank tenderness, normoactive bowel sounds. No guarding, no rebound. No masses a ppreciated. EXTREMITIES: Normal range of motion, no pitting or edema. No clubbing or cyanosis. NEUROLOGICAL: Cranial nerves II through XII grossly intact. Normal speech, normal gait. PSYCH: Normal mood, normal affect. SKIN: Warm, Dry, normal turgor, no rashes or lesions noted. Course - Re-evaluation Re-evalutation: 04/18/20 08:55 The patient has a left sided kidney stone (6x5 mm in distal left ureter) which is likely the cause of his left flank and left sided abdominal pain. Patient given a dose of Toradol in the ER. Will DC patient on Flomax and will also prescribe short course of [place]. Will refer to Urology if he doesnt pass the stone. Patient has other findings on his CT (cystic lesion in pancreas and a mass in his colon) which he was told to follow up with his PCP for as soon as possible. The patient knows about his pancreatic mass and but he did not know about the colonic mass. Dr. Hardy of Oncology who the patient follows up with was paged and notified of his CT findings today. Dr. 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 Dr. Hardy recommends the patient follow up with his PCP to have a Colonoscopy scheduled. - Vital Signs Vital signs: Temp Pulse Resp BP Pulse Ox 97.6 F 14 155/103 H 97 04/18/20 06:14 04/18/20 06:22 04/18/20 06:22 04/18/20 06:47 - Laboratory Result Diagrams: 04/18/20 06:44 04/18/20 06:44 Laboratory results interpreted by me: 04/18/20 04/18/20 04/18/20 06:44 06:44 06:44 RBC 4.00 L Hgb 11.7 L Hct 35.4 L Plt Count 143 L Lymph % (Auto) 12.5 L Seg Neutrophils % 79.4 H BUN 27 H Creatinine 1.38 H Est GFR (MDRD) Non-Af 50 L ALT 53 H Urine Protein 30 H - Diagnostic Test Radiology reviewed: Image reviewed, Reports reviewed Discharge - Discharge Clinical Impression: Kidney stone on left side Condition: Stable Disposition: HOME, SELF-CARE Instructions: Kidney Stone ([facility]) Additional Instructions: You have a 6mm x 5mm kidney stone in your left distal ureter. Strain your urine to see if you pass this kidney stone. You also have a cystic mass in your pancreas which has increased in size some from 4.7x1.9cm to 5x1.9cm. You also have a stable mass in your descending colon. Follow up with your primary care doctor to go over your CT findings. You likely need a colonoscopy in the near future for further evaluation of your colonic mass. Take Flomax to help you pass the kidney stone. Use Hydrocodone for pain not well controlled with over the counter Tylenol and Motrin. Prescriptions: Tamsulosin HCl [Flomax] 0.4 mg PO DAILY 20 Days #20 cap.er.24h Hydrocodone/Acetaminophen [Lorcet 5-325 mg Tablet] 1 each PO Q8H PRN #10 tablet PRN Reason: Referrals: DEMETRIO MORAES MD [NO LOCAL MD] - Follow up as needed RODRIGO ROBERSON MD [NO LOCAL MD] - Follow up as needed JOCELYNN MUNOZ [NO LOCAL MD] - Follow up as needed
--- NOTE | 2020-04-18 08:48 | RADIOLOGY REPORT (SQ) ---
EXAM DESCRIPTION: CT ABD/PELVIS NO ORAL OR IV IMAGES COMPLETED DATE/TIME: 04/18/2020 8:23 am REASON FOR STUDY: eval for left flank pain. rule out kidney stone COMPARISON: CT of the abdomen and pelvis with contrast from 12/16/2017. TECHNIQUE: CT scan of the abdomen and pelvis performed without intravenous or oral contrast. Images reviewed with lung, soft tissue, and bone windows. Reconstructed coronal and sagittal MPR images revi ewed. All images stored on PACS. All CT scanners at this facility use dose modulation, iterative reconstruction, and/or weight based d osing when appropriate to reduce radiation dose to as low as reasonably achievable (ALARA). [facility]: Dose Right [facility]: CareDose [facility]: Dose Right [facility]: Teradose 4D [facility]: [employer] RADIATION DOSE: CT Rad equipment meets quality standard of care and radiation dose reduction techniq ues were employed. CTDIvol: 5.4 mGy. DLP: 283 mGy-cm. LIMITATIONS: None. FINDINGS: LOWER CHEST: Pacemaker leads that terminate within the right atrial appendage and right ve ntricle. NON-CONTRASTED LIVER, SPLEEN, ADRENALS: Evaluation is limited due to the absence of intravenous contr ast. There is no evidence of hepatic steatosis. The spleen is normal in size. There is no adrenal mass. PANCREAS: The cystic lesion anterior to the pancreas and posterior to the stomach on image 21 of seri es 3 has increased in size and it measures 5 x 1.9 cm compared to 4.7 x 1.[address] from 8. There is no peripancreatic inflammation. GALLBLADDER: No abnormality that is apparent on CT. RIGHT KIDNEY AND URETER: Evaluation is limited due to the absence of intravenous contrast. There is no hydronephrosis, nephrolithiasis, hydroureter or ureterolithiasis. LEFT KIDNEY AND URETER: Evaluation is limited due to the absence of intravenous contrast. There is a 6 x 5 mm calculus within the distal left ureter (image 69 of series 3) that is associated with mild hydroureteronephrosis and pararenal fluid. There is a 3 mm caliceal calculus in the lower pole of the kidney. AORTA AND RETROPERITONEUM: Atherosclerotic calcification of the abdominal aorta without aneurysmal di latation. There is no retroperitoneal adenopathy, hemorrhage or mass. BOWEL AND PERITONEAL CAVITY: Colonic diverticulosis without diverticulitis. There is a partially sadie cified mass anterior to the descending colon (image 30 of series 3) that measures 2.7 x 2.1 cm and is unchanged in size compared to the CT from 12/16/2017. There is no bowel obstruction, bowel wall thick ening or pericolonic/perienteric inflammation. There is no mesenteric adenopathy, free intraperitone al fluid or mesenteric/omental inflammation. APPENDIX: Unable to identify the appendix. PELVIS, BLADDER, AND ABDOMINAL WALL:The prostate gland is enlarged. There is no urinary bladder calc ulus. There are findings in the ventral abdominal wall consistent with prior inguinal herniorrhaphie s. BONES: Osteopenia. The appearance of the left ilium is unchanged. OTHER: No other finding. IMPRESSION: 1. 6 x 5 mm calculus within the distal left ureter that is associated with mild hydrour eteronephrosis and pararenal fluid. 2. Cystic lesion anterior to the pancreas and posterior to the stomach (image 21 of series 3) that h as increased in size and it measures 5 x 1.9 cm compared to 4.7 x 1.9 cm on the 12/16/2017 CT. 3. Prostatomegaly. 4. Stable partially calcified mass anterior to the descending colon (image 30 of series 3). COMMENT: Quality ID # [id number]: Final reports with documentation of one or more dose reduction techniques (e.g., Automated exposure control, adjustment of the mA and/or kV according to patient size, use of iterative reconstruction technique) TECHNICAL DOCUMENTATION: JOB ID: [id number] 2010 [employer]- All Rights Reserved Reading location - IP/workstation name: [email or web address]
[2020-04-18 09:54] VITALS: BP 161/86
--- NOTE | 2020-04-18 11:11 | EKG REPORT ---
SEVERITY:- ABNORMAL ECG - SINUS RHYTHM VENTRICULAR TRIGEMINY FIRST DEGREE AV BLOCK RIGHT BUNDLE BRANCH BLOCK BORDERLINE INFERIOR Q WAVES : Confirmed by: Keila Calvin MD 18-Apr-2020 11:09:56
== END 2020-04-18 09:54 | disposition home or self-care (01) ==
LOC: ER 05:37
DX: N20.0 Calculus of kidney (principal); R10.9 Unspecified abdominal pain; R11.0 Nausea; K59.00 Constipation, unspecified; I25.10 Atherosclerotic heart disease of native coronary artery without angina pectoris; I10 Essential (primary) hypertension; E11.9 Type 2 diabetes mellitus without complications; J44.9 Chronic obstructive pulmonary disease, unspecified; K21.9 Gastro-esophageal reflux disease without esophagitis; Z88.8 Allergy status to other drugs, medicaments and biological substances
CPT/HCPCS: 93005; 99284; 96374; 36415; 80307 ×2; 83735; 85025; 80053; 81001; 70450; 74176; 93010; J1885

== ENCOUNTER 2020-04-26 02:56 | Emergency (ER) | payer OTHER, MEDICARE ==
[2020-04-26] MEDS ORDERED: OXYCODONE-ACETAMINOPHEN 5-325 MG TABLET PO ONE (03:32)
[2020-04-26] MEDS ORDERED: ONDANSETRON 4 MG TAB.RAPDIS PO ONE (03:32)
[2020-04-26 03:38] LABS: ABSOLUTE BASOPHILS # (AUTO) 0.1 10^3/uL (0.0-0.2); ABSOLUTE EOSINOPHILS # (AUTO) 0.1 10^3/uL (0.0-0.6); ABSOLUTE LYMPHOCYTES (AUTO) 0.9 10^3/uL (0.5-4.7); ABSOLUTE MONOCYTES (AUTO) 0.5 10^3/uL (0.1-1.4); ABSOLUTE NEUT (AUTO) 6.3 10^3/uL (1.7-8.2); BASOPHILS % (AUTO) 0.8 % (0-2); EOSINOPHILS % (AUTO) 1.8 % (0-6); HEMATOCRIT 35.2 % (37.9-51.0); HEMOGLOBIN 11.8 g/dL (13.5-17.0); MEAN CORPUSCULAR HEMOGLOBIN 29.5 pg (27.0-33.4); MEAN CORPUSCULAR HGB CONC 33.6 g/dL (32.0-36.0); MEAN CORPUSCULAR VOLUME 88 fl (80-97); MONOCYTES % (AUTO) 6.2 % (3-13); PLATELET COUNT 161 10^3/uL (150-450); RED BLOOD COUNT 4.01 10^6/uL (4.35-5.55); RED CELL DISTRIBUTION WIDTH 13.6 % (11.5-14.0); SEGMENTED NEUTROPHILS % (AUTO) 80.2 % (42-78); TOTAL CELLS COUNTED % (AUTO) 100 %; WHITE BLOOD COUNT 7.8 10^3/uL (4.0-10.5)
[2020-04-26 03:53] LABS: APPEARANCE,URINE CLEAR; BILIRUBIN,URINE NEGATIVE (NEGATIVE); COLOR,URINE AMBER; GLUCOSE, URINE NEGATIVE (NEGATIVE); KETONES,URINE NEGATIVE (NEGATIVE); LEUKOCYTE ESTERASE,URINE NEGATIVE (NEGATIVE); NITRITE,URINE POSITIVE (NEGATIVE); PROTEIN,URINE 30 mg/dL (NEGATIVE); URINE SPECIFIC GRAVITY 1.016
[2020-04-26 04:01] LABS: ALBUMIN 4.4 g/dL (3.5-5.0); ALKALINE PHOSPHATASE 65 U/L (38-126); ANION GAP 9 (5-19); ASPARTATE AMINO TRANSFERASE 38 U/L (17-59); BILIRUBIN,TOTAL 0.4 mg/dL (0.2-1.3); BLOOD UREA NITROGEN 37 mg/dL (7-20); CALCIUM 9.5 mg/dL (8.4-10.2); CARBON DIOXIDE 26 mmol/L (22-30); CHLORIDE 101 mmol/L (98-107); GLUCOSE 132 mg/dL (75-110); POTASSIUM 4.4 mmol/L (3.6-5.0); TOTAL PROTEIN 7.3 g/dL (6.3-8.2)
--- NOTE | 2020-04-26 06:54 | ER Document Report ---
ED General - General Chief Complaint: Possible Kidney Stone Stated Complaint: FLANK PAIN Time Seen by Provider: 04/26/20 06:36 TRAVEL OUTSIDE OF THE [place]. IN LAST 30 DAYS: No - HPI Notes: Chief complaint: Kidney stone History of present illness: 79-year-old male seen here [address] Margarito Short with left flank pain radiating to the groin and CT scan at that time demonstrated a 5 x 6 mm stone at the left UVJ. Creatinine was 1.3 and he had no evidence of infection. He was given pain medication and referred to urology. He failed to make a follow-up appointment. Comes back in today with persistent/recurrent discomfort. Mild nausea without vomiting. No fever or chills. Denies difficulty voiding. - Related Data Allergies/Adverse Reactions: latex Allergy (Verified 04/26/20 03:06) Past Medical History - General Information source: Patient, [facility] Records - Social History Smoking Status: Never Smoker Frequency of alcohol use: Social Drug Abuse: None Family History: None, Reviewed & Not Pertinent Patient has homicidal ideation: No - Past Medical History Cardiac Medical History: Reports: Hx Coronary Artery Disease, Hx Hypertension Denies: Hx Heart Attack Pulmonary Medical History: Reports: Hx COPD Denies: Hx Asthma, Hx Bronchitis, Hx Pneumonia, Hx Tuberculosis Neurological Medical History: Denies: Hx Cerebrovascular Accident, Hx Seizures Endocrine Medical History: Reports: Hx Diabetes Mellitus Type 2. Denies: Hx Diabetes Mellitus Type 1, Hx Hyperthyroidism, Hx Hypothyroidism Renal/ Medical History: Reports: Hx Renal Insufficiency. Denies: Hx Peritoneal Dialysis GI Medical History: Reports: Hx Diverticulitis, Hx Gastroesophageal Reflux Disease, Hx Colonoscopy, Hx Endoscopy, Other - History of colon cancer. Pancreatic [facility] Denies: Hx Cirrhosis, Hx Hepatitis Musculoskeletal Medical History: Reports Hx Arthritis, Denies Hx Gout, Reports Hx Musculoskeletal Deformity, Reports Hx Musculoskeletal Trauma Skin Medical History: Denies Hx Eczema, Denies Hx Psoriasis Psychiatric Medical History: Denies: Hx Depression Traumatic Medical History: Reports: Hx Fractures Infectious Medical History: Denies: Hx Hepatitis Past Surgical History: Reports: Hx Abdominal Surgery - had here, colon, Hx Bowel Surgery, Hx Herniorrhaphy, Hx Pacemaker, Hx Pancreatic Surgery, Hx Testicular Surgery, Other - Partial colectomy - Immunizations Immunizations up to date: Yes Hx Diphtheria, Pertussis, Tetanus Vaccination: Yes Hx Pneumococcal Vaccination: 11/09/08 Review of Systems - Review of Systems Notes: Constitutional: Negative for fever. HENT: Negative for sore throat. Eyes: Negative for visual changes. Cardiovascular: Negative for chest pain. Respiratory: Negative for shortness of breath. Gastrointestinal: As per HPI. Genitourinary: As per HPI. Musculoskeletal: Negative for back pain. Skin: Negative for rash. Neurological: Negative for headaches, weakness or numbness. 10 point ROS negative except as marked above and in HPI. Physical Exam - Vital signs Vitals: Temp Pulse Resp BP Pulse Ox 97.7 F 73 16 148/85 H 97 04/26/20 03:04 04/26/20 03:04 04/26/20 03:04 04/26/20 03:04 04/26/20 03:04 - Notes Notes: GENERAL: Elderly male appearing in no acute distress. SKIN: Good turgor no rashes. HEAD: Normocephalic atraumatic. EYES: PERRLA. EOMI. Conjunctivae and sclerae clear. EARS: CANALS AND TMS CLEAR. NOSE: CLEAR. MOUTH: Moist mucosa. Edentulous. No stridor or edema. No drooling. NECK: Supple. No masses or thyromegaly. No adenopathy. Carotids 2+ without bruits. No JVD. BACK: Symmetrical without tenderness. CHEST: Respirations unlabored. Breath sounds clear and symmetrical. HEART: Regular rhythm. No murmur gallop or rub. ABDOMEN: Healed midline surgical scar present. Soft nontender without masses, organomegaly or rebound. Bowel sounds normally active. No bruits. GENITALIA: Deferred. EXTREMITIES: No edema. No calf tenderness. Cap refill less than 1.5 seconds. Dorsalis pedis and posterior tibial pulses 3+ and symmetrical. NEUROLOGICAL: GCS 15. Alert and oriented x3. Normal gait. Fluent speech. Cranial nerves II through XII intact. Sensorimotor and cerebellar normal. Normal tone. PSYCHIATRIC: Appropriate affect. Course - Re-evaluation Re-evalutation: 04/26/20 06:54 Patient renal function is deteriorated since prior visit with creatinine at 2.3 consistent with acute kidney injury. Midlevel provider gave this patient some Percocet on arrival for pain is relatively comfortable right now. He also re ceived some oral Zofran and he no longer complains of nausea. I am going to repeat a CT stone study and will place an IV and hydrate him. I will then consult with urology. 04/26/20 10:54 CT stone study suggest persistent obstruction at the level of the UPJ on the left with a stone approximately 1.0 cm in size. We have no urology automobile sales consultant available locally. Case was discussed with Dr. Green the on-call urologist at [facility]. He agrees that patient requires transfer and he will be happy to see this man for consultation and will try to coordinate admission to their hospitalist service. I have subsequently received a call from Dr. Victor with her hospitalist service who has agreed to accept patient for transfer. EMTALA form completed. - Vital Signs Vital signs: Temp Pulse Resp BP Pulse Ox 97.3 F 70 18 151/83 H 97 04/26/20 07:15 04/26/20 07:15 04/26/20 07:15 04/26/20 07:15 04/26/20 07:15 - Laboratory Result Diagrams: 04/26/20 03:21 04/26/20 03:21 Laboratory results interpreted by me: 04/26/20 04/26/20 04/26/20 03:21 03:21 03:29 RBC 4.01 L Hgb 11.8 L Hct 35.2 L Lymph % (Auto) 11.0 L Seg Neutrophils % 80.2 H Sodium 135.9 L BUN 37 H Creatinine 2.31 H Est GFR ( Amer) 33 L Est GFR (MDRD) Non-Af 28 L Glucose 132 H Urine Protein 30 H Urine Nitrite POSITIVE H Urine Urobilinogen 2.0 H Urine Ascorbic Acid 40 H Discharge - Discharge Clinical Impression: Ureterolithiasis with obstruction left u, Acute kidney injury Condition: Serious Disposition: [facility]
[2020-04-26] MEDS ORDERED: NORMAL SALINE 1000 ML 1,000 ML IV ONE (06:56)
--- NOTE | 2020-04-26 07:52 | RADIOLOGY REPORT (SQ) ---
EXAM DESCRIPTION: CT ABDOMEN PELVIS WITHOUT IV CONTRAST COMPLETED DATE/TME: 04/26/2020 06:46 CLINICAL HISTORY: 79 years Male, L FLANK PAIN Comparison: 04/18/2020. To 718. Technique: No contrast. Coronal and sagittal reformat. This exam was performed according to our departmental dose-optimization program, which includes automated exposure control, adjustment of the mA and/or kV according to patient size and/or use of iterative reconstruction technique.[facility]: Dose Right [facility]: CareDose [facility]: Dose Right [facility]: Teradose 4D [facility]: Melophone LIMITATIONS: None Findings: 1.0 x 0.6 x 0.5 cm, 952-HU, probable left distal ureteral stone within 3-cm of the urinary bladder. Mild left hydronephrosis/hydroureter. Mild mesenteric fat inflammation of the left paracentral abdomen. Mild anterior vertebral wedging at T12 and T11, stable. Bony demineralization. Small disc bulge at the L5-S1 level. Cardiac stimulator leads partially imaged. Bilateral herniorrhaphy and surgical clips at the lower pelvic wall. Coronary arterial calcification. Atherosclerotic vascular disease. Renal arterial calcification. 4.7 cm diameter gallbladder. Likely benign renal cyst(s), not definitively characterized. Complex 5.7 cm cystic lesion at the anterior aspect of the pancreatic body is stable. Emphysematous hyperinflation. Atelectasis/scar. Old granulomatous disease. 2.1 cm likely benign partially calcified mass anterior to the left colon without interval change. 6.2 cm complex cystic and lytic lesion of the left iliac wing without suspicious interval change. No ascites. No pneumoperitoneum. No evidence of appendicitis. Appendix not definitively discerned/appendectomy. No gross evidence of gallbladder inflammation, hepatobiliary obstruction, or portal vein defect. No bowel obstruction. No evidence of abdominal aortic aneurysm. Unenhanced lower thorax, abdominopelvic structures, and musculoskeleton appear otherwise grossly unremarkable. Impression: 1. 1.0 cm left distal ureteral stone with low-grade obstruction. No significant interval change. 2. Complex 5.7 cm cystic lesion at the anterior aspect of the pancreatic body increased compared to exam from December 2017. Differential diagnosis includes neoplasm. Recommend dedicated contrast CT or MRI of the abdomen, pancreas protocol.
[2020-04-26] MEDS ORDERED: MORPHINE SULFATE 10 MG/ML INJ IV ONE (09:34)
[2020-04-26] MEDS ORDERED: KETOROLAC TROMETHAMINE 60 MG/2 ML SDV IM ONE (10:06)
[2020-04-26 11:56] VITALS: BP 184/92
== END 2020-04-26 12:09 | disposition short-term general hospital (02) ==
LOC: ER 02:56
DX: N13.2 Hydronephrosis with renal and ureteral calculous obstruction (principal); N17.9 Acute kidney failure, unspecified; R11.0 Nausea; I25.10 Atherosclerotic heart disease of native coronary artery without angina pectoris; I10 Essential (primary) hypertension; J44.9 Chronic obstructive pulmonary disease, unspecified; E11.9 Type 2 diabetes mellitus without complications; Z91.040 Latex allergy status
CPT/HCPCS: 99285; 96361; 96374; 36415; 83690; 85025; 80053; 81001; 74176; S0119; J2270; J7030

== ENCOUNTER 2020-05-28 11:20 | Emergency (ER) | payer OTHER, MEDICARE ==
[2020-05-28 11:31] VITALS: BP 157/75
[2020-05-28] MEDS ORDERED: ACETAMINOPHEN 325 MG TABLET PO ONE (12:04)
--- NOTE | 2020-05-28 12:07 | ER Document Report ---
ED GI/ - General Stated Complaint: ABDOMINAL PAIN Time Seen by Provider: 05/28/20 11:32 Primary Care Provider: DU BACK MD [NO LOCAL MD] - 05/28/20 2:15 pm Mode of Arrival: Ambulatory Information source: Patient Notes: Patient presents complaining of left flank pain that radiates into the groin. Patient also has had some hematuria and dysuria symptoms. Patient states that the dysuria is mild and he has had hematuria for the past month. Patient was going to a follow-up appointment today at [facility] and when they saw him they told him to come here for further evaluation. Patient is concerned because he has a follow-up appointment with his urologist at [facility] to remove a stent. Patient had stent placement recently for a left-sided kidney stone after they busted up his stone. Patient states he has been passing stone fragments in his urine. Patient states he only came here because the [facility] staff advised him to. TRAVEL OUTSIDE OF THE [place] IN LAST 30 DAYS: No - HPI Patient complains to provider of: Abdominal pain, Flank pain, Testicular pain. No: Vomiting Onset: Other - 1 month Timing/Duration: Persistent Quality of pain: Achy Pain Level: 3 Location: LLQ, Left flank Associated symptoms: Hematuria. denies: Diarrhea, Fever, Nausea, Urinary hes itancy, Urinary frequency, Urinary retention, Urinary urgency, Vomiting Exacerbated by: Denies Relieved by: Denies Similar symptoms previously: Yes Recently seen / treated by doctor: Yes - Related Data Allergies/Adverse Reactions: latex Allergy (Verified 04/26/20 03:06) Past Medical History - General Information source: Patient - Social History Smoking Status: Current Every Day Smoker Frequency of alcohol use: None Drug Abuse: None Occupation: none Lives with: Spouse/Significant other Family History: None, Reviewed & Not Pertinent - Past Medical History Cardiac Medical History: Reports: Hx Coronary Artery Disease, Hx Hypertension Denies: Hx Heart Attack Pulmonary Medical History: Reports: Hx COPD Denies: Hx Asthma, Hx Bronchitis, Hx Pneumonia, Hx Tuberculosis Endocrine Medical History: Reports: Hx Diabetes Mellitus Type 2 Renal/ Medical History: Reports: Hx Kidney Stones, Hx Renal Insufficiency GI Medical History: Reports: Hx Diverticulitis, Hx Gastroesophageal Reflux Disease, Hx Colonoscopy, Hx Endoscopy Musculoskeletal Medical History: Reports Hx Arthritis, Reports Hx Musculoskeletal Deformity, Reports Hx Musculoskeletal Trauma Psychiatric Medical History: Denies: Hx Depression Traumatic Medical History: Reports: Hx Fractures Past Surgical History: Reports: Hx Abdominal Surgery - had here, colon, Hx Bowel Surgery, Hx Herniorrhaphy, Hx Pacemaker, Hx Pancreatic Surgery, Hx Testicular Surgery, Other - Partial colectomy - Immunizations Immunizations up to date: Yes Hx Diphtheria, Pertussis, Tetanus Vaccination: Yes Hx Pneumococcal Vaccination: 11/09/08 Review of Systems - Review of Systems Constitutional: No symptoms reported. denies: Chills, Fever EENT: No symptoms reported Cardiovascular: No symptoms reported. denies: Chest pain Respiratory: No symptoms reported. denies: Cough Gastrointestinal: Abdominal pain. denies: Nausea, Vomiting Genitourinary: Dysuria, Flank pain, Hematuria Male Genitourinary: No symptoms reported Musculoskeletal: Back pain Skin: No symptoms reported Hematologic/Lymphatic: No symptoms reported Neurological/Psychological: No symptoms reported Physical Exam - Vital signs Vitals: Temp Pulse Resp BP Pulse Ox 97.8 F 63 20 157/75 H 98 05/28/20 11:30 05/28/20 11:30 05/28/20 11:30 05/28/20 11:30 05/28/20 11:30 - General General appearance: Appears well, Alert In distress: None - HEENT Head: Normocephalic, Atraumatic Eyes: Normal Conjunctiva: Normal Nasal: Normal Mouth/Lips: Normal Mucous membranes: Normal Neck: Normal, Supple. No: Lymphadenopathy - Respiratory Respiratory status: No respiratory distress Chest status: Nontender Breath sounds: Normal. No: Rales, Rhonchi, Stridor, Wheezing Chest palpation: Normal - Cardiovascular Rhythm: Regular Heart sounds: S1 appreciated, S2 appreciated - Abdominal Inspection: Normal Distension: No distension Bowel sounds: Normal Tenderness: Tender - Left lower quadrant tenderness Organomegaly: No organomegaly - Genitourinary Inspection: Normal Tenderness: Testicle tender - Left testicle Cremasteric reflex: Normal Scrotum: Normal. No: Swelling, Redness, Hot to touch - Back Back: CVA tenderness - Left flank - Extremities General upper extremity: Normal inspection, Normal strength General lower extremity: Normal inspection, Normal strength - Neurological Neuro grossly intact: Yes Cognition: Normal [place] Coma Scale Eye Opening: Spontaneous Angela Coma Scale Verbal: Oriented [place] Coma Scale Motor: Obeys Commands [place] Coma Scale Total: 15 - Psychological Associated symptoms: Normal affect, Normal mood - Skin Skin Temperature: Warm Skin Moisture: Dry Skin Color: Normal Course - Re-evaluation Re-evalutation: 05/28/20 12:05 Patient with left flank pain that radiates around to left side of abdomen and into the groin. Patient has a history of known left-sided ureteral stone with stent placement. Patient with hematuria. Patient does have follow-up with urologist at 230 today for stent removal. Consulted with Dr. Short regarding patient management, agrees with plan to evaluate patient with basic labs with likely discharge so that patient can still make his appointment at 230 to see his urologist. 05/28/20 13:[address] Back who recommends culturing his urine and advises sending him to the office for his follow-up appointment today so he can have his stent removed. Patient is agreeable with this discharge plan of care. - Vital Signs Vital signs: Temp Pulse Resp BP Pulse Ox 97.8 F 63 20 157/75 H 98 05/28/20 11:30 05/28/20 11:30 05/28/20 11:30 05/28/20 11:30 05/28/20 11:30 - Laboratory Result Diagrams: 05/28/20 11:40 05/28/20 11:40 Laboratory results interpreted by me: 05/28/20 05/28/20 05/28/20 11:40 11:40 11:40 RBC 3.58 L Hgb 10.6 L Hct 32.1 L RDW 14.2 H Plt Count 148 L Chloride 108 H BUN 25 H Creatinine 1.49 H Est GFR ( Amer) 55 L Est GFR (MDRD) Non-Af 46 L Urine Protein >=500 H Urine Glucose (UA) 50 H Urine Blood MODERATE H Urine Nitrite POSITIVE H Urine Urobilinogen 4.0 H Urine Ascorbic Acid 40 H Labs- All tests 24 hr 05/28/20 05/28/20 05/28/20 11:40 11:40 11:40 WBC 5.5 RBC 3.58 L Hgb 10.6 L Hct 32.1 L MCV 90 MCH 29.5 MCHC 32.9 RDW 14.2 H Plt Count 148 L Lymph % (Auto) 20.8 [place] % (Auto) 9.0 Eos % (Auto) 3.1 Baso % (Auto) 0.9 Absolute Neuts (auto) 3.6 Absolute Lymphs (auto) 1.1 Absolute Monos (auto) 0.5 Absolute Eos (auto) 0.2 Absolute Basos (auto) 0.1 Seg Neutrophils % 66.2 Sodium 137.9 Potassium 4.4 Chloride 108 H Carbon Dioxide 24 Anion Gap 6 BUN 25 H Creatinine 1.49 H Est GFR ( Amer) 55 L Est GFR (MDRD) Non-Af 46 L Glucose 100 Calcium 8.7 Total Bilirubin 0.5 Direct Bilirubin 0.0 Neonat Total Bilirubin Not Reportable Neonat Direct Bilirubin Not Reportable Neonat Indirect Bili Not Reportable AST 29 ALT 22 Alkaline Phosphatase 59 Total Protein 6.6 Albumin 3.8 Urine Color RED Urine Appearance TURBID Urine pH 5.0 Ur Specific [place] 1.026 Urine Protein >=500 H Urine Glucose (UA) 50 H Urine Ketones NEGATIVE Urine Blood MODERATE H Urine Nitrite POSITIVE H Urine Bilirubin NEGATIVE Urine Urobilinogen 4.0 H Ur Leukocyte Esterase NEGATIVE Urine WBC (Auto) >182 Urine RBC (Auto) >182 Urine Mucus (Auto) MOD Urine Ascorbic Acid 40 H Discharge - Discharge Clinical Impression: Flank pain, History of ureter stent UTI (urinary tract infection) Qualifiers: Urinary tract infection type: site unspecified Hematuria presence: with hematuria Qualified Code(s): N39.0 - Urinary tract infection, site not specified Condition: Stable Disposition: HOME, SELF-CARE Instructions: Flank Pain ([facility]), Rocephin ([facility]), Urinary Tract Infection ([facility]) Additional Instructions: Return immediately for any new or worsening symptoms Followup with Dr. Back's office for your 2:15 appointment Referrals: DU BACK MD [NO LOCAL MD] - 05/28/20 2:15 pm
[2020-05-28 12:09] LABS: ABSOLUTE BASOPHILS # (AUTO) 0.1 10^3/uL (0.0-0.2); ABSOLUTE EOSINOPHILS # (AUTO) 0.2 10^3/uL (0.0-0.6); ABSOLUTE LYMPHOCYTES (AUTO) 1.1 10^3/uL (0.5-4.7); ABSOLUTE MONOCYTES (AUTO) 0.5 10^3/uL (0.1-1.4); ABSOLUTE NEUT (AUTO) 3.6 10^3/uL (1.7-8.2); BASOPHILS % (AUTO) 0.9 % (0-2); EOSINOPHILS % (AUTO) 3.1 % (0-6); HEMATOCRIT 32.1 % (37.9-51.0); HEMOGLOBIN 10.6 g/dL (13.5-17.0); LYMPHOCYTES % (AUTO) 20.8 % (13-45); MEAN CORPUSCULAR HEMOGLOBIN 29.5 pg (27.0-33.4); MEAN CORPUSCULAR HGB CONC 32.9 g/dL (32.0-36.0); MEAN CORPUSCULAR VOLUME 90 fl (80-97); PLATELET COUNT 148 10^3/uL (150-450); RED BLOOD COUNT 3.58 10^6/uL (4.35-5.55); RED CELL DISTRIBUTION WIDTH 14.2 % (11.5-14.0); SEGMENTED NEUTROPHILS % (AUTO) 66.2 % (42-78); TOTAL CELLS COUNTED % (AUTO) 100 %; WHITE BLOOD COUNT 5.5 10^3/uL (4.0-10.5)
[2020-05-28 12:15] LABS: ALBUMIN 3.8 g/dL (3.5-5.0); ALKALINE PHOSPHATASE 59 U/L (38-126); ANION GAP 6 (5-19); ASPARTATE AMINO TRANSFERASE 29 U/L (17-59); BILIRUBIN,TOTAL 0.5 mg/dL (0.2-1.3); BLOOD UREA NITROGEN 25 mg/dL (7-20); CALCIUM 8.7 mg/dL (8.4-10.2); CARBON DIOXIDE 24 mmol/L (22-30); CHLORIDE 108 mmol/L (98-107); GLUCOSE 100 mg/dL (75-110); POTASSIUM 4.4 mmol/L (3.6-5.0); TOTAL PROTEIN 6.6 g/dL (6.3-8.2)
[2020-05-28 12:42] LABS: BILIRUBIN,URINE NEGATIVE (NEGATIVE); GLUCOSE, URINE 50 mg/dL (NEGATIVE); KETONES,URINE NEGATIVE (NEGATIVE); LEUKOCYTE ESTERASE,URINE NEGATIVE (NEGATIVE); NITRITE,URINE POSITIVE (NEGATIVE); PROTEIN,URINE >=500 mg/dL (NEGATIVE); URINE SPECIFIC GRAVITY 1.026
[2020-05-28 12:43] LABS: APPEARANCE,URINE TURBID; COLOR,URINE RED
[2020-05-28] MEDS ORDERED: CEFTRIAXONE 1 GM/D5W RTU 1 GM/50 ML RTUPB IV ONE (13:04)
== END 2020-05-28 13:52 | disposition home or self-care (01) ==
LOC: ER 11:20
DX: N39.0 Urinary tract infection, site not specified (principal); R10.9 Unspecified abdominal pain; R31.9 Hematuria, unspecified; R30.0 Dysuria; F17.200 Nicotine dependence, unspecified, uncomplicated; I10 Essential (primary) hypertension; E11.9 Type 2 diabetes mellitus without complications; Z87.442 Personal history of urinary calculi
CPT/HCPCS: 99284; 96365; 36415; 87086; 85025; 80053; 81001; J0696

== ENCOUNTER 2020-06-07 11:32 | Observation (INO) | payer OTHER, MEDICARE ==
[2020-06-07 11:51] LABS: ABSOLUTE BASOPHILS # (AUTO) 0.1 10^3/uL (0.0-0.2); ABSOLUTE EOSINOPHILS # (AUTO) 0.1 10^3/uL (0.0-0.6); ABSOLUTE LYMPHOCYTES (AUTO) 1.1 10^3/uL (0.5-4.7); ABSOLUTE MONOCYTES (AUTO) 0.4 10^3/uL (0.1-1.4); ABSOLUTE NEUT (AUTO) 3.8 10^3/uL (1.7-8.2); EOSINOPHILS % (AUTO) 2.1 % (0-6); HEMOGLOBIN 10.5 g/dL (13.5-17.0); LYMPHOCYTES % (AUTO) 19.9 % (13-45); MEAN CORPUSCULAR HEMOGLOBIN 29.3 pg (27.0-33.4); MEAN CORPUSCULAR HGB CONC 32.7 g/dL (32.0-36.0); MEAN CORPUSCULAR VOLUME 90 fl (80-97); MONOCYTES % (AUTO) 6.8 % (3-13); PLATELET COUNT 160 10^3/uL (150-450); RED BLOOD COUNT 3.58 10^6/uL (4.35-5.55); RED CELL DISTRIBUTION WIDTH 14.1 % (11.5-14.0); SEGMENTED NEUTROPHILS % (AUTO) 70.2 % (42-78); TOTAL CELLS COUNTED % (AUTO) 100 %; WHITE BLOOD COUNT 5.5 10^3/uL (4.0-10.5)
[2020-06-07 12:09] LABS: ALKALINE PHOSPHATASE 59 U/L (38-126); ASPARTATE AMINO TRANSFERASE 32 U/L (17-59); BILIRUBIN,TOTAL 0.6 mg/dL (0.2-1.3); BLOOD UREA NITROGEN 17 mg/dL (7-20); CALCIUM 9.4 mg/dL (8.4-10.2); GLUCOSE 112 mg/dL (75-110); POTASSIUM 4.1 mmol/L (3.6-5.0); TOTAL PROTEIN 6.4 g/dL (6.3-8.2)
[2020-06-07 12:15] LABS: CARBON DIOXIDE 27 mmol/L (22-30); CHLORIDE 106 mmol/L (98-107)
[2020-06-07 12:20] LABS: ANION GAP 5 (5-19)
[2020-06-07 13:10] LABS: CREATINE KINASE MB 3.07 ng/mL (<4.55); TROPONIN I 0.034 ng/mL
[2020-06-07] MEDS ORDERED: NITROGLYCERIN 2% OINTMENT 1 GM PACKET TP ONE (15:28)
[2020-06-07] MEDS ORDERED: HYDRALAZINE HCL INJ/PF 20 MG/1 ML SDV IV ONE (15:28)
[2020-06-07] MEDS ORDERED: ASPIRIN 81 MG TABLET, CHEWABLE PO ONE (15:28)
--- NOTE | 2020-06-07 15:32 | ER Document Report ---
ED General - General Chief Complaint: High Blood Pressure Stated Complaint: DIZZY Time Seen by Provider: 06/07/20 15:08 Primary Care Provider: [facility] [Primary Care Provider] - Follow up as needed TRAVEL OUTSIDE OF THE [place] IN LAST 30 DAYS: No - HPI Patient complains to provider of: chest pain/hi bp Notes: 79 y/o presenting to ED complaining of elevated BP and chest tightness he denies sob, nausea, or diaphoresis he tells me he has a pacemaker in place but denies ever having a blockage diagnosed he has had a stress test previously but denies a history of catheterization he denies a h/o pe or dvt he denies leg swelling he notes his BP has been up for about a week but the chest tightness started this am he called leslie schofield (his pcp) and was seen but then referred to ED via EMS - Related Data Allergies/Adverse Reactions: latex Allergy (Verified 04/26/20 03:06) Past Medical History - Social History Smoking Status: Unknown if Ever Smoked Family History: None, Reviewed & Not Pertinent Patient has homicidal ideation: No - Past Medical History Cardiac Medical History: Reports: Hx Coronary Artery Disease, Hx Hypertension Denies: Hx Heart Attack Pulmonary Medical History: Reports: Hx COPD Denies: Hx Asthma, Hx Bronchitis, Hx Pneumonia, Hx Tuberculosis Neurological Medical History: Denies: Hx Cerebrovascular Accident, Hx Seizures Endocrine Medical History: Reports: Hx Diabetes Mellitus Type 2. Denies: Hx Diabetes Mellitus Type 1, Hx Hyperthyroidism, Hx Hypothyroidism Renal/ Medical History: Reports: Hx Kidney Stones, Hx Renal Insufficiency. Denies: Hx Peritoneal Dialysis GI Medical History: Reports: Hx Diverticulitis, Hx Gastroesophageal Reflux Disease, Hx Colonoscopy, Hx Endoscopy. Denies: Hx Cirrhosis, Hx Hepatitis Musculoskeletal Medical History: Reports Hx Arthritis, Denies Hx Gout, Reports Hx Musculoskeletal Deformity, Reports Hx Musculoskeletal Trauma Skin Medical History: Denies Hx Eczema, Denies Hx Psoriasis Psychiatric Medical History: Denies: Hx Depression Traumatic Medical History: Reports: Hx Fractures Infectious Medical History: Denies: Hx Hepatitis Past Surgical History: Reports: Hx Abdominal Surgery - had here, colon, Hx Bowel Surgery, Hx Herniorrhaphy, Hx Pacemaker, Hx Pancreatic Surgery, Hx Testicular Surgery, Other - Partial colectomy - Immunizations Immunizations up to date: Yes Hx Diphtheria, Pertussis, Tetanus Vaccination: Yes Hx Pneumococcal Vaccination: 11/09/08 Review of Systems - Review of Systems Constitutional: No symptoms reported EENT: No symptoms reported Cardiovascular: Chest pain Respiratory: No symptoms reported Gastrointestinal: No symptoms reported Genitourinary: No symptoms reported Male Genitourinary: No symptoms reported Musculoskeletal: No symptoms reported Skin: No symptoms reported Hematologic/Lymphatic: No symptoms reported Neurological/Psychological: No symptoms reported Physical Exam - Vital signs Vitals: Resp Pulse Ox 22 H 98 06/07/20 11:38 06/07/20 11:38 Interpretation: Normal - General General appearance: Appears well, Alert - HEENT Head: Normocephalic, Atraumatic Eyes: Normal Pupils: PERRL - Respiratory Respiratory status: No respiratory distress Chest status: Nontender Breath sounds: Normal Chest palpation: Normal - Cardiovascular Rhythm: Regular Heart sounds: Normal auscultation Murmur: No - Abdominal Inspection: Normal Distension: No distension Bowel sounds: Normal Tenderness: Nontender Organomegaly: No organomegaly - Back Back: Normal, Nontender - Extremities General upper extremity: Normal inspection, Nontender, Normal color, Normal ROM, Normal temperature General lower extremity: Normal inspection, Nontender, Normal color, Normal ROM, Normal temperature, Normal weight bearing. No: Caridad's sign - Neurological Neuro grossly intact: Yes Cognition: Normal Orientation: AAOx4 Angela Coma Scale Eye Opening: Spontaneous Angela Coma Scale Verbal: Oriented [place] Coma Scale Motor: Obeys Commands [place] Coma Scale Total: 15 Speech: Normal Motor strength normal: LUE, RUE, LLE, RLE Sensory: Normal - Psychological Associated symptoms: Normal affect, Normal mood - Skin Skin Temperature: Warm Skin Moisture: Dry Skin Color: Normal Course - Re-evaluation Re-evalutation: 06/07/20 15:30 well appearing but w/ concerning history for coronary pathology ekg acutely nonischemic will obtain cxr and admit to hospital for chest pain eval HEART score - 5 06/07/20 16:11 admit requested cxr clear bp improving whil ein ED - Vital Signs Vital signs: Temp Pulse Resp BP Pulse Ox 98 F 16 183/90 H 98 06/07/20 12:01 06/07/20 14:01 06/07/20 14:01 06/07/20 15:09 - Laboratory Result Diagrams: 06/07/20 11:37 06/07/20 11:37 Laboratory results interpreted by me: 06/07/20 06/07/20 11:37 11:37 RBC 3.58 L Hgb 10.5 L Hct 32.0 L RDW 14.1 H Glucose 112 H - Diagnostic Test Radiology reviewed: Image reviewed - EKG Interpretation by Me Additional EKG results interpreted by me: 06/07/20 15:31 NSR, rate of 64, PVC, first degree av block, RBBB, LVH, no acute ST segment changes Discharge - Discharge Clinical Impression: Hypertensive urgency Chest pain Qualifiers: Chest pain type: unspecified Qualified Code(s): R07.9 - Chest pain, unspecified Condition: Stable Disposition: ADMITTED OBSERVATION Admitting Provider: Luiz (Hospitalist) Unit Admitted: Telemetry [facility]errals: [facility] [Primary Care Provider] - Follow up as needed
--- NOTE | 2020-06-07 16:17 | RADIOLOGY REPORT (SQ) ---
EXAM DESCRIPTION: CHEST 2 VIEWS IMAGES COMPLETED DATE/TIME: 06/07/2020 3:54 pm REASON FOR STUDY: chest pain COMPARISON: None. EXAM PARAMETERS: NUMBER OF VIEWS: two views TECHNIQUE: Digital Frontal and Lateral radiographic views of the chest acquired. RADIATION DOSE: NA LIMITATIONS: none FINDINGS: LUNGS AND PLEURA: Hyperexpansion of the lungs. No infiltrate, effusion, or mass. MEDIASTINUM AND HILAR STRUCTURES: No masses or contour abnormalities. HEART AND VASCULAR STRUCTURES: Heart normal size. No evidence for failure. BONES: No acute findings. HARDWARE: Pacemaker. Right shoulder arthroplasty. OTHER: No other significant finding. IMPRESSION: Chronic lung changes with no acute finding. TECHNICAL DOCUMENTATION: JOB ID: [id number] 2010 [employer]- All Rights Reserved Reading location - IP/workstation name: [email or web address]
[2020-06-07] MEDS ORDERED: ALBUTEROL SULFATE 0.083% NEB 2.5 MG/3 ML AMPUL NEB PRN (17:21)
[2020-06-07] MEDS ORDERED: MAG HYDROX/AL HYDROX/SIMETH SUSP 30 ML UDCUP PO PRN (17:21)
[2020-06-07] MEDS ORDERED: ACETAMINOPHEN 325 MG TABLET PO PRN (17:21)
[2020-06-07] MEDS ORDERED: PROMETHAZINE HCL INJ 25 MG/1 ML VIAL IV PRN (17:21)
[2020-06-07] MEDS ORDERED: NITROGLYCERIN 0.4 MG/TAB 25 TAB/BOTTLE SL PRN (17:36)
[2020-06-07] MEDS ORDERED: HYDRALAZINE HCL INJ/PF 20 MG/1 ML SDV IV PRN (17:38)
--- NOTE | 2020-06-07 17:40 | PDOC H&P ---
History of Present Illness Admission Date/PCP: 06/07/20 16:25 [facility] Patient complains of: chest pressure History of Present Illness: KIERSTEN BEAN is a 79 year old male with a past medical history of CAD, hypertension, pacemaker, COPD, DM 2, kidney stones (recent removal of ureter stent) GERD, pancreatic mass who presented to the emergency department today from urgent care with complaint of chest pressure, headache, and uncontrolled blood pressure. Patient states that he is followed by Dr. Child. Evaluation emergency department revealed Blood pressure 205/103, otherwise normal vital signs, baseline anemia (hemoglobin 10.5), unremarkable chemistry, and indeterminate elevated troponin (0.034->0.047). EKG shows sinus rhythm with first-degree AV block, right bundle branch block, and frequent PVCs. Chest x-ray shows chronic lung changes without acute findings. Patient was provided nitroglycerin ointment, hydralazine, aspirin therapy. He is referred to the hospital service for further evaluation management of the above-stated complaints and findings. At the time of my exam, blood pressure improved to 157/97. Headache and chest pressure have resolved. Patient reports fatigue. Past Medical History Cardiac Medical History: Reports: Coronary Artery Disease, Hypertension, Other - Pacemaker Denies: Myocardial Infarction Pulmonary Medical History: Reports: Chronic Obstructive Pulmonary Disease (COPD) EENT Medical History: Reports: None Neurological Medical History: Denies: Ischemic CVA, Seizures Endocrine Medical History: Reports: Diabetes Mellitus Type 2 Denies: Diabetes Mellitus Type 1, Hypothyroidism Renal/ Medical History: Reports: None GI Medical History: Reports: Diverticulitis, Gastroesophageal Reflux Disease Denies: Cirrhosis, Hepatitis Musculoskeltal Medical History: Reports: Arthritis Denies: Gout Psychiatric Medical History: Denies: Depression Hematology: Reports: Anemia Denies: Bleeding Tendencies Infectious Medical History: Reports: None Past Surgical History Past Surgical History: Reports: Herniorrhaphy, Pacemaker, Other - Partial colectomy Social History Information Source: Patient Lives with: Alone Smoking Status: Unknown if Ever Smoked Frequency of Alcohol Use: Social Hx Recreational Drug Use: No Drugs: None Hx Prescription Drug Abuse: No Family History Family History: Reviewed & Not Pertinent Parental Family History Reviewed: Yes Children Family History Reviewed: Yes Sibling(s) Family History Reviewed.: Yes Medication/Allergy Home Medications: Amlodipine Besylate [Norvasc 10 mg Tablet] 10 mg PO DAILY 03/10/19 Atorvastatin Calcium [Lipitor 80 mg Tablet] 40 mg PO QHS 03/10/19 Carvedilol [Coreg 25 mg Tablet] 12.5 mg PO Q12 03/10/19 Cholecalciferol (Vitamin D3) [Vitamin D3] 1,000 unit PO DAILY 03/10/19 Cyanocobalamin (Vitamin B-12) [Vitamin B-12 1000 mcg Tablet] 1,000 mcg PO DAILY 03/10/19 Diclofenac Sodium [Voltaren] 2 gm TOP QIDP PRN 03/10/19 Isosorbide Mononitrate [Imdur 30 mg Tablet.er] 30 mg PO DAILY 03/10/19 Lactobacillus Acidophilus [Acidophilus Lactobacilli] 1 cap PO BID 03/10/19 Lipase/Protease/Amylase [Judson Dr 36,000 Units Capsule] 1 cap PO BIDP PRN 03/10/19 Lipase/Protease/Amylase [Creon Dr 36,000 Units Capsule] 2 cap PO MEALS 03/10/19 Lisinopril [Prinivil 40 mg Tablet] 40 mg PO DAILY 03/10/19 Loratadine [Claritin 10 mg Tablet] 10 mg PO DAILYP PRN 03/10/19 Melatonin 10 mg PO QHS 03/10/19 Multivitamin [Daily Multiple Vitamin] 1 tab PO DAILY 03/10/19 [place]-3 Fatty Acids/Fish Oil [Fish Oil 1,000 mg Capsule] 2 cap PO BID 03/10/19 Ranitidine HCl [Zantac 150 mg Tablet] 150 mg PO BIDP PRN 03/10/19 Trazodone HCl [Desyrel 50 mg Tablet] 50 mg PO HSP PRN 03/10/19 Nifedipine [Procardia XL 30 mg Tablet] 60 mg PO DAILY tab.er.24 03/11/19 Sucralfate [Carafate 1 gm Tablet] 1 gm PO QID tablet 03/11/19 Hydrocodone/Acetaminophen [Lorcet 5-325 mg Tablet] 1 each PO Q8H PRN #10 tablet 04/18/20 Tamsulosin HCl [Flomax] 0.4 mg PO DAILY 20 Days #20 cap.er.24h 04/18/20 Allergies/Adverse Reactions: latex Allergy (Verified 04/26/20 03:06) Review of Systems Constitutional: PRESENT: fatigue, headache(s). ABSENT: chills, fever(s), weight gain, weight loss Eyes: ABSENT: visual disturbances Ears: ABSENT: hearing changes Cardiovascular: PRESENT: as per HPI, chest pain. ABSENT: dyspnea on exertion, edema, orthropnea, palpitations Respiratory: ABSENT: cough, hemoptysis Gastrointestinal: ABSENT: abdominal pain, constipation, diarrhea, hematemesis, hematochezia, nausea, vomiting Genitourinary: ABSENT: dysuria, hematuria Musculoskeletal: ABSENT: joint swelling Integumentary: ABSENT: rash, wounds Neurological: ABSENT: abnormal gait, abnormal speech, confusion, dizziness, focal weakness, syncope Psychiatric: ABSENT: anxiety, depression, homidical ideation, suicidal ideation Endocrine: ABSENT: cold intolerance, heat intolerance, polydipsia, polyuria Hematologic/Lymphatic: ABSENT: easy bleeding, easy bruising Physical Exam Vital Signs: Temp Pulse Resp BP Pulse Ox 98 F 16 183/90 H 98 06/07/20 12:01 06/07/20 14:01 06/07/20 14:01 06/07/20 15:09 General appearance: PRESENT: no acute distress, cooperative, thin, well- developed Head exam: PRESENT: atraumatic, normocephalic Eye exam: PRESENT: conjunctiva pink, EOMI, PERRLA. ABSENT: scleral icterus Mouth exam: PRESENT: moist, tongue midline Teeth exam: PRESENT: poor dentation Neck exam: ABSENT: carotid bruit, JVD, lymphadenopathy, thyromegaly Respiratory exam: PRESENT: clear to auscultation venessa, symmetrical, unlabored. ABSENT: rales, rhonchi, wheezes Cardiovascular exam: PRESENT: RRR, +S1, +S2. ABSENT: diastolic murmur, rubs, systolic murmur Vascular exam: PRESENT: normal capillary refill GI/Abdominal exam: PRESENT: normal bowel sounds, soft. ABSENT: distended, guarding, mass, organolmegaly, rebound, tenderness Rectal exam: PRESENT: deferred Extremities exam: PRESENT: full ROM, +1 edema - RLE. ABSENT: calf tenderness, clubbing, pedal edema Musculoskeletal exam: PRESENT: ambulatory Neurological exam: PRESENT: alert, awake, oriented to person, oriented to place, oriented to time, oriented to situation, CN II-XII grossly intact. ABSENT: motor sensory deficit Psychiatric exam: PRESENT: appropriate affect, normal mood. ABSENT: homicidal ideation, suicidal ideation Skin exam: PRESENT: dry, intact, warm. ABSENT: cyanosis, rash Results Laboratory Results: 06/07/20 11:37 06/07/20 11:37 06/07/20 06/07/20 11:37 11:37 WBC 5.5 RBC 3.58 L Hgb 10.5 L Hct 32.0 L MCV 90 MCH 29.3 MCHC 32.7 RDW 14.1 H Plt Count 160 Seg Neutrophils % 70.2 Sodium 137.3 Potassium 4.1 Chloride 106 Carbon Dioxide 27 Anion Gap 5 BUN 17 Creatinine 1.11 Est GFR ( Amer) > 60 Glucose 112 H Calcium 9.4 Total Bilirubin 0.6 AST 32 Alkaline Phosphatase 59 Total Protein 6.4 Albumin 4.0 06/07/20 06/07/20 06/07/20 11:37 11:37 15:55 Creatine Kinase 83 CK-MB (CK-2) 3.07 Troponin I 0.034 0.047 Impressions: Chest X-Ray 06/07/20 00:00 IMPRESSION: Chronic lung changes with no acute finding. Assessment and Plan - Diagnosis (1) Chest pain Qualifiers: Chest pain type: unspecified Qualified Code(s): R07.9 - Chest pain, unspecified Is this a current diagnosis for this admission?: Yes Plan: Patient is admitted to the medical floor on continuous cardiac telemetry. He is placed on daily aspirin and statin therapy. Start therapeutic Lovenox. Sublingual nitroglycerin as needed Continue to trend troponins. Cardiology consulted; appreciate Dr. Maldonado's assistance. (2) Hypertensive urgency Is this a current diagnosis for this admission?: Yes Plan: Improved with management provided in the emergency department. 200/100 on admission; currently 157/97. No evidence of endorgan damage. We will resume patient's home medication regiment once reconciled. IV hydralazine as needed. Cardiac diet. (3) Hyperlipidemia Is this a current diagnosis for this admission?: Yes Plan: Daily atorvastatin. Cardiac diet. We will check lipid panel with a.m. lab work. (4) Reflux Is this a current diagnosis for this admission?: Yes Plan: Pepcid twice daily. Carafate with meals and at bedtime - Time Time Spent with patient: 35 or more minutes Medications reviewed and adjusted accordingly: Yes Anticipated Discharge Disposition: Home, Self Care Anticipated Discharge Timeframe: within 48 hours
--- NOTE | 2020-06-07 17:58 | EKG REPORT ---
SEVERITY:- ABNORMAL ECG - SINUS RHYTHM VENTRICULAR PREMATURE COMPLEX FIRST DEGREE AV BLOCK RIGHT BUNDLE BRANCH BLOCK CONSIDER LEFT VENTRICULAR HYPERTROPHY BORDERLINE INFERIOR Q WAVES : Confirmed by: Keila Calvin MD 07-Jun-2020 17:58:36
[2020-06-07 21:34] LABS: APPEARANCE,URINE CLEAR; BILIRUBIN,URINE NEGATIVE (NEGATIVE); COLOR,URINE YELLOW; GLUCOSE, URINE NEGATIVE (NEGATIVE); KETONES,URINE NEGATIVE (NEGATIVE); LEUKOCYTE ESTERASE,URINE NEGATIVE (NEGATIVE); NITRITE,URINE NEGATIVE (NEGATIVE); PROTEIN,URINE 100 mg/dL (NEGATIVE); URINE SPECIFIC GRAVITY 1.018; UROBILINOGEN,URINE NEGATIVE mg/dL (<2.0)
[2020-06-07] MEDS: FAMOTIDINE 20 MG TABLET PO SCH (21:41)
[2020-06-07] MEDS: SUCRALFATE 1 GM TABLET PO SCH (21:41)
[2020-06-07] MEDS: ENOXAPARIN SODIUM INJ 80 MG/0.8 ML DISP.SYRIN SUBCUT SCH (21:43)
[2020-06-07] MEDS ORDERED: ATORVASTATIN CALCIUM 80 MG TABLET PO SCH (22:00)
--- NOTE | 2020-06-07 22:58 | PDOC CONSULTATION ---
Consultation-Blank Consultation: CARDIOLOGY consultation by Dr. Keila Calvin on 06/07/2020. Patient seen at 3:30 PM. 60 minutes spent on this patient with more than 50% time spent in direct patient care REASON FOR CONSULTATION: Patient with a history of hypertension coronary artery disease with indeterminate troponin troponin and uncontrolled hypertension admission. CONSULT REQUESTING PROVIDER: Ms. Sanjuana Lau, [facility]ist physician group HISTORY of PRESENT ILLNESS: Patient is a 79-year-old male, who is a vague historian, states that he went to urgent care due to headache and chest pressure. His chest pressure lasted for about 10 to 15 minutes. He was found to have uncontrolled hypertension and was sent to the emergency room where his blood pressure was 205/103. With his medications given in the ER his blood pressures come down and his chest pressure resolved. His EKG shows no acute changes. But the troponin is indeterminate. He also has a history of coronary artery disease which is vague. He has no history of SC or anginal symptoms. He has no history of congestive heart failure. He states in the past he had severe decrease heart rate and dizziness and had a permanent pacemaker placed. He denies history of congestive heart failure. He also has a history of COPD and has quit smoking long time ago. He has a history of hypertension. He also supposedly has a history of chronic kidney disease but his kidney disease is normal. There is no fever sore throat altered taste sensation or loss of smell sensation. There is no history of TIA or CVA. He has a history of chronic kidney disease, but is GFR at present is greater than 60 and normal. He denies any palpitations or syncope. Past Medical History Cardiac Medical History: Reports: Coronary Artery Disease, Hypertension, Other - Pacemaker Denies: Myocardial Infarction Pulmonary Medical History: Reports: Chronic Obstructive Pulmonary Disease (COPD) EENT Medical History: Reports: None Neurological Medical History: Denies: Ischemic CVA, Seizures Endocrine Medical History: Reports: Diabetes Mellitus Type 2 Denies: Diabetes Mellitus Type 1, Hypothyroidism Renal/ Medical History: Reports: None GI Medical History: Reports: Diverticulitis, Gastroesophageal Reflux Disease Denies: Cirrhosis, Hepatitis Musculoskeltal Medical History: Reports: Arthritis Denies: Gout Psychiatric Medical History: Denies: Depression Hematology: Reports: Anemia Denies: Bleeding Tendencies Infectious Medical History: Reports: None Past Surgical History Past Surgical History: Reports: Herniorrhaphy, Pacemaker, Other - Partial colectomy Social History Information Source: Patient Lives with: Alone Smoking Status: Unknown if Ever Smoked Frequency of Alcohol Use: Social Hx Recreational Drug Use: No Drugs: None Hx Prescription Drug Abuse: No Family History Family History: Reviewed & Not Pertinent Parental Family History Reviewed: Yes Children Family History Reviewed: Yes Sibling(s) Family History Reviewed.: Yes Medication/Allergy Home Medications: Amlodipine Besylate [Norvasc 10 mg Tablet] 10 mg PO DAILY 03/10/19 Atorvastatin Calcium [Lipitor 80 mg Tablet] 40 mg PO QHS 03/10/19 Carvedilol [Coreg 25 mg Tablet] 12.5 mg PO Q12 03/10/19 Cholecalciferol (Vitamin D3) [Vitamin D3] 1,000 unit PO DAILY 03/10/19 Cyanocobalamin (Vitamin B-12) [Vitamin B-12 1000 mcg Tablet] 1,000 mcg PO DAILY 03/10/19 Diclofenac Sodium [Voltaren] 2 gm TOP QIDP PRN 03/10/19 Isosorbide Mononitrate [Imdur 30 mg Tablet.er] 30 mg PO DAILY 03/10/19 Lactobacillus Acidophilus [Acidophilus Lactobacilli] 1 cap PO BID 03/10/19 Lipase/Protease/Amylase [[place] 36,000 Units Capsule] 1 cap PO BIDP PRN 03/10/19 Lipase/Protease/Amylase [[place] 36,000 Units Capsule] 2 cap PO MEALS 03/10/19 Lisinopril [Prinivil 40 mg Tablet] 40 mg PO DAILY 03/10/19 Loratadine [Claritin 10 mg Tablet] 10 mg PO DAILYP PRN 03/10/19 Melatonin 10 mg PO QHS 03/10/19 Multivitamin [Daily Multiple Vitamin] 1 tab PO DAILY 03/10/19 [place]-3 Fatty Acids/Fish Oil [Fish Oil 1,000 mg Capsule] 2 cap PO BID 03/10/19 Ranitidine HCl [Zantac 150 mg Tablet] 150 mg PO BIDP PRN 03/10/19 Trazodone HCl [Desyrel 50 mg Tablet] 50 mg PO HSP PRN 03/10/19 Nifedipine [Procardia XL 30 mg Tablet] 60 mg PO DAILY tab.er.24 03/11/19 Sucralfate [Carafate 1 gm Tablet] 1 gm PO QID tablet 03/11/19 Hydrocodone/Acetaminophen [Lorcet 5-325 mg Tablet] 1 each PO Q8H PRN #10 tablet 04/18/20 Tamsulosin HCl [Flomax] 0.4 mg PO DAILY 20 Days #20 cap.er.24h 04/18/20 Allergies/Adverse Reactions: latex Allergy (Verified 04/26/20 03:06) Current Medications Generic Name Dose Route Start Last Admin Trade Name Freq PRN Reason Stop Dose Admin Acetaminophen 650 mg 06/07/20 17:21 Tylenol 325 Mg Tablet PO 07/07/20 17:20 Q4HP PRN FOR PAIN OR TEMP Al Hydrox/Mg Hydrox/Simethicone 30 ml 06/07/20 17:21 Maalox Plus Susp 30 Udcup PO 07/07/20 17:20 Q6HP PRN HEARTBURN Albuterol 2.5 mg 06/07/20 17:21 Ventolin 0.083% Neb 2.5 Mg/3 Ml Ampul NEB 07/07/20 17:20 RTQ6HP PRN SHORTNESS OF BREATH Aspirin 81 mg 06/08/20 10:00 Aspirin 81 Mg Chewable Tablet PO 07/08/20 09:59 DAILY TAMMY Atorvastatin Calcium 80 mg 06/07/20 22:00 06/07/20 21:41 Lipitor 80 Mg Tablet PO 07/07/20 21:59 80 mg QHS TAMMY Administration Docusate Sodium 100 mg 06/08/20 10:00 Colace 100 Mg Capsule PO 07/08/20 09:59 DAILY TAMMY Enoxaparin Sodium 80 mg 06/07/20 22:00 06/07/20 21:43 Lovenox Inj 80 Mg/0.8 Ml Disp.Syrin SUBCUT 07/07/20 21:59 Not Given Q12 TAMMY Famotidine 20 mg 06/07/20 22:00 06/07/20 21:41 Pepcid 20 Mg Tablet PO 07/07/20 21:59 20 mg Q12 TAMMY Administration Hydralazine HCl 10 mg 06/07/20 17:38 Apresoline Inj/Pf 20 Mg/1 Ml Sdv IV 07/07/20 17:37 Q6HP PRN SBP>180, DBP>100 Nitroglycerin 1 tab 06/07/20 17:36 Nitrostat 0.4 Mg (1/150 Gr) Tabs Bottle SL 07/07/20 17:35 Q5MP PRN FOR CHEST PAIN Promethazine HCl 6.25 mg 06/07/20 17:21 Phenergan Inj 25 Mg/1 Ml Vial IV 07/07/20 17:20 Q4HP PRN FOR NAUSEA/VOMITING Sucralfate 1 gm 06/07/20 22:00 06/07/20 21:41 Carafate 1 Gm Tablet PO 07/07/20 21:59 1 gm ACHS TAMMY Administration Discontinued Medications Generic Name Dose Route Start Last Admin Trade Name Donnieq PRN Reason Stop Dose Admin Aspirin 324 mg 06/07/20 15:28 06/07/20 15:37 Aspirin 81 Mg Chewable Tablet PO 06/07/20 15:29 324 mg NOW ONE Administration Hydralazine HCl 10 mg 06/07/20 15:28 06/07/20 15:37 Apresoline Inj/Pf 20 Mg/1 Ml Sdv IV 06/07/20 15:29 10 mg NOW ONE Administration Nitroglycerin 1 gm 06/07/20 15:28 06/07/20 15:37 Nitrol 2% Ointment 1gm Packet TP 06/07/20 15:29 1 gm NOW ONE Administration Review of Systems Constitutional: PRESENT: fatigue, headache(s). ABSENT: chills, fever(s), weight gain, weight loss Eyes: ABSENT: visual disturbances Ears: ABSENT: hearing changes Cardiovascular: PRESENT: as per HPI, chest pain. ABSENT: dyspnea on exertion, edema, orthropnea, palpitations Respiratory: ABSENT: cough, hemoptysis Gastrointestinal: ABSENT: abdominal pain, constipation, diarrhea, hematemesis, hematochezia, nausea, vomiting Genitourinary: ABSENT: dysuria, hematuria Musculoskeletal: ABSENT: joint swelling Integumentary: ABSENT: rash, wounds Neurological: ABSENT: abnormal gait, abnormal speech, confusion, dizziness, focal weakness, syncope Psychiatric: ABSENT: anxiety, depression, homidical ideation, suicidal ideation Endocrine: ABSENT: cold intolerance, heat intolerance, polydipsia, polyuria Hematologic/Lymphatic: ABSENT: easy bleeding, easy bruising PHYSICAL EXAMINATION: The patient is a frail build. He is in no acute distress. Selected Entries 06/07/20 16:54 Heart Rate ( 75 Monitors) Respiratory 17 Rate Blood Pressure 156/97 H Blood Pressure 116 Mean O2 Sat by Pulse 99 Oximetry On room air Head: Head is atraumatic and normocephalic. EYES: Pupils are equal round regular reactive to light accommodation. Extraocular movements are normal, there is no conjunctival pallor, and no scleral icterus. EARS: Tympanic membranes are intact external auditory canals are clear. NOSE: There is no inflammation of the nasal mucous membrane there is no deviated nasal septum. MOUTH: Mucous membranes of mouth and tongue are moist, there is no ulcers in the mouth or tongue, and no bleeding from the gums. THROAT: There is no redness of the oropharynx, no exudate seen. SKIN: There is no petechia or ecchymosis. There is no rashes or lesions. NECK: Supple. There is no JVD. Carotids are equal there is no bruit. There is no lymphadenopathy. There is no goiter. Trachea central LUNGS: There is diminished air entry and prolonged expiration. Clear to auscultation bilaterally, no wheezes, rales or rhonchi. On percussion there is hyperresonance although there is no chest wall tenderness HEART: S1 and S2 are heard. S1 is of normal intensity, there is no S3 or S4 gallops. There is a systolic murmur the left sternal border and the apex. There is no rub. ABDOMEN: Normoactive bowel sounds, soft, nontender, no masses, no rebound, no guarding. There is no hepatosplenomegaly. EXTREMITIES: Femorals are slightly diminished. There is no femoral bruits. Leg pulses are diminished. There is no pedal edema. There is no DVT or cellulitis. There is no cyanosis or clubbing. There is no calf tenderness. NEUROLOGICAL the patient is awake alert oriented 3 with no focal deficits. PSYCHIATRIC: The patient judgment and insight are intact his affect is normal. Labs- Entire Visit 06/07/20 06/07/20 06/07/20 11:37 11:37 11:37 WBC 5.5 RBC 3.58 L Hgb 10.5 L Hct 32.0 L MCV 90 MCH 29.3 MCHC 32.7 RDW 14.1 H Plt Count 160 Lymph % (Auto) 19.9 [place] % (Auto) 6.8 Eos % (Auto) 2.1 Baso % (Auto) 1.0 Absolute Neuts (auto) 3.8 Absolute Lymphs (auto) 1.1 Absolute Monos (auto) 0.4 Absolute Eos (auto) 0.1 Absolute Basos (auto) 0.1 Seg Neutrophils % 70.2 Sodium 137.3 Potassium 4.1 Chloride 106 Carbon Dioxide 27 Anion Gap 5 BUN 17 Creatinine 1.11 Est GFR ( Amer) > 60 Est GFR (MDRD) Non-Af > 60 Glucose 112 H Calcium 9.4 Total Bilirubin 0.6 Direct Bilirubin 0.0 Neonat Total Bilirubin Not Reportable Neonat Direct Bilirubin Not Reportable Neonat Indirect Bili Not Reportable AST 32 ALT 28 Alkaline Phosphatase 59 Creatine Kinase 83 CK-MB (CK-2) Troponin I Total Protein 6.4 Albumin 4.0 Urine Color Urine Appearance Urine pH Ur Specific [place] Urine Protein Urine Glucose (UA) Urine Ketones Urine Blood Urine Nitrite Urine Bilirubin Urine Urobilinogen Ur Leukocyte Esterase Urine WBC (Auto) Urine RBC (Auto) U Hyaline Cast (Auto) Urine Mucus (Auto) Urine Ascorbic Acid 06/07/20 06/07/20 06/07/20 11:37 15:55 18:20 WBC RBC Hgb Hct MCV MCH MCHC RDW Plt Count Lymph % (Auto) [place] % (Auto) Eos % (Auto) Baso % (Auto) Absolute Neuts (auto) Absolute Lymphs (auto) Absolute Monos (auto) Absolute Eos (auto) Absolute Basos (auto) Seg Neutrophils % Sodium Potassium Chloride Carbon Dioxide Anion Gap BUN Creatinine Est GFR ( Amer) Est GFR (MDRD) Non-Af Glucose Calcium Total Bilirubin Direct Bilirubin Neonat Total Bilirubin Neonat Direct Bilirubin Neonat Indirect Bili AST ALT Alkaline Phosphatase Creatine Kinase CK-MB (CK-2) 3.07 Troponin I 0.034 0.047 0.040 Total Protein Albumin Urine Color Urine Appearance Urine pH Ur Specific [place] Urine Protein Urine Glucose (UA) Urine Ketones Urine Blood Urine Nitrite Urine Bilirubin Urine Urobilinogen Ur Leukocyte Esterase Urine WBC (Auto) Urine RBC (Auto) U Hyaline Cast (Auto) Urine Mucus (Auto) Urine Ascorbic Acid 06/07/20 06/07/20 21:18 23:10 WBC RBC Hgb Hct MCV MCH MCHC RDW Plt Count Lymph % (Auto) [place] % (Auto) Eos % (Auto) Baso % (Auto) Absolute Neuts (auto) Absolute Lymphs (auto) Absolute Monos (auto) Absolute Eos (auto) Absolute Basos (auto) Seg Neutrophils % Sodium Potassium Chloride Carbon Dioxide Anion Gap BUN Creatinine Est GFR ( Amer) Est GFR (MDRD) Non-Af Glucose Calcium Total Bilirubin Direct Bilirubin Neonat Total Bilirubin Neonat Direct Bilirubin Neonat Indirect Bili AST ALT Alkaline Phosphatase Creatine Kinase CK-MB (CK-2) Troponin I 0.036 Total Protein Albumin Urine Color YELLOW Urine Appearance CLEAR Urine pH 5.0 Ur Specific [place] 1.018 Urine Protein 100 H Urine Glucose (UA) NEGATIVE Urine Ketones NEGATIVE Urine Blood NEGATIVE Urine Nitrite NEGATIVE Urine Bilirubin NEGATIVE Urine Urobilinogen NEGATIVE Ur Leukocyte Esterase NEGATIVE Urine WBC (Auto) 1 Urine RBC (Auto) 0 U Hyaline Cast (Auto) 3 Urine Mucus (Auto) RARE Urine Ascorbic Acid 40 H Chest X-Ray 06/07/20 00:00 IMPRESSION: Chronic lung changes with no acute finding. EKG: SINUS RHYTHM [VPC] . VENTRICULAR PREMATURE COMPLEX [1AVB] . FIRST DEGREE AV BLOCK [RBBB] . RIGHT BUNDLE BRANCH BLOCK [LVHSR] . CONSIDER LEFT VENTRICULAR HYPERTROPHY EKG reviewed and interpreted by me personally.] IMPRESSION/RECOMMENDATION: 1. Chest pain: Secondary to patient's uncontrolled hypertension. Patient's EKG shows no acute changes. The patient's troponin is indeterminate which also could be secondary to the patient's uncontrolled hypertension 2. Uncontrolled hypertension: At present blood pressure much better. There is no chest pain headaches at present. Continue antihypertensives. 3. Diabetes mellitus: Continue antidiabetic medication. 4. Coronary artery disease: This very vague history by patient. He denies history of SC or any interventional procedures done on his coronary arteries. 5. History of permanent pacemaker for bradycardia symptomatic in the past. Will get records from [facility]. 6. COPD: Continue anti-COPD medication. 7. History of chronic kidney disease. This is by history, but the patient's GFR is greater than 60 this admission. 8. Systolic murmur: Most likely mitral regurgitation and tricuspid regurgitation. We will try to get records from [facility]. Medications reviewed. Medical regimen management plan discussed with the attending provider of the case. 60 minutes spent on the patient with more than 50% time spent in direct patient care. History of chronic kidney disease. At present the patient GFR is greater than 60 and normal.
[2020-06-08 06:21] LABS: HEMATOCRIT 33.5 % (37.9-51.0); HEMOGLOBIN 11.2 g/dL (13.5-17.0); MEAN CORPUSCULAR HEMOGLOBIN 29.2 pg (27.0-33.4); MEAN CORPUSCULAR HGB CONC 33.3 g/dL (32.0-36.0); MEAN CORPUSCULAR VOLUME 88 fl (80-97); PLATELET COUNT 156 10^3/uL (150-450); RED BLOOD COUNT 3.82 10^6/uL (4.35-5.55); WHITE BLOOD COUNT 5.9 10^3/uL (4.0-10.5)
[2020-06-08 06:43] LABS: BLOOD UREA NITROGEN 19 mg/dL (7-20); CALCIUM 9.1 mg/dL (8.4-10.2); CHOLESTEROL 111.87 mg/dL (0-200); GLUCOSE 114 mg/dL (75-110); POTASSIUM 3.9 mmol/L (3.6-5.0); TRIGLYCERIDES 72 mg/dL (<150)
[2020-06-08 06:48] LABS: ANION GAP 7 (5-19); CARBON DIOXIDE 26 mmol/L (22-30); CHLORIDE 104 mmol/L (98-107)
[2020-06-08 06:54] LABS: DIRECT LDL 51 mg/dL (<100)
[2020-06-08 07:46] LABS: APPEARANCE,URINE CLEAR; BILIRUBIN,URINE NEGATIVE (NEGATIVE); COLOR,URINE YELLOW; GLUCOSE, URINE NEGATIVE (NEGATIVE); KETONES,URINE NEGATIVE (NEGATIVE); LEUKOCYTE ESTERASE,URINE NEGATIVE (NEGATIVE); NITRITE,URINE NEGATIVE (NEGATIVE); PROTEIN,URINE 30 mg/dL (NEGATIVE); URINE SPECIFIC GRAVITY 1.011; UROBILINOGEN,URINE NEGATIVE mg/dL (<2.0)
[2020-06-08] MEDS: SUCRALFATE 1 GM TABLET PO SCH ×2 (09:39→12:07)
[2020-06-08] MEDS: FAMOTIDINE 20 MG TABLET PO SCH (09:39)
[2020-06-08] MEDS: ENOXAPARIN SODIUM INJ 80 MG/0.8 ML DISP.SYRIN SUBCUT SCH (09:40)
[2020-06-08] MEDS ORDERED: ISOSORBIDE MONONITRATE 30 MG TAB.ER.24H PO SCH (10:00)
[2020-06-08] MEDS ORDERED: CARVEDILOL 12.5 MG TABLET PO SCH (10:00)
[2020-06-08] MEDS ORDERED: NIFEDIPINE 30 MG TAB.ER.24 PO SCH (10:00)
[2020-06-08] MEDS ORDERED: ASPIRIN 81 MG TABLET, CHEWABLE PO SCH (10:00)
[2020-06-08] MEDS ORDERED: DOCUSATE SODIUM 100 MG CAPSULE PO SCH (10:00)
[2020-06-08] MEDS ORDERED: LISINOPRIL 10 MG TABLET PO SCH (10:00)
[2020-06-08 12:08] VITALS: BP 146/82
[2020-06-08] MEDS ORDERED: TAMSULOSIN HCL 0.4 MG CAP.SR.24H PO SCH (18:00)
--- NOTE | 2020-06-10 15:57 | PDOC DISCHARGE SUMMARY ---
Impression - Admit/DC Date/PCP Admission Date/Primary Care Provider: 06/07/20 16:25 [facility] Discharge Date: 06/08/20 - Discharge Diagnosis (1) Chest pain Is this a current diagnosis for this admission?: Yes (2) Hypertensive urgency Is this a current diagnosis for this admission?: Yes (3) Hyperlipidemia Is this a current diagnosis for this admission?: Yes (4) Reflux Is this a current diagnosis for this admission?: Yes - Additional Information Discharge Diet: Cardiac Discharge Activity: Activity As Tolerated, Balance Activity w/Rest, Weigh Daily Referrals: MEEK TERRY MD [ACTIVE STAFF] - 06/12/20 1:00 [facility] [Primary Care Provider] - Follow up as needed (NM WILL CONTACT THE PATIENT WITH FOLLOW UP APPT.) Prescriptions: Aspirin [Aspirin 81 mg Chewable Tablet] 81 mg PO DAILY #90 tab.chew Home Medications: Atorvastatin Calcium [Lipitor 80 mg Tablet] 40 mg PO QHS 03/10/19 Cyanocobalamin (Vitamin B-12) [Vitamin B-12 1000 mcg Tablet] 1,000 mcg PO DAILY 03/10/19 Lactobacillus Acidophilus [Acidophilus Lactobacilli] 1 cap PO BID 03/10/19 Lipase/Protease/Amylase [Judson Beltran 36,000 Units Capsule] 1 cap PO BIDP PRN 12/28 Lipase/Protease/Amylase [Judson Beltran 36,000 Units Capsule] 2 cap PO MEALS 03/10/19 Lisinopril [Prinivil 40 mg Tablet] 40 mg PO DAILY 03/10/19 Loratadine [Claritin 10 mg Tablet] 10 mg PO DAILYP PRN 03/10/19 Trazodone HCl [Desyrel 50 mg Tablet] 50 mg PO HSP PRN 03/10/19 Acetaminophen [Tylenol 325 mg Tablet] 650 mg PO Q4HP PRN tablet 06/08/20 Apixaban [Eliquis 5 mg Tablet] 5 mg PO BID 06/08/20 Aspirin [Aspirin 81 mg Chewable Tablet] 81 mg PO DAILY #90 tab.chew 06/08/20 Carvedilol [Coreg 6.25 mg Tablet] 6.25 mg PO Q12 06/08/20 Cyclobenzaprine HCl 5 mg PO Q8HP PRN 06/08/20 Hydralazine HCl [Apresoline 10 mg Tablet] 10 mg PO Q8 06/08/20 Pantoprazole Sodium [Protonix [address] Tablet] 40 mg PO QAM 06/08/20 History of Present Illiness History of Present Illness: KIERSTEN BEAN is a 79 year old male with a past medical history of CAD, hypertension, pacemaker, COPD, DM 2, kidney stones (recent removal of ureter stent) GERD, pancreatic mass who presented to the emergency department today from urgent care with complaint of chest pressure, headache, and uncontrolled blood pressure. Patient states that he is followed by Dr. Child. Evaluation emergency department revealed Blood pressure 205/103, otherwise normal vital signs, baseline anemia (hemoglobin 10.5), unremarkable chemistry, and indeterminate elevated troponin (0.034->0.047). EKG shows sinus rhythm with first-degree AV block, right bundle branch block, and frequent PVCs. Chest x-ray shows chronic lung changes without acute findings. Patient was provided nitroglycerin ointment, hydralazine, aspirin therapy. He is referred to the hospital service for further evaluation management of the above-stated complaints and findings. At the time of my exam, blood pressure improved to 157/97. Headache and chest pressure have resolved. Patient reports fatigue. Hospital Course Hospital Course: The patient was admitted to the medical floor on continuous cardiac telemetry; no abnormal/acute rhythms were identified. Laboratory evaluation revealed unremarkable CBC, chemistry, indeterminate but negative troponins x5, A1c 5.4%, acceptable lipid panel, and normal TSH. Blood pressure control is achieved through resumption of his home medication regiment. Patient had no further episodes of chest discomfort during his admission. Patient's primary accountant machine processing, Dr. Maldonado, was consulted; determined that the patient's chest discomfort was secondary to uncontrolled hypertension. He is cleared the patient for discharge with close outpatient cardiology follow-up. Physical Exam Vital Signs: Temp Pulse Resp BP Pulse Ox 98.8 F 74 16 146/82 H 97 06/08/20 12:06/08/20 12:06/08/20 12:06/08/20 12:06/08/20 12:07 General appearance: PRESENT: no acute distress, cooperative, thin, well- developed, well-nourished Head exam: PRESENT: atraumatic, normocephalic Eye exam: PRESENT: conjunctiva pink, EOMI, PERRLA. ABSENT: scleral icterus Mouth exam: PRESENT: moist, tongue midline Teeth exam: PRESENT: poor dentation Neck exam: ABSENT: carotid bruit, JVD, lymphadenopathy, thyromegaly Respiratory exam: PRESENT: clear to auscultation venessa, symmetrical, unlabored. ABSENT: rales, rhonchi, wheezes Cardiovascular exam: PRESENT: RRR, +S1, +S2. ABSENT: diastolic murmur, rubs, systolic murmur Pulses: PRESENT: normal dorsalis pedis pul Vascular exam: PRESENT: normal capillary refill Extremities exam: PRESENT: full ROM. ABSENT: calf tenderness, clubbing, pedal edema Neurological exam: PRESENT: alert, awake, oriented to person, oriented to place, oriented to time, oriented to situation, CN II-XII grossly intact. ABSENT: motor sensory deficit Psychiatric exam: PRESENT: appropriate affect, normal mood. ABSENT: homicidal ideation, suicidal ideation Skin exam: PRESENT: dry, intact, warm. ABSENT: cyanosis, rash Results Laboratory Results: WBC 5.9 10^3/uL (4.0-10.5) 06/08/20 06:08 RBC 3.82 10^6/uL (4.35-5.55) L 06/08/20 06:08 Hgb 11.2 g/dL (13.5-17.0) L 06/08/20 06:08 Hct 33.5 % (37.9-51.0) L 06/08/20 06:08 MCV 88 fl (80-97) 06/08/20 06:08 MCH 29.2 pg (27.0-33.4) 06/08/20 06:08 MCHC 33.3 g/dL (32.0-36.0) 06/08/20 06:08 RDW 14.0 % (11.5-14.0) 06/08/20 06:08 Plt Count 156 10^3/uL (150-450) 06/08/20 06:08 Lymph % (Auto) 19.9 % (13-45) 06/07/20 11:37 [place] % (Auto) 6.8 % (3-13) 06/07/20 11:37 Eos % (Auto) 2.1 % (0-6) 06/07/20 11:37 Baso % (Auto) 1.0 % (0-2) 06/07/20 11:37 Absolute Neuts (auto) 3.8 10^3/uL (1.7-8.2) 06/07/20 11:37 Absolute Lymphs (auto) 1.1 10^3/uL (0.5-4.7) 06/07/20 11:37 Absolute Monos (auto) 0.4 10^3/uL (0.1-1.4) 06/07/20 11:37 Absolute Eos (auto) 0.1 10^3/uL (0.0-0.6) 06/07/20 11:37 Absolute Basos (auto) 0.1 10^3/uL (0.0-0.2) 06/07/20 11:37 Seg Neutrophils % 70.2 % (42-78) 06/07/20 11:37 Sodium 137.0 mmol/L (137-145) 06/08/20 06:08 Potassium 3.9 mmol/L (3.6-5.0) 06/08/20 06:08 Chloride 104 mmol/L (98-107) 06/08/20 06:08 Carbon Dioxide 26 mmol/L (22-30) 06/08/20 06:08 Anion Gap 7 (5-19) 06/08/20 06:08 BUN 19 mg/dL (7-20) 06/08/20 06:08 Creatinine 1.03 mg/dL (0.52-1.25) 06/08/20 06:08 Est GFR ( Amer) > 60 (>60) 06/08/20 06:08 Est GFR (MDRD) Non-Af > 60 (>60) 06/08/20 06:08 Glucose 114 mg/dL (75-110) H 06/08/20 06:08 Hemoglobin A1c % 5.4 % (4.7-6.0) 06/08/20 06:08 Calcium 9.1 mg/dL (8.4-10.2) 06/08/20 06:08 Total Bilirubin 0.6 mg/dL (0.2-1.3) 06/07/20 11:37 Direct Bilirubin 0.0 mg/dL (0.0-0.4) 06/07/20 11:37 Neonat Total Bilirubin Not Reportable 06/07/20 11:37 Neonat Direct Bilirubin Not Reportable 06/07/20 11:37 Neonat Indirect Bili Not Reportable 06/07/20 11:37 AST 32 U/L (17-59) 06/07/20 11:37 ALT 28 U/L (<50) 06/07/20 11:37 Alkaline Phosphatase 59 U/L (38-126) 06/07/20 11:37 Creatine Kinase 83 U/L (55-170) 06/07/20 11:37 CK-MB (CK-2) 3.07 ng/mL (<4.55) 06/07/20 11:37 Troponin I 0.040 ng/mL 06/08/20 06:08 Total Protein 6.4 g/dL (6.3-8.2) 06/07/20 11:37 Albumin 4.0 g/dL (3.5-5.0) 06/07/20 11:37 Triglycerides 72 mg/dL (<150) 06/08/20 06:08 Cholesterol 111.87 mg/dL (0-200) 06/08/20 06:08 LDL Cholesterol Direct 51 mg/dL (<100) 06/08/20 06:08 VLDL Cholesterol 14.0 mg/dL (10-31) 06/08/20 06:08 HDL Cholesterol 49 mg/dL (>40) 06/08/20 06:08 TSH 1.00 uIU/mL (0.47-4.68) 06/08/20 06:08 Urine Color YELLOW 06/08/20 07:13 Urine Appearance CLEAR 06/08/20 07:13 Urine pH 6.0 (5.0-9.0) 06/08/20 07:13 Ur Specific Jelm 1.011 06/08/20 07:13 Urine Protein 30 mg/dL (NEGATIVE) H 06/08/20 07:13 Urine Glucose (UA) NEGATIVE mg/dL (NEGATIVE) 06/08/20 07:13 Urine Ketones NEGATIVE mg/dL (NEGATIVE) 06/08/20 07:13 Urine Blood NEGATIVE (NEGATIVE) 06/08/20 07:13 Urine Nitrite NEGATIVE (NEGATIVE) 06/08/20 07:13 Urine Bilirubin NEGATIVE (NEGATIVE) 06/08/20 07:13 Urine Urobilinogen NEGATIVE mg/dL (<2.0) 06/08/20 07:13 Ur Leukocyte Esterase NEGATIVE (NEGATIVE) 06/08/20 07:13 Urine WBC (Auto) 0 /HPF 06/08/20 07:13 Urine RBC (Auto) 0 /HPF 06/08/20 07:13 U Hyaline Cast (Auto) 3 /LPF 06/07/20 21:18 Urine Mucus (Auto) RARE /LPF 06/08/20 07:13 Urine Ascorbic Acid NEGATIVE (NEGATIVE) 06/08/20 07:13 06/07/20 06/07/20 06/07/20 11:37 15:55 18:20 CK-MB (CK-2) 3.07 Troponin I 0.034 0.047 0.040 06/07/20 06/08/20 23:10 06:08 CK-MB (CK-2) Troponin I 0.036 0.040 Impressions: Chest X-Ray 06/07/20 00:00 IMPRESSION: Chronic lung changes with no acute finding. Plan Plan of Treatment: Patient is discharged home in stable condition. He is advised follow-up with his primary care provider within 1 week. Follow-up with his established accountant machine processing, Dr. Sahu, as scheduled on 06/12/2020. Continue daily aspirin therapy. Continue home medication regiment unchanged. Return to the emergency department as needed for concerning symptoms. Time Spent: Greater than 30 Minutes Stroke Is this a Stroke Patient?: No Acute Heart Failure - Is this a Heart Failure Patient?: No
== END 2020-06-08 12:35 | disposition home or self-care (01) ==
LOC: ER 11:32 → EH 16:25 → 4N 20:28
PROVIDERS: ADMIT Internal Medicine; ATTEND Registered Nurse
DX: I16.0 Hypertensive urgency (principal); R07.9 Chest pain, unspecified; E78.5 Hyperlipidemia, unspecified; K21.9 Gastro-esophageal reflux disease without esophagitis; Z79.82 Long term (current) use of aspirin; Z79.01 Long term (current) use of anticoagulants; Z79.899 Other long term (current) drug therapy; I25.10 Atherosclerotic heart disease of native coronary artery without angina pectoris; Z95.0 Presence of cardiac pacemaker; J44.9 Chronic obstructive pulmonary disease, unspecified; Z87.891 Personal history of nicotine dependence; E11.9 Type 2 diabetes mellitus without complications; M19.90 Unspecified osteoarthritis, unspecified site; D64.9 Anemia, unspecified; Z91.040 Latex allergy status; I34.0 Nonrheumatic mitral (valve) insufficiency; I36.1 Nonrheumatic tricuspid (valve) insufficiency; I44.0 Atrioventricular block, first degree; I45.10 Unspecified right bundle-branch block; I49.3 Ventricular premature depolarization
CPT/HCPCS: 93005; 99285; 96374; 36415 ×2; 82553; 82550; 84443; 85025; 85027; 80048; 80053; 81001 ×2; 84484 ×2; 83036; 80061; 71046; 93010; G0378 ×3; J0360 ×2

== ENCOUNTER → 2020-07-31 | Outpatient (CLI) | payer OTHER, MEDICARE ==
[2020-07-31 12:50] LABS: ABSOLUTE EOSINOPHILS # (AUTO) 0.1 10^3/uL (0.0-0.6); ABSOLUTE LYMPHOCYTES (AUTO) 1.1 10^3/uL (0.5-4.7); ABSOLUTE MONOCYTES (AUTO) 0.4 10^3/uL (0.1-1.4); ABSOLUTE NEUT (AUTO) 3.2 10^3/uL (1.7-8.2); EOSINOPHILS % (AUTO) 1.4 % (0-6); HEMATOCRIT 31.4 % (37.9-51.0); HEMOGLOBIN 10.8 g/dL (13.5-17.0); LYMPHOCYTES % (AUTO) 22.4 % (13-45); MEAN CORPUSCULAR HEMOGLOBIN 29.9 pg (27.0-33.4); MEAN CORPUSCULAR HGB CONC 34.4 g/dL (32.0-36.0); MEAN CORPUSCULAR VOLUME 87 fl (80-97); MONOCYTES % (AUTO) 8.5 % (3-13); PLATELET COUNT 118 10^3/uL (150-450); RED BLOOD COUNT 3.61 10^6/uL (4.35-5.55); RED CELL DISTRIBUTION WIDTH 13.6 % (11.5-14.0); SEGMENTED NEUTROPHILS % (AUTO) 66.7 % (42-78); TOTAL CELLS COUNTED % (AUTO) 100 %; WHITE BLOOD COUNT 4.8 10^3/uL (4.0-10.5)
[2020-07-31 13:05] LABS: APPEARANCE,URINE CLEAR; BILIRUBIN,URINE NEGATIVE (NEGATIVE); COLOR,URINE YELLOW; GLUCOSE, URINE NEGATIVE (NEGATIVE); KETONES,URINE NEGATIVE (NEGATIVE); LEUKOCYTE ESTERASE,URINE NEGATIVE (NEGATIVE); NITRITE,URINE NEGATIVE (NEGATIVE); PROTEIN,URINE 100 mg/dL (NEGATIVE); UROBILINOGEN,URINE NEGATIVE mg/dL (<2.0)
[2020-07-31 13:12] LABS: ANION GAP 8 (5-19); BLOOD UREA NITROGEN 21 mg/dL (7-20); CALCIUM 9.2 mg/dL (8.4-10.2); CARBON DIOXIDE 28 mmol/L (22-30); CHLORIDE 105 mmol/L (98-107); GLUCOSE 98 mg/dL (75-110); IRON(TIBC) 14.7 ug/dL (49-181); POTASSIUM 4.5 mmol/L (3.6-5.0)
[2020-08-01 11:38] LABS: CREATININE URINE 190.5 mg/dL (Not Estab.); MICROALBUMIN URINE 315.3 ug/mL (Not Estab.)
== END ==
LOC: OD 12:15
PROVIDERS: ATTEND Internal Medicine Nephrology
DX: D50.9 Iron deficiency anemia, unspecified (principal); N18.2 Chronic kidney disease, stage 2 (mild); R80.9 Proteinuria, unspecified; E21.2 Other hyperparathyroidism
CPT/HCPCS: 36415; 80048; 81001; 82043; 82570; 82728; 83540; 83550; 83970; 85025

== ENCOUNTER 2020-10-26 05:42 | Emergency (ER) | payer MEDICARE, OTHER ==
[2020-10-26] MEDS ORDERED: KETOROLAC TROMETHAMINE INJ/PF 30 MG/1 ML SDV IV ONE (06:29)
[2020-10-26] MEDS ORDERED: NORMAL SALINE 1000 ML 1,000 ML IV ONE (06:29)
[2020-10-26] MEDS ORDERED: OXYCODONE-ACETAMINOPHEN 5-325 MG TABLET PO ONE (06:57)
--- NOTE | 2020-10-26 07:06 | ER Document Report ---
ED General - General Chief Complaint: Arm Pain Stated Complaint: RIGHT ARM PAIN Time Seen by Provider: 10/26/20 06:28 Primary Care Provider: MINGO BLAKE MD [Primary Care Provider] - Follow up as needed TRAVEL OUTSIDE OF THE [place] IN LAST 30 DAYS: No - HPI Notes: Chief complaint: Right elbow pain History of present illness: 79-year-old male states that he awakened this morning with severe pain and swelling right elbow. Describes pain as 8 is a 10 intensity. He denies any known history of trauma. States that he had a MRSA infection in this area several years ago. No fever or chills. No nausea or vomiting. History of borderline diabetes. - Related Data Allergies/Adverse Reactions: latex Allergy (Verified 04/26/20 03:06) Past Medical History - General Information source: Patient - Social History Smoking Status: Never Smoker Frequency of alcohol use: Rare Drug Abuse: None Family History: Reviewed & Not Pertinent - Past Medical History Cardiac Medical History: Reports: Hx Atrial Fibrillation, Hx Coronary Artery Disease, Hx Hypercholesterolemia, Hx Hypertension Denies: Hx Heart Attack Pulmonary Medical History: Reports: Hx COPD Denies: Hx Asthma, Hx Bronchitis, Hx Pneumonia, Hx Tuberculosis Neurological Medical History: Denies: Hx Cerebrovascular Accident, Hx Seizures Endocrine Medical History: Reports: Hx Diabetes Mellitus Type 2. Denies: Hx Diabetes Mellitus Type 1, Hx Hyperthyroidism, Hx Hypothyroidism Renal/ Medical History: Reports: Hx Kidney Stones, Hx Renal Insufficiency. Denies: Hx Peritoneal Dialysis GI Medical History: Reports: Hx Diverticulitis, Hx Gastroesophageal Reflux Disease, Hx Colonoscopy, Hx Endoscopy. Denies: Hx Cirrhosis, Hx Hepatitis Musculoskeletal Medical History: Reports Hx Arthritis, Denies Hx Gout, Reports Hx Musculoskeletal Deformity, Reports Hx Musculoskeletal Trauma Skin Medical History: Denies Hx Eczema, Denies Hx Psoriasis Psychiatric Medical History: Denies: Hx Depression Traumatic Medical History: Reports: Hx Fractures Infectious Medical History: Denies: Hx Hepatitis Past Surgical History: Reports: Hx Abdominal Surgery - had here, colon, Hx Bowel Surgery, Hx Herniorrhaphy, Hx Pacemaker, Hx Pancreatic Surgery - biopsy, Hx Testicular Surgery - hydrocele, Other - Partial colectomy - Immunizations Immunizations up to date: Yes Hx Diphtheria, Pertussis, Tetanus Vaccination: Yes Hx Pneumococcal Vaccination: 11/09/08 Review of Systems - Review of Systems Notes: Constitutional: Negative for fever. HENT: Negative for sore throat. Eyes: Negative for visual changes. Cardiovascular: Negative for chest pain. Respiratory: Negative for shortness of breath. Gastrointestinal: Negative for abdominal pain, vomiting or diarrhea. Genitourinary: Negative for dysuria. Musculoskeletal: As per HPI. Skin: Negative for rash. Neurological: Negative for headaches, weakness or numbness. 10 point ROS negative except as marked above and in HPI. Physical Exam - Vital signs Vitals: Temp Pulse Resp BP Pulse Ox 98.0 F 72 18 127/61 H 97 10/26/20 05:49 10/26/20 05:49 10/26/20 05:49 10/26/20 05:49 10/26/20 05:49 - Notes Notes: GENERAL: Slender elderly male appearing in moderate discomfort. SKIN: Patient has an area of excoriation over the lateral aspect of the right elbow. Mild warmth and soft tissue tenderness/swelling at the same area. No obvious fluctuance. Good turgor. HEAD: Normocephalic atraumatic. EYES: PERRLA. EOMI. Conjunctivae and sclerae clear. EARS: CANALS AND TMS CLEAR. NOSE: CLEAR. MOUTH: Moist mucosa. Good dentition. No stridor or edema. No drooling. NECK: Supple. No masses or thyromegaly. No adenopathy. Carotids 2+ without bruits. No JVD. BACK: Symmetrical without tenderness. CHEST: Respirations unlabored. Breath sounds clear and symmetrical. HEART: Pacemaker left anterior chest area. Regular rhythm. No murmur gallop or rub. ABDOMEN: Soft nontender without masses, organomegaly or rebound. Bowel sounds normally active. No bruits. GENITALIA: Deferred. EXTREMITIES: Pain with active/passive movement of right elbow joint. No calf tenderness. Cap refill less than 1.5 seconds. Dorsalis pedis and posterior tibial pulses 3+ and symmetrical. NEUROLOGICAL: GCS 15. Alert and oriented x3. Normal gait. Fluent speech. Cranial nerves II through XII intact. Sensorimotor and cerebellar normal. Normal tone. PSYCHIATRIC: Appropriate affect. Course - Re-evaluation Re-evalutation: 10/26/20 10:06 Clinically this man looks to have a cellulitis over the lateral epicondyle area right elbow. He is afebrile and he does not have elevation of his ESR or CRP. He does have advanced degenerative changes of the elbow: X-ray reviewed with radiologist. He also has a joint effusion. Because this man has a past history of left side initially gave him a dose of vancomycin 1 g IV. He also got some oral Percocet which relieved his pain adequately. We note this man has some baseline renal insufficiency with a creatinine of 1.3. His hemoglobin is 9.7. Findings were discussed with the on-call orthopedist Dr. Johnathon Brannon. He agrees with initial dose of IV antibiotic and suggested outpatient management with oral Septra and analgesics as well as a sling and he will see the patient back in the office. He agreed with me that arthrocentesis would not be appropriate intervention at this point due to potential overlying cellulitis and risk of infecting the joint space if it is not already infected. Findings, clinical impression and plan of treatment have been discussed with patient/family. Understanding of current findings and recommendations has been acknowledged by them and there is agreement regarding disposition and follow-up. - Vital Signs Vital signs: Temp Pulse Resp BP Pulse Ox 98.1 F 70 20 128/78 H 98 10/26/20 09:01 10/26/20 09:01 10/26/20 09:01 10/26/20 09:01 10/26/20 09:01 - Laboratory Results Result Diagrams: 10/26/20 07:08 10/26/20 07:08 Laboratory Results Interpreted: 10/26/20 10/26/20 07:08 07:08 RBC 3.28 L Hgb 9.5 L Hct 28.4 L RDW 14.5 H Plt Count 140 L Lymph % (Auto) 7.2 L Seg Neutrophils % 83.8 H Anion Gap 4 L Est GFR (MDRD) Non-Af 57 L Glucose 128 H Critical Laboratory Results Reviewed: Yes Attending or Supervising Physician who Reviewed Labs: CARLITOS HUSSEIN - Radiology Results Critical Radiology Results Reviewed: Yes Attending or Supervising Physician who Reviewed Radiology: CARLITOS HUSSEIN Discharge - Discharge Clinical Impression: Cellulitis right upper extremity, Osteoarthritis Condition: Stable Disposition: HOME, SELF-CARE Prescriptions: Oxycodone HCl/Acetaminophen [Percocet 5-325 mg Tablet] 1 tab PO Q6H PRN 5 Days #15 tab PRN Reason: Sulfamethoxazole/Trimethoprim [Septra-Ds 800-160 mg Tablet] 2 tab PO BID 10 Days #40 tablet Referrals: MINGO BLAKE MD [Primary Care Provider] - Follow up as needed LOW BRANNON MD [ACTIVE STAFF] - Follow up as needed
[2020-10-26] MEDS ORDERED: VANCOMYCIN HCL INJ 1000 MG VIAL IV ONE (07:11)
--- NOTE | 2020-10-26 07:14 | RADIOLOGY REPORT (SQ) ---
Right elbow x-ray three views on 10/26/2020 at 6:04 AM CLINICAL INDICATION: Right elbow pain COMPARISON: None FINDINGS: Prominent olecranon spur is noted. Degenerative changes are noted in the elbow with osteophyte formation. There is an elbow joint effusion. No definite acute fracture line is noted. Visualized joints are well aligned. No other bony abnormality is noted. IMPRESSION: 1. Changes of osteoarthritis with no acute fracture noted. 2. Joint effusion that could be related to an occult fracture. The joint effusion also could be related to the osteoarthritis or possibly infection and please correlate clinically.
[2020-10-26 07:20] LABS: ABSOLUTE BASOPHILS # (AUTO) 0.1 10^3/uL (0.0-0.2); ABSOLUTE EOSINOPHILS # (AUTO) 0.1 10^3/uL (0.0-0.6); ABSOLUTE LYMPHOCYTES (AUTO) 0.5 10^3/uL (0.5-4.7); ABSOLUTE MONOCYTES (AUTO) 0.5 10^3/uL (0.1-1.4); ABSOLUTE NEUT (AUTO) 6.3 10^3/uL (1.7-8.2); BASOPHILS % (AUTO) 0.8 % (0-2); EOSINOPHILS % (AUTO) 1.4 % (0-6); HEMATOCRIT 28.4 % (37.9-51.0); HEMOGLOBIN 9.5 g/dL (13.5-17.0); LYMPHOCYTES % (AUTO) 7.2 % (13-45); MEAN CORPUSCULAR HGB CONC 33.5 g/dL (32.0-36.0); MEAN CORPUSCULAR VOLUME 87 fl (80-97); MONOCYTES % (AUTO) 6.8 % (3-13); PLATELET COUNT 140 10^3/uL (150-450); RED BLOOD COUNT 3.28 10^6/uL (4.35-5.55); RED CELL DISTRIBUTION WIDTH 14.5 % (11.5-14.0); SEGMENTED NEUTROPHILS % (AUTO) 83.8 % (42-78); TOTAL CELLS COUNTED % (AUTO) 100 %; WHITE BLOOD COUNT 7.5 10^3/uL (4.0-10.5)
[2020-10-26 07:48] LABS: BLOOD UREA NITROGEN 20 mg/dL (7-20); CARBON DIOXIDE 30 mmol/L (22-30); CHLORIDE 104 mmol/L (98-107); GLUCOSE 128 mg/dL (75-110); POTASSIUM 4.4 mmol/L (3.6-5.0)
[2020-10-26 07:50] LABS: C-REACTIVE PROTEIN < 5.0 mg/L (<10.0)
[2020-10-26 07:53] LABS: ANION GAP 4 (5-19)
[2020-10-26 07:58] LABS: ERYTHROCYTE SEDIMENTATION RATE 12 mm/hr (0-20)
[2020-10-26 08:18] LABS: URIC ACID 5.6 mg/dL (3.5-8.5)
--- NOTE | 2020-10-26 09:00 | EKG REPORT ---
SEVERITY:- ABNORMAL ECG - SINUS OR ECTOPIC ATRIAL RHYTHM FIRST DEGREE AV BLOCK RIGHT BUNDLE BRANCH BLOCK LVH BY VOLTAGE : Confirmed by: Keila Calvin MD 26-Oct-2020 09:00:11
[2020-10-26 09:01] VITALS: BP 128/78
== END 2020-10-26 10:25 | disposition home or self-care (01) ==
LOC: ER 05:42
DX: L03.113 Cellulitis of right upper limb (principal); M19.021 Primary osteoarthritis, right elbow; M25.421 Effusion, right elbow; I48.91 Unspecified atrial fibrillation; I25.10 Atherosclerotic heart disease of native coronary artery without angina pectoris; E78.00 Pure hypercholesterolemia, unspecified; I10 Essential (primary) hypertension; J44.9 Chronic obstructive pulmonary disease, unspecified; Z86.14 Personal history of Methicillin resistant Staphylococcus aureus infection; Z91.040 Latex allergy status
CPT/HCPCS: 93005; 99285; 96374; 36415; 84550; 85025; 85652; 86140; 80048; 73070; 93010; A9270; J3370